=== PATIENT | female | born 1980 | race Caucasian/White ===

== ENCOUNTER → 2016-10-24 | Outpatient (REF) | payer MEDICARE, MEDICAID | LOC: M LAB REF 14:58 | PROVIDERS: ATTEND Physician Assistant | DX: J02.9 Acute pharyngitis, unspecified (principal) ==

== ENCOUNTER → 2016-11-11 | Outpatient (REF) | payer MEDICARE, MEDICAID | LOC: M LABNEURO 17:43 | PROVIDERS: ATTEND Physician Assistant Medical | DX: R51 Headache (principal) ==

== ENCOUNTER → 2017-01-24 | Outpatient (CLI) | payer MEDICARE, MEDICAID ==
[2017-01-28 00:06] LABS: LACOSAMIDE LEVEL 4.8 ug/mL (5.0-10.0)
== END ==
LOC: M WUC 08:43
PROVIDERS: ATTEND Psychiatry & Neurology Neurology
DX: G40.209 Localization-related (focal) (partial) symptomatic epilepsy and epileptic syndromes with complex partial seizures, not intractable, without status epilepticus (principal)

== ENCOUNTER 2017-09-01 08:54 | Day surgery (SDC) | payer MEDICARE, MEDICAID ==
[2017-09-01] MEDS: NS 1,000 ML IV (09:14)
[2017-09-01] MEDS ORDERED: fentaNYL 100 MCG/2 ML INJECTION (J3010) As Ordered (09:54)
[2017-09-01] MEDS ORDERED: PROPOFOL 200 MG/20 ML VIAL As Ordered ×2 (09:55→10:09)
[2017-09-01] MEDS ORDERED: LIDOCAINE 1% MDV 20ML VIAL As Ordered (09:55)
== END 2017-09-01 11:10 | disposition home or self-care (01) ==
LOC: M OPP 08:54
DX: Z12.11 Encounter for screening for malignant neoplasm of colon (principal); Z86.010 Personal history of colon polyps; K64.0 First degree hemorrhoids; R12 Heartburn; K22.8 Other specified diseases of esophagus; K21.9 Gastro-esophageal reflux disease without esophagitis; M79.7 Fibromyalgia; G43.909 Migraine, unspecified, not intractable, without status migrainosus; R56.9 Unspecified convulsions; J45.909 Unspecified asthma, uncomplicated; F41.9 Anxiety disorder, unspecified; F32.9 Major depressive disorder, single episode, unspecified; G47.30 Sleep apnea, unspecified; Z88.1 Allergy status to other antibiotic agents; Z88.5 Allergy status to narcotic agent; Z88.8 Allergy status to other drugs, medicaments and biological substances; Z91.018 Allergy to other foods; Z79.899 Other long term (current) drug therapy; Z80.1 Family history of malignant neoplasm of trachea, bronchus and lung; Z80.0 Family history of malignant neoplasm of digestive organs; Z80.3 Family history of malignant neoplasm of breast; Z87.891 Personal history of nicotine dependence
CPT/HCPCS: G0105

== ENCOUNTER → 2017-10-23 | Outpatient (CLI) | payer MEDICARE, MEDICAID | LOC: M WUC 12:55 | DX: S60.021A Contusion of right index finger without damage to nail, initial encounter (principal); Y92.89 Other specified places as the place of occurrence of the external cause; Y93.89 Activity, other specified; X58.XXXA Exposure to other specified factors, initial encounter; Y99.8 Other external cause status | CPT/HCPCS: 73140 ==

== ENCOUNTER → 2019-05-19 | Outpatient (CLI) | payer MEDICARE, MEDICAID ==
[~2019-05-19] MED LIST: AZEL1SPR3; BENA25CA4 PO; BIRTH; BOTO10VL SUBQ; DULO1CAP5 PO; EPIP0.3I2 IM; HYDR-3713 PO; HYDR50TA70 PO; SERT-138 PO; TEGR1TAB PO; VIMP200T PO
--- NOTE | 2019-06-02 01:13 | ECWPNPC ---
PATIENT NAME: TIFFANIE HUFF : 1980 GENDER: FEMALE VISIT DATE: 05/19/2019 DISCHARGE DATE: 05/19/19 1636 VISIT LOCKED DATE TIME: PHYSICIAN: YARA LIZ MD RESOURCE: YARA LIZ MD REASON FOR APPOINTMENT 1. FIBROMYALGIA HISTORY OF PRESENT ILLNESS PAIN SCREENING: PATIENT HAS A COMPLAINT OF ACUTE OR CHRONIC PAIN :YES 38 YEAR OLD FEMALE PATIENT WITH A HISTORY OF CHRONIC MULTIPLE BODY PAIN. THE PATIENT DESCRIBES THE PAIN BURNING, SHOOTING, DAILY, AND CONTINUOUS WITH A PAIN SCORE OF 6-10/10 DEPENDING ON PHYSICAL ACTIVITY. THE PATIENT STATES HER PAIN SPONTANEOUSLY BEGAN IN 2012. 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 THE PATIENT STATES SHE IS USING GABAPENTIN 300 MG AND CYMBALTA 30 MG 1 TABLET EACH DAILY. THE PATIENT SAYS SHE HAS RECEIVED TRIGGER POINT INJECTIONS IN THE PAST THAT HELPED WITH HER PAIN. PATIENT DENIES UNEXPLAINABLE WEIGHT LOSS, FEVER, CHILLS, NEW CHANGES ON HER URINARY OR BOWEL CONTROL. FALL RISK SCREENING: SCREENING :NO FALLS REPORTED IN THE LAST YEAR CURRENT MEDICATIONS TAKING GABAPENTIN 300 MG CAPSULE 1 CAPSULE ORALLY ONCE A DAY TAKING CYMBALTA 30 MG CAPSULE DELAYED RELEASE PARTICLES 1 CAPSULE ORALLY ONCE A DAY TAKING TEGRETOL 200 MG TABLET 600 MG ORALLY TWICE A DAY TAKING CANDESARTAN CILEXETIL 32 MG TABLET 1 TABLET ORALLY ONCE A DAY TAKING ZYRTEC 1 TAB ORAL DAILY TAKING DEDE 1 TAB ORALLY 180 MG DAILY TAKING LEVOCETIRIZINE DIHYDROCHLORIDE 5 MG TABLET 1 TABLET IN THE EVENING ORALLY ONCE A DAY TAKING DYMISTA NASAL SPRAY AZELASTINE HYRDOCHLORIDE 137MCG & FLUTICASONE PROPIONATE 50MCG( SOLUTION ONE SPRAY PER NOSTRIL NASALLLY TWICE DAILY TAKING DEXILANT 60 MG CAPSULE DELAYED RELEASE 1 CAPSULE ORALLY ONCE A DAY TAKING LINZESS 290 MCG CAPSULE ONE P.O. DAILY TAKING VIMPAT 100 MG TABLET 4 TABS ORALLY TWICE A DAY TAKING BOTOX 200 UNIT SOLUTION RECONSTITUTED INJECTION EVERY 3 MONTHS NOT-TAKING LEVOTHROID 25 MCG TABLET 1 TABLET ON AN EMPTY STOMACH IN THE MORNING P.O. ONCE A DAY NOT-TAKING FEXOFENADINE HCL 180 MG TABLET 1 TABLET P.O. ONCE A DAY NOT-TAKING FLUTICASONE FUROATE 27.5 MCG/SPRAY SUSPENSION 2 PUFFS NASALLY ONCE A DAY NOT-TAKING SUDAFED 30 MG TABLET 1 TABLET NEEDED ORALLY EVERY 6 HRS MEDICATION LIST REVIEWED AND RECONCILED WITH THE PATIENT PAST MEDICAL HISTORY EPILEPSY MIGRAINES WITH AURA ALLERGIES-SEASONAL ASTHMA MOBID OBESITY DEPRESSION ANXIETY CHRONIC PAIN FIBROMYALGIA CHRONIC CONSTIPATION ALLERGIES RASPBERRY: DYSPNEA - ALLERGY CIPRO: ANAPHYLAXIS - ALLERGY NITROFURANTOIN: ANAPHYLAXIS - ALLERGY CEFOTETAN DISODIUM: HIVES - ALLERGY ERYTHROMYCIN: HIVES - ALLERGY TREE NUTS: ANAPHYLAXIS - ALLERGY CAT & DOG: SNEEZING - ALLERGY MOLD: SNEEZING - ALLERGY CEFTIN: HIVES - ALLERGY FENTANYL: CHEST PAIN - ALLERGY CODEINE SULFATE: COULD INCREASE SEIZURE ACTIVITY - CONTRAINDICATION TRAMADOL HCL: COULD INCREASE SEIZURE ACTIVITY - CONTRAINDICATION TOPAMAX: SUICIDAL - SIDE EFFECTS SURGICAL HISTORY CHOLECYSTECTOMY 04/2012 T & A LIGAMENT REPAIR ON LEFT ANKLE AGE 18 LIGAMENT ON LEFT WRIST AGE 18 LIGAMENT REPAIR ON RIGHT SHOULDER AGE 18 GASTRIC BYPASS 04/26/19 FAMILY HISTORY FATHER: 67 YRS, LUNG CANCER, SEPSIS MOTHER: ALIVE 58 YRS, CERVICAL CANCER SIBLINGS: ALIVE MATERNAL GRAND MOTHER: , COLON CANCER PATERNAL AUNT: LATE 30'S YRS, BREAST CANCER, DIAGNOSED AT LATE 30 2 SISTER(S) - HEALTHY. 2DAUGHTER(S) - HEALTHY. COLON CA- M.GRANDMOTHERBREAST CANCER- PATERNAL AUNTS X 2FATHER- ASTHMA, COPDSIBLINGS- HEALTHY. SOCIAL HISTORY GENERAL: TOBACCO USE ARE YOU A:NEVER SMOKER OTHERS AT HOME: CHILDREN. HOUSING: OWNS HOME. EDUCATION LEVEL OF EDUCATION:COLLEGE DIET: REGULAR- S/P GASTRIC BYPASS 04/26/19. LANGUAGE LANGUAGES SPOKEN:PERSIAN DOMESTIC VIOLENCE NONE. NEW PATIENT PAIN DIARY PATIENT DESCRIBES PAIN :SHOOTING FROM 0-10, WHAT LEVEL IS YOUR PAIN TODAY?7 PRECIPITATING FACTORS LYING DOWN MAKES PAIN WORSE ALLEVIATING FACTORS LIDOCAINE INJECTIONS DID HELP HER BACK, BUT THEY WERE NOT USED ON ANY OTHER BODY PARTS, HEAT AND ICE DO HELP, STATES SHE CONTINUES TO DO PT- STATES IT DOES NOT HELP BUT ALSO DOES NOT MAKE PAIN WORSE, GABAPENTIN DOES NOT HELP- NEUROLOGIST DOES NOT WANT DOSE INCREASED DUE TO SEIZURE DISORDER IMPACT ON FUNCTION NOT ABLE TO DO NORMAL ACTIVITES, DOES NOT SLEEP WELL IS THERE A CHANCE YOU COULD BE ?NO HAVE YOU BEEN SICK IN THE LAST WEEK (COLD, COUGH, FEVER, FLU, ETC)NO DO YOU TAKE ANY BLOOD THINNERS?NO STOPPED LOVENOX 05/17/19 WAS ORDERED POST OP GASTRIC BYPASS LAST DOSE 05/17/19 DO YOU HAVE ANY RASHES OR OPEN SORES?NO ANY CHANGE IN BOWEL OR BLADDER CONTROL?NO ARE YOU ALLERGIC TO SHELLFISH OR IV DYE?NO ARE YOU DIABETIC?NO DO YOU HAVE A PACEMAKER OR DEFIBRILLATOR?NO ANY NEW PROBLEMS WITH MEDICINES OR NEW ALLERGIESNO ANY NEW PATTERNS OF PAIN OR NUMBNESS?NO HAVE YOU FALLEN IN THE LAST 6 MONTHS?NO DO YOU USE ANY TYPE OF TOBACCO (SMOKE, SMOKELESS, CHEW, ETC.)NO ARE YOU ABUSED, NEGLECTED, OR IN AN UNSAFE ENVIRONMENT?NO DO YOU HAVE THOUGHTS OF HURTING YOURSELF OR SOMEONE ELSE?NO INTENSITY SCALE REVIEWEDNUMBER RECREATIONAL DRUG USE DENIES. EXERCISE: USES ELLIPTICAL, TREADMILL, AND BIKE. LEARNING BARRIERS / SPECIAL NEEDS BARRIERS TO LEARNING?YES COMMENTSDOCUMENTED IN NOTES SECTION> LEARNING DISABILTY HEARING IMPAIRED?NO VISION IMPAIRED?YES GLASSES COGNITIVELY IMPAIRED?NO READINESS TO LEARN?YES LEARNING PREFERENCES?NO LEARNING CAPABILITIES PRESENT?YES EMOTIONAL BARRIERS?NO SPECIAL DEVICES?NO GOLD BEATER NEEDED?NO PAIN CLINIC PFS, CLERGY, PUBLIC HEALTH REFERRALS PFS REFERRAL NEEDED?NO CLERGY REFERRAL NEEDED?NO PUBLIC HEALTH REFERRAL NEEDED?NO WAS THE PROVIDER NOTIFIED OF ANY PERTINENT INFO?YES HAS THE PATIENT BEEN EDUCATED REGARDING HIS/HER PLAN OF CARE?YES HAS THE PATIENT BEEN EDUCATED REGARDING PAIN, THE RISK FOR PAIN, THE IMPORTANCE OF EFFECTIVE PAIN MANAGEMENT, AND THE PAIN ASSESSMENT PROCESS?YES LATEX QUESTIONNAIRE LATEX ALLERGY : HAVE YOU EVER DEVELOPED ANY TYPE OF REACTION AFTER HANDLING LATEX PRODUCTS SUCH RUBBER GLOVES, CONDOMS, DIAPHRAGMS, BALLOONS, SOCKS, OR UNDERWEAR?NO LATEX ALLERGY : HAVE YOU EVER DEVELOPED ANY TYPE OF REACTION DURING OR AFTER DENTAL APPOINTMENT, VAGINAL/RECTAL EXAMINATION, SURGICAL PROCEDURE, OR ANY OTHER EXPOSURE?NO LATEX RISK : HAVE YOU EVER HAD ANY DIFFICULTY BREATHING OR HIVES AFTER EATING OR HANDLING ANY FRUITS, OR VEGETABLES; SUCH KIWI, BANANAS, STONE FRUITS, OR CHESTNUTSNO LATEX RISK : DO YOU HAVE A PREVIOUS PERSONAL HISTORY OF MORE THAN NINE SURGERIES, SPINA BIFIDA, OR REPEATED CATHERIZATIONS? NO LATEX RISK : ARE YOU FREQUENTLY EXPOSED TO LATEX PRODUCTS IN YOUR OCCUPATION?NO DATE ASKED : 05/19/2019 CAFFEINE 1-2/DAY. ADVANCE DIRECTIVE ADVANCE DIRECTIVE DISCUSSED WITH PATIENT:YES ANCELMO BARNETT [phone] (SO) MARITAL STATUS: SINGLE, WITH PARTNER FOR TEN YEARS. 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 HOSPITALIZATION/MAJOR DIAGNOSTIC PROCEDURE CHILDBIRTH SURGERIES REVIEW OF SYSTEMS REVIEWED BY: PROVIDER: YARA LIZ MD . CONSTITUTIONAL: ANY CHANGE IN YOUR MEDICAL CONDITION? NO . CHILLS NO . FEVER NO . INFECTION: DO YOU HAVE NEW INFECTIONS? NO . DO YOU HAVE HISTORY OF MRSA? NO . MUSCULOSKELETAL: ANY NEW PATTERNS OF PAIN OR NUMBNESS? YES- FIBROMYALGIA PAIN, PAIN IN BIALTERAL NECK, BIALTERAL SHOULDERS, BIALTERAL HANDS, BILATERAL HIPS, BILATERAL LOWER BACK AND BILATERAL KNEES . SYTEMIC LUPUS NO . GASTROENTEROLOGY: ANY NEW CHANGE IN BOWEL CONTROL? NO . BARRETTS ESOPHAGUS NO . CIRRHOSIS NO . HEPATITIS NO . LIVER FAILURE NO . ACID REFLUX YES . UNEXPLAINED WEIGHT LOSS NO . GENITOURINARY: ANY NEW CHANGE IN BLADDER CONTROL? NO . IS THERE A CHANCE YOU COULD BE ? NO . HEMATOLOGY/LYMPH: DO YOU TAKE ANY BLOOD THINNERS? (FOR EXAMPLE- COUMADIN, PLAVIX, AGGRENOX, PLATEL, PRADAXA, OR XARELTO) NO- JUST FINISHED 20 DAYS DOSE POST GASTRIC BYPASS SURGERY, LAST DOSE WAS 05/17/19 LOVENOX DAILY . WHEN WAS YOUR LAST DOSE? DATE: TIME: . LOW PLATELET COUNT NO . SICKLE CELL DISEASE NO . VON WILLIEBRANDS NO . FACTOR V LEIDEN NO . THALLASEMIA NO . ANEMIA NO . EASY BRUISING NO . NEUROLOGY: HAVE YOU FALLEN IN THE PAST 12 MONTHS? NO . ANY NEW EXTREMITY NUMBNESS OR WEAKNESS? YES- NUMBNESS IN RIGHT LEG . HEAD INJURY YES- HEAD INJURY WITH CONCUSSION AT AGE 15 AND ALSO WHEN SHE STARTED HAVING SEIZURES . DEMENTIA NO . CEREBRAL PALSY NO . MULTIPLE SCLEROSIS NO . DIZZINESS NO . HEADACHE HAS A HISTORY OF MIGRAINES . STROKES NO . VERTIGO NO . CARDIOLOGY: DO YOU HAVE A PACEMAKER OR DEFIBRILLATOR? NO . ANGINA NO . HEART ATTACK NO . HEART SURGERY NO . CONGESTIVE HEART FAILURE/FLUID OVERLOAD NO . CHEST PAIN NO . HIGH BLOOD PRESSURE NO . IRREGULAR HEART BEAT NO . RESPIRATORY: HAVE YOU BEEN SICK IN THE PAST WEEK? NO . FEVER NO . FLU LIKE SYMPTOMS? NO . CPAP NO- USED TO WEAR CPAP . BYPAP NO . ASTHMA YES . EMPHYSEMA NO . CHRONIC LUNG DISEASES NO . SHORTNESS OF BREATH ON EXERTION NO . COUGH NO . SNORING NO . INTEGUMENTARY: DO YOU HAVE ANY RASHES OR OPEN SORES? NO . ALLERGIC/IMMUNO: ARE YOU ALLERGIC TO IV DYE? NO . ANY NEW ALLERGIES? NO . PSYCHIATRIC: DO YOU HAVE THOUGHTS OF HURTING YOURSELF OR SOMEONE ELSE? NO . ARE YOU ABUSED, NEGLECTED, OR IN AN UNSAFE ENVIRONMENT? NO . ENDOCRINOLOGY: ARE YOU DIABETIC? NO . THYROID DISORDER NO . OTHER: DO YOU NEED ANY PRESCRIPTIONS? NO . IF YES, PLEASE LIST: ____ . ANY NEW PROBLEMS WITH YOUR MEDICATIONS? NO . WHEN DID YOU LAST EAT? ____ . WHEN DID YOU LAST DRINK? ____ . WHAT DID YOU LAST DRINK? ____ . NAME OF PERSON DRIVING YOU HOME? ____ . DO YOU HAVE ANY OTHER QUESTIONS OR CONCERNS YES- STATES SHE HAS PAIN IN SEVERAL AREAS THOUGHT TO BE FIBROMYALGIA PAIN, WOULD LIKE HELP WITH PAIN CONTROL . VITAL SIGNS WT 251.6 LBS, HT 63.5 IN, BMI 43.87 INDEX, BP 120/77 MM HG, HR 90 /MIN, RR 18 /MIN, TEMP 97.4 F, OXYGEN SAT % 98%, SAFE IN ENV? (Y/N) YES, NA INITIALS SC 14:25, REVIEWED BY: PRECIOUS. EXAMINATION GENERAL EXAMINATION: PATIENT IS ALERT O X 3 AND COOPERATIVE. LUNGS CLEAR, TO AUSCULTATION. HEART: NO MURMURS OR GALLOPS; FACIAL CRANIAL NERVES ARE GROSSLY NORMAL. GOOD SYMMETRY OF FACIAL MUSCLE MOVEMENT. NORMAL VISUAL GONZALEZ. TENDERNESS IN THE PARASPINAL MUSCLE GROUPS OF THE CERVICAL AND LOW BACK. PRESENCE OF BANDS OF TISSUE AND TRIGGER POINTS WITH RESTRICTION OF MOVEMENT OF THE NECK AND LOW BACK. THE PATIENT REPORTS SHE HAS HAD SOME STUDIES DONE IN THE PAST. MRI OF THE CERVICAL SPINE DONE ON 03/02/2018 SHOWS SOME SIGNAL CHANGES AT THE BASE OF THE DENS WITH DISCONTINUITY OF THE ANTERIOR CORTEX AND OSTEOPHYTE COMPLEXES OVER MULTIPLE LEVELS. MRI OF THE LUMBAR SPINE DONE ON 03/02/2018 SHOWS SMALL DISK OSTEOPHYTE COMPLEX AT L5-S1. 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 TREATMENT PAIN OF MULTIPLE SITES CLINICAL NOTES: WE DISCUSSED SEVERAL ISSUES WITH MS. ROMO'S PAIN MANAGEMENT CASE. DUE TO THE TRIGGER POINTS, BANDS OF TISSUE, AND RESTRICTION OF MOVEMENT, I WOULD LIKE TO MOVE FORWARD WITH A TRIGGER POINT INJECTION AT THIS TIME. WE DISCUSSED THE BENEFITS, RISKS, AND ALTERNATIVES OF THE INJECTION AND THE PATIENT WOULD LIKE TO PROCEED. DEPENDING ON THE TRIGGER POINT INJECTION RESULTS, I MAY CONSIDER TRYING FACET BLOCKS OR RADIOFREQUENCY ABLATION IN THE FUTURE. I WILL REQUEST COPIES OF THE PATIENT'S LUMBAR AND CERVICAL MRI'S THAT WERE DONE AT [facility]. THE PATIENT WILL FOLLOW UP IN SEVERAL WEEKS AFTER HER INJECTION. INSTRUCTIONS WERE GIVEN, QUESTIONS WERE ANSWERED, PATIENT REPORTS UNDERSTANDING AND AGREES WITH THE PLAN. I, JAZMINE ANDINO, DOCUMENTED THE ABOVE INFORMATION ACTING A SCRIBE FOR DR. LIZ. I HAVE REVIEWED THE ABOVE DOCUMENT, WRITTEN BY JAZMINE DIORIBJessica AND I VERIFY THAT IT IS ACCURATE. DEAR HUGO MARION NP: THANK YOU FOR YOUR KIND REFERRAL OF TIFFANIE BARNETT. IF YOU WANT TO DISCUSS HER CASE WITH ME PLEASE CALL ME AT THE PAIN CENTER AT [phone]. SINCERELY, YARA LIZ MD PAIN MEDICINE . OTHERS NOTES: TRIGGER POINT INJECTION MATERIAL WAS PRINTED. PROCEDURE CODES FA211 ESTABILISHED PATIENT [facility] FACILITY CHARGE [id number] CURRENT MEDS W/DOSAGES DOCUMENTED G8730 PAIN ASSESS POS TOOL F/U PLAN DOC DISPOSITION & COMMUNICATION FOLLOW UP REASON: TPI ELECTRONICALLY SIGNED BY YARA LIZ MD, MD ON 06/01/2019 AT 03:07 PM EDT DISCLAIMER : THIS IS A VISIT SUMMARY EXTRACTED FROM THE [employer] CHART. IT IS NOT A COPY OF THE [employer] PROGRESS NOTE. MTDD
== END ==
LOC: M PAIN 14:15
PROVIDERS: ATTEND Anesthesiology
DX: M54.2 Cervicalgia (principal); M79.18 Myalgia, other site; M48.061 Spinal stenosis, lumbar region without neurogenic claudication; M47.816 Spondylosis without myelopathy or radiculopathy, lumbar region; G40.909 Epilepsy, unspecified, not intractable, without status epilepticus; G43.109 Migraine with aura, not intractable, without status migrainosus; J45.909 Unspecified asthma, uncomplicated; K21.9 Gastro-esophageal reflux disease without esophagitis; Z86.59 Personal history of other mental and behavioral disorders; Z98.84 Bariatric surgery status; Z88.1 Allergy status to other antibiotic agents; Z88.5 Allergy status to narcotic agent; Z88.8 Allergy status to other drugs, medicaments and biological substances; Z91.018 Allergy to other foods; E66.01 Morbid (severe) obesity due to excess calories; Z68.41 Body mass index [BMI] 40.0-44.9, adult; Z79.899 Other long term (current) drug therapy

== ENCOUNTER → 2019-05-26 | Outpatient (CLI) | payer MEDICARE, MEDICAID ==
[2019-05-26 12:59] LABS: BASO % 0.5 % (0.0-1.0); EOS # 0.1 10^3/uL (0.0-0.5); HEMATOCRIT 42.3 % (36.0-47.0); HEMOGLOBIN 14.8 g/dl (12.0-15.5); LYMPH # 1.8 10^3/uL (1.5-5.0); LYMPH % 31.1 % (24.0-44.0); MEAN CORPUSCULAR HEMOGLOBIN 33.4 pg (27.0-33.0); MEAN CORPUSCULAR VOLUME 95.5 fl (80.0-96.0); MONO # 0.6 10^3/uL (0.0-0.8); MONO % 9.6 % (0.0-5.0); NEUTROPHILS # 3.3 10^3/uL (1.5-8.5); NEUTROPHILS % 57.5 % (36.0-66.0); PLATELET COUNT, AUTOMATED 208 10^3/uL (150-450); RED BLOOD COUNT 4.43 10^6/uL (4.00-5.40); WHITE BLOOD COUNT 5.7 10^3/uL (4.0-10.0)
[2019-05-26 13:00] LABS: HEMATOCRIT 42.3 % (36.0-47.0)
[2019-05-26 13:17] LABS: HEMOGLOBIN A1c 4.4 %
[2019-05-26 13:31] LABS: ALBUMIN 3.6 GM/DL (3.2-5.2); ALT/SGPT 39 U/L (12-78); BILIRUBIN,TOTAL 0.4 MG/DL (0.2-1.0); BLOOD UREA NITROGEN 12 MG/DL (7-18); CALCIUM LEVEL 8.7 MG/DL (8.5-10.1); CARBON DIOXIDE LEVEL 27 MEQ/L (21-32); CHLORIDE LEVEL 101 MEQ/L (98-107); CREATININE FOR GFR 0.67 MG/DL (0.55-1.30); FERRITIN 64 NG/ML (8-252); GLOMERULAR FILTRATION RATE > 60.0 (>60); GLUCOSE, FASTING 66 MG/DL (70-100); IRON (FE) 72 UG/DL (50-170); MAGNESIUM LEVEL 2.1 MG/DL (1.8-2.4); PERCENT SATURATION 39.8 % (13.2-45.0); PHOSPHORUS LEVEL 2.7 MG/DL (2.5-4.9); POTASSIUM SERUM 3.2 MEQ/L (3.5-5.1); SODIUM LEVEL 139 MEQ/L (136-145); TOTAL IRON BINDING CAPACITY 181 UG/DL (250-450); TOTAL PROTEIN 6.5 GM/DL (6.4-8.2)
[2019-05-26 13:39] LABS: TOTAL 25(OH) VITAMIN D 44.7 NG/ML (30.0-100.0); VITAMIN B12 LEVEL 826 PG/ML (247-911)
== END ==
LOC: M WUC 10:31
PROVIDERS: ATTEND Surgery
DX: K91.2 Postsurgical malabsorption, not elsewhere classified (principal); E55.9 Vitamin D deficiency, unspecified; Z98.84 Bariatric surgery status; G40.909 Epilepsy, unspecified, not intractable, without status epilepticus

== ENCOUNTER → 2019-05-26 | Outpatient (CLI) | payer MEDICARE, MEDICAID | LOC: M WUC 10:39 | PROVIDERS: ATTEND Nurse Practitioner | DX: G40.909 Epilepsy, unspecified, not intractable, without status epilepticus (principal) ==

== ENCOUNTER → 2019-06-27 | Outpatient (CLI) | payer MEDICARE, MEDICAID | LOC: M WUC 10:43 | PROVIDERS: ATTEND Nurse Practitioner | DX: G40.909 Epilepsy, unspecified, not intractable, without status epilepticus (principal) ==

== ENCOUNTER → 2019-07-20 | Outpatient (CLI) | payer MEDICARE, MEDICAID ==
[~2019-07-20] MED LIST changes: +BUPIVACAINE HCL 0.25% 10 ML VIAL As Ordered ONE; +BUPIVACAINE HCL 0.25% 30 ML VIAL As Ordered ONE; +TRIAMCINOLONE ACETONIDE SUSP 40 MG/ML VIAL (J3301) As Ordered ONE; +diazePAM 5 MG TAB As Ordered ONE
--- NOTE | 2019-07-27 04:08 | ECWPNPC ---
PATIENT NAME: TIFFANIE HUFF : 1980 GENDER: FEMALE VISIT DATE: 07/20/2019 DISCHARGE DATE: 07/20/19 1051 VISIT LOCKED DATE TIME: PHYSICIAN: YARA LIZ MD RESOURCE: YARA LIZ MD REASON FOR APPOINTMENT 1. TPI HISTORY OF PRESENT ILLNESS HISTORY OF PRESENT ILLNESS: PAIN THE PATIENT DESCRIBES THE PAIN... FALL RISK SCREENING: SCREENING :NO FALLS REPORTED IN THE LAST YEAR CURRENT MEDICATIONS TAKING GABAPENTIN 300 MG CAPSULE 1 CAPSULE ORALLY ONCE A DAY, NOTES: 07/19/191999 TAKING CYMBALTA 30 MG CAPSULE DELAYED RELEASE PARTICLES 1 CAPSULE ORALLY ONCE A DAY, NOTES: 07/19/191999 TAKING TEGRETOL 200 MG TABLET 3 TABLET ORALLY TWICE A DAY, NOTES: 07/20/2019 0730 TAKING CANDESARTAN CILEXETIL 32 MG TABLET 1 TABLET ORALLY ONCE A DAY, NOTES: 07/19/191999 TAKING ZYRTEC 1 TAB ORAL DAILY, NOTES: 07/19/191999 TAKING DEDE 1 TAB ORALLY 180 MG DAILY, NOTES: 07/19/191999 TAKING LEVOCETIRIZINE DIHYDROCHLORIDE 5 MG TABLET 1 TABLET IN THE EVENING ORALLY ONCE A DAY, NOTES: 07/19/291999 TAKING DYMISTA NASAL SPRAY AZELASTINE HYRDOCHLORIDE 137MCG & FLUTICASONE PROPIONATE 50MCG( SOLUTION ONE SPRAY PER NOSTRIL NASALLLY TWICE DAILY, NOTES: 07/19/191999 TAKING DEXILANT 60 MG CAPSULE DELAYED RELEASE 1 CAPSULE ORALLY ONCE A DAY, NOTES: 07/19/191999 TAKING LINZESS 290 MCG CAPSULE ONE P.O. DAILY, NOTES: 07/19/19 08 TAKING VIMPAT 100 MG TABLET 4 TABS ORALLY TWICE A DAY, NOTES: 07/20/19 08 TAKING BOTOX 200 UNIT SOLUTION RECONSTITUTED INJECTION EVERY 3 MONTHS, NOTES: 06/24/19 NOT-TAKING LEVOTHROID 25 MCG TABLET 1 TABLET ON AN EMPTY STOMACH IN THE MORNING P.O. ONCE A DAY NOT-TAKING FEXOFENADINE HCL 180 MG TABLET 1 TABLET P.O. ONCE A DAY NOT-TAKING FLUTICASONE FUROATE 27.5 MCG/SPRAY SUSPENSION 2 PUFFS NASALLY ONCE A DAY NOT-TAKING SUDAFED 30 MG TABLET 1 TABLET NEEDED ORALLY EVERY 6 HRS MEDICATION LIST REVIEWED AND RECONCILED WITH THE PATIENT PAST MEDICAL HISTORY MIGRAINES WITH AURA EPILEPSY ALLERGIES-SEASONAL ASTHMA MOBID OBESITY DEPRESSION ANXIETY CHRONIC PAIN FIBROMYALGIA CHRONIC CONSTIPATION ALLERGIES RASPBERRY: DYSPNEA - ALLERGY CIPRO: ANAPHYLAXIS - ALLERGY NITROFURANTOIN: ANAPHYLAXIS - ALLERGY CEFOTETAN DISODIUM: HIVES - ALLERGY ERYTHROMYCIN: HIVES - ALLERGY TREE NUTS: ANAPHYLAXIS - ALLERGY CAT & DOG: SNEEZING - ALLERGY MOLD: SNEEZING - ALLERGY CEFTIN: HIVES - ALLERGY FENTANYL: CHEST PAIN - ALLERGY CODEINE SULFATE: COULD INCREASE SEIZURE ACTIVITY - CONTRAINDICATION TRAMADOL HCL: COULD INCREASE SEIZURE ACTIVITY - CONTRAINDICATION TOPAMAX: SUICIDAL - SIDE EFFECTS SURGICAL HISTORY CHOLECYSTECTOMY 04/2012 LIGAMENT REPAIR ON LEFT ANKLE AGE 18 LIGAMENT ON LEFT WRIST AGE 18 LIGAMENT REPAIR ON RIGHT SHOULDER AGE 18 GASTRIC BYPASS 04/26/19 FAMILY HISTORY FATHER: 67 YRS, LUNG CANCER, SEPSIS MOTHER: ALIVE 58 YRS, CERVICAL CANCER SIBLINGS: ALIVE MATERNAL GRAND MOTHER: , COLON CANCER PATERNAL AUNT: LATE 30'S YRS, BREAST CANCER, DIAGNOSED AT LATE 30 2 SISTER(S) - HEALTHY. 2DAUGHTER(S) - HEALTHY. COLON CA- M.GRANDMOTHERBREAST CANCER- PATERNAL AUNTS X 2FATHER- ASTHMA, COPDSIBLINGS- HEALTHY. SOCIAL HISTORY GENERAL: TOBACCO USE ARE YOU A:: NEVER SMOKER. OTHERS AT HOME: CHILDREN. HOUSING: OWNS HOME. EDUCATION LEVEL OF EDUCATION:COLLEGE DIET: REGULAR- S/P GASTRIC BYPASS 04/26/19. LANGUAGE LANGUAGES SPOKEN:ICELANDIC DOMESTIC VIOLENCE NONE. NEW PATIENT PAIN DIARY PATIENT DESCRIBES PAIN :SHOOTING FROM 0-10, WHAT LEVEL IS YOUR PAIN TODAY?7 PRECIPITATING FACTORS LYING DOWN MAKES PAIN WORSE ALLEVIATING FACTORS LIDOCAINE INJECTIONS DID HELP HER BACK, BUT THEY WERE NOT USED ON ANY OTHER BODY PARTS, HEAT AND ICE DO HELP, STATES SHE CONTINUES TO DO PT- STATES IT DOES NOT HELP BUT ALSO DOES NOT MAKE PAIN WORSE, GABAPENTIN DOES NOT HELP- NEUROLOGIST DOES NOT WANT DOSE INCREASED DUE TO SEIZURE DISORDER IMPACT ON FUNCTION NOT ABLE TO DO NORMAL ACTIVITES, DOES NOT SLEEP WELL IS THERE A CHANCE YOU COULD BE ?NO HAVE YOU BEEN SICK IN THE LAST WEEK (COLD, COUGH, FEVER, FLU, ETC)NO DO YOU TAKE ANY BLOOD THINNERS?NO STOPPED LOVENOX 05/17/19 WAS ORDERED POST OP GASTRIC BYPASS LAST DOSE 05/17/19 DO YOU HAVE ANY RASHES OR OPEN SORES?NO ANY CHANGE IN BOWEL OR BLADDER CONTROL?NO ARE YOU ALLERGIC TO SHELLFISH OR IV DYE?NO ARE YOU DIABETIC?NO DO YOU HAVE A PACEMAKER OR DEFIBRILLATOR?NO ANY NEW PROBLEMS WITH MEDICINES OR NEW ALLERGIESNO ANY NEW PATTERNS OF PAIN OR NUMBNESS?NO HAVE YOU FALLEN IN THE LAST 6 MONTHS?NO DO YOU USE ANY TYPE OF TOBACCO (SMOKE, SMOKELESS, CHEW, ETC.)NO ARE YOU ABUSED, NEGLECTED, OR IN AN UNSAFE ENVIRONMENT?NO DO YOU HAVE THOUGHTS OF HURTING YOURSELF OR SOMEONE ELSE?NO INTENSITY SCALE REVIEWEDNUMBER RECREATIONAL DRUG USE DENIES. EXERCISE: USES ELLIPTICAL, TREADMILL, AND BIKE. LEARNING BARRIERS / SPECIAL NEEDS BARRIERS TO LEARNING?YES COMMENTSDOCUMENTED IN NOTES SECTION> LEARNING DISABILTY HEARING IMPAIRED?NO VISION IMPAIRED?YES GLASSES COGNITIVELY IMPAIRED?NO READINESS TO LEARN?YES LEARNING PREFERENCES?NO LEARNING CAPABILITIES PRESENT?YES EMOTIONAL BARRIERS?NO SPECIAL DEVICES?NO MECHANIC HELPER NEEDED?NO PAIN CLINIC PFS, CLERGY, PUBLIC HEALTH REFERRALS PFS REFERRAL NEEDED?NO CLERGY REFERRAL NEEDED?NO PUBLIC HEALTH REFERRAL NEEDED?NO WAS THE PROVIDER NOTIFIED OF ANY PERTINENT INFO?YES HAS THE PATIENT BEEN EDUCATED REGARDING HIS/HER PLAN OF CARE?YES HAS THE PATIENT BEEN EDUCATED REGARDING PAIN, THE RISK FOR PAIN, THE IMPORTANCE OF EFFECTIVE PAIN MANAGEMENT, AND THE PAIN ASSESSMENT PROCESS?YES LATEX QUESTIONNAIRE LATEX ALLERGY : HAVE YOU EVER DEVELOPED ANY TYPE OF REACTION AFTER HANDLING LATEX PRODUCTS SUCH RUBBER GLOVES, CONDOMS, DIAPHRAGMS, BALLOONS, SOCKS, OR UNDERWEAR?NO LATEX ALLERGY : HAVE YOU EVER DEVELOPED ANY TYPE OF REACTION DURING OR AFTER DENTAL APPOINTMENT, VAGINAL/RECTAL EXAMINATION, SURGICAL PROCEDURE, OR ANY OTHER EXPOSURE?NO DATE ASKED : 05/19/2019 LATEX RISK : HAVE YOU EVER HAD ANY DIFFICULTY BREATHING OR HIVES AFTER EATING OR HANDLING ANY FRUITS, OR VEGETABLES; SUCH KIWI, BANANAS, STONE FRUITS, OR CHESTNUTSNO LATEX RISK : DO YOU HAVE A PREVIOUS PERSONAL HISTORY OF MORE THAN NINE SURGERIES, SPINA BIFIDA, OR REPEATED CATHERIZATIONS? NO LATEX RISK : ARE YOU FREQUENTLY EXPOSED TO LATEX PRODUCTS IN YOUR OCCUPATION?NO CAFFEINE 1-2/DAY. ADVANCE DIRECTIVE ADVANCE DIRECTIVE DISCUSSED WITH PATIENT:YES ANCELMO BARNETT [phone] (SO) MARITAL STATUS: SINGLE, WITH PARTNER FOR TEN YEARS. 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 PRE PROCEDURE PHONE CALL 07/11/19 1035 BV. HOSPITALIZATION/MAJOR DIAGNOSTIC PROCEDURE CHILDBIRTH SURGERIES REVIEW OF SYSTEMS REVIEWED BY: PROVIDER: . CONSTITUTIONAL: ANY CHANGE IN YOUR MEDICAL CONDITION? NO . CHILLS NO . FEVER NO . INFECTION: DO YOU HAVE NEW INFECTIONS? NO . DO YOU HAVE HISTORY OF MRSA? NO . MUSCULOSKELETAL: ANY NEW PATTERNS OF PAIN OR NUMBNESS? NO . GASTROENTEROLOGY: ANY NEW CHANGE IN BOWEL CONTROL? NO . GENITOURINARY: ANY NEW CHANGE IN BLADDER CONTROL? NO . IS THERE A CHANCE YOU COULD BE ? NO . HEMATOLOGY/LYMPH: DO YOU TAKE ANY BLOOD THINNERS? (FOR EXAMPLE- COUMADIN, PLAVIX, AGGRENOX, PLATEL, PRADAXA, OR XARELTO) NO . WHEN WAS YOUR LAST DOSE? DATE: TIME: . NEUROLOGY: HAVE YOU FALLEN IN THE PAST 12 MONTHS? NO . ANY NEW EXTREMITY NUMBNESS OR WEAKNESS? NO . CARDIOLOGY: DO YOU HAVE A PACEMAKER OR DEFIBRILLATOR? NO . RESPIRATORY: HAVE YOU BEEN SICK IN THE PAST WEEK? NO . FEVER NO . FLU LIKE SYMPTOMS? NO . COUGH NO . INTEGUMENTARY: DO YOU HAVE ANY RASHES OR OPEN SORES? NO . ALLERGIC/IMMUNO: ARE YOU ALLERGIC TO IV DYE? NO . ANY NEW ALLERGIES? NO . PSYCHIATRIC: DO YOU HAVE THOUGHTS OF HURTING YOURSELF OR SOMEONE ELSE? NO . ARE YOU ABUSED, NEGLECTED, OR IN AN UNSAFE ENVIRONMENT? NO . ENDOCRINOLOGY: ARE YOU DIABETIC? NO . OTHER: DO YOU NEED ANY PRESCRIPTIONS? NO . IF YES, PLEASE LIST: ____ . ANY NEW PROBLEMS WITH YOUR MEDICATIONS? NO . WHEN DID YOU LAST EAT? ____07/19/19 2200 . WHEN DID YOU LAST DRINK? ____07/20/19 0730 . WHAT DID YOU LAST DRINK? ____WATER . NAME OF PERSON DRIVING YOU HOME? ____LM YADAV . DO YOU HAVE ANY OTHER QUESTIONS OR CONCERNS NO . VITAL SIGNS WT 230.8 LBS, HT 63.5 IN, BMI 40.24 INDEX, BP 127/81 MM HG, HR 91 /MIN, RR 18 /MIN, TEMP 97.6 F, OXYGEN SAT % 97%, SAFE IN ENV? (Y/N) YES, NA INITIALS AW 0933, REVIEWED BY: RAJ. ASSESSMENTS MYALGIA, OTHER SITE - M79.18 (PRIMARY) PROCEDURES PN TRIGGER POINT INJECTION WITH STEROIDS PRE PROCEDURE DIAGNOSIS 1. MYALGIA 2. PAIN AT BILATERAL LUMBAR AREA. POST PROCEDURE DIAGNOSIS 1. MYALGIA 2. PAIN AT BILATERAL LUMBAR AREA. PROCEDURE TRIGGER POINT INJECTION AT RIGHT AND LEFT LOW BACK AREA. SURGEON DR. YARA LIZ SENIOR RESEARCH FELLOW NONE ANESTHESIA LOCAL PRE PROCEDURE NOTE THE PATIENT HAS A HISTORY OF CHRONIC PAIN AT THE RIGHT AND LEFT LOW BACK AREA. I EVALUATED THE PATIENT AND REVIEWED THE CHART. THERE IS EVIDENCE OF BANDS OF TISSUE WITH RESTRICTION OF MOVEMENT AND PRESENCE OF TRIGGER POINT AT THE AFFECTED AREA. I WENT OVER THE RISKS, ALTERNATIVES, AND BENEFITS ASSOCIATED WITH THIS PROCEDURE. THE PATIENT WOULD LIKE TO PROCEED AND GIVES CONSENT TO PERFORM THE PROCEDURE. THE PATIENT DENIES UNEXPLAINABLE WEIGHT LOSS, FEVER, CHILLS, OR NEW CHANGES IN URINARY OR BOWEL CONTROL DESCRIPTION OF PROCEDURE THE PATIENT WAS BROUGHT TO THE PROCEDURE ROOM AND PLACED IN THE SITTING POSITION. THE AREA WAS CLEANED WITH ALCOHOL. THE PROCEDURE WAS DONE USING ASEPTIC STERILE TECHNIQUE. I CHECKED LATERALITY AND THE LEVEL WHERE THE PROCEDURE WAS GOING TO BE PERFORMED WITH THE PATIENT AND THE SUPPORTING STAFF AT THE MOMENT OF THE TIME OUT IN THE PROCEDURE ROOM. USING A 25-GAUGE NEEDLE, TRIGGER POINTS WERE INJECTED AT THE RIGHT AND LEFT LOW BACK AREA WITH A TOTAL OF 40 ML OF BUPIVACAINE 0.25% AND KENALOG 40 MG. THERE WAS NO EVIDENCE OF BLOOD, PARESTHESIA OR CEREBROSPINAL FLUID DURING THE PROCEDURE. THE PATIENT WAS SENT TO THE RECOVERY ROOM. THE PATIENT WAS MOVING THE EXTREMITIES AND DOING WELL. THERE WAS NO COMPLICATION DURING THE PROCEDURE POST PROCEDURE NOTE THE PATIENT WILL BE SEEN IN A FOLLOW UP IN THE NEXT FEW WEEKS. INSTRUCTIONS WERE GIVEN, QUESTIONS WERE ANSWERED, AND THE PATIENT EXPRESSED UNDERSTANDING AND AGREES WITH THE PLAN. I, JAZMINE ANDINO, DOCUMENTED THE ABOVE INFORMATION ACTING A SCRIBE FOR DR. LIZ. I HAVE REVIEWED THE ABOVE DOCUMENT, WRITTEN BY JAZMINE ANDINO SCRIBJessica AND I VERIFY THAT IT IS ACCURATE. PROCEDURE CODES 84367 INJ TRIGGER POINT 08/11 [facility] [place] [facility] [place] FOLLOW UP 3 WEEKS ELECTRONICALLY SIGNED BY YARA LIZ MD, MD ON 07/26/2019 AT 10:54 AM EST DISCLAIMER : THIS IS A VISIT SUMMARY EXTRACTED FROM THE [employer] CHART. IT IS NOT A COPY OF THE [employer] PROGRESS NOTE. CHIP
== END ==
LOC: M PAIN 09:45
PROVIDERS: ATTEND Anesthesiology
DX: M79.18 Myalgia, other site (principal); G43.909 Migraine, unspecified, not intractable, without status migrainosus; G40.909 Epilepsy, unspecified, not intractable, without status epilepticus; J45.909 Unspecified asthma, uncomplicated; Z86.59 Personal history of other mental and behavioral disorders; Z98.84 Bariatric surgery status; Z88.1 Allergy status to other antibiotic agents; Z88.5 Allergy status to narcotic agent; Z88.8 Allergy status to other drugs, medicaments and biological substances; Z91.018 Allergy to other foods; E66.01 Morbid (severe) obesity due to excess calories; Z68.41 Body mass index [BMI] 40.0-44.9, adult; Z79.899 Other long term (current) drug therapy
CPT/HCPCS: 20552; J3301

== ENCOUNTER → 2019-07-26 | Outpatient (CLI) | payer MEDICARE, MEDICAID ==
[~2019-07-26] MED LIST changes: -BUPIVACAINE HCL 0.25% 10 ML VIAL As Ordered ONE; -BUPIVACAINE HCL 0.25% 30 ML VIAL As Ordered ONE; -TRIAMCINOLONE ACETONIDE SUSP 40 MG/ML VIAL (J3301) As Ordered ONE; -diazePAM 5 MG TAB As Ordered ONE
== END ==
LOC: M WUC 08:33
PROVIDERS: ATTEND Nurse Practitioner
DX: G40.909 Epilepsy, unspecified, not intractable, without status epilepticus (principal)

== ENCOUNTER → 2019-07-29 | Outpatient (CLI) | payer MEDICARE, MEDICAID ==
--- NOTE | 2019-08-17 01:07 | ECWPNPC ---
PATIENT NAME: TIFFANIE HUFF : 1980 GENDER: FEMALE VISIT DATE: 07/29/2019 DISCHARGE DATE: 07/29/19 1410 VISIT LOCKED DATE TIME: PHYSICIAN: LILIA HERNANDEZ RESOURCE: LILIA HERNANDEZ REASON FOR APPOINTMENT 1. POST TPI/INCREASED PAIN HISTORY OF PRESENT ILLNESS HISTORY OF PRESENT ILLNESS: HERE FOR F/U ON AN URGENT BASIS FOR AGGREVATION IN RIGHT LOW BACK PAIN POST TPI LOW BACK ON 07/20/19.STATES SHE HAS HAD RESOLUTION OF LEFT LOW BACK PAIN SINCE PROCEDURE BUT HAS EXPERIENCED SEVERE AGGREVATION IN RIGHT LBP SINCE PROCEDURE.DENIES FEVER,ILLNESS OR REDDNESS OR SWELLING.MRI OF L/S SPINE DONE 03/02/18 IS REVIEWED.DISCUSSED TREATMENT OPTIONS. PAIN THE PATIENT DESCRIBES THE PAIN... FALL RISK SCREENING: SCREENING :NO FALLS REPORTED IN THE LAST YEAR CURRENT MEDICATIONS TAKING GABAPENTIN 300 MG CAPSULE 1 CAPSULE ORALLY ONCE A DAY TAKING CYMBALTA 30 MG CAPSULE DELAYED RELEASE PARTICLES 2 CAPS ORALLY ONCE A DAY, NOTES: 07/19/191999 TAKING TEGRETOL 200 MG TABLET 3 TABLET ORALLY TWICE A DAY, NOTES: 07/20/2019 0730 TAKING ZYRTEC 1 TAB ORAL DAILY, NOTES: 07/19/191999 TAKING DEDE 1 TAB ORALLY 180 MG DAILY, NOTES: 07/19/191999 TAKING LEVOCETIRIZINE DIHYDROCHLORIDE 5 MG TABLET 1 TABLET IN THE EVENING ORALLY ONCE A DAY, NOTES: 07/19/291999 TAKING DYMISTA NASAL SPRAY AZELASTINE HYRDOCHLORIDE 137MCG & FLUTICASONE PROPIONATE 50MCG( SOLUTION ONE SPRAY PER NOSTRIL NASALLLY TWICE DAILY, NOTES: 07/19/191999 TAKING DEXILANT 60 MG CAPSULE DELAYED RELEASE 1 CAPSULE ORALLY ONCE A DAY, NOTES: 07/19/191999 TAKING LINZESS 290 MCG CAPSULE ONE P.O. DAILY, NOTES: 07/19/19 08 TAKING VIMPAT 100 MG TABLET 4 TABS ORALLY TWICE A DAY, NOTES: 07/20/19799 TAKING BOTOX 200 UNIT SOLUTION RECONSTITUTED INJECTION EVERY 3 MONTHS, NOTES: 06/24/19 NOT-TAKING CANDESARTAN CILEXETIL 32 MG TABLET 1 TABLET ORALLY ONCE A DAY, NOTES: 07/19/191999 NOT-TAKING LEVOTHROID 25 MCG TABLET 1 TABLET ON AN EMPTY STOMACH IN THE MORNING P.O. ONCE A DAY NOT-TAKING FEXOFENADINE HCL 180 MG TABLET 1 TABLET P.O. ONCE A DAY NOT-TAKING FLUTICASONE FUROATE 27.5 MCG/SPRAY SUSPENSION 2 PUFFS NASALLY ONCE A DAY NOT-TAKING SUDAFED 30 MG TABLET 1 TABLET NEEDED ORALLY EVERY 6 HRS MEDICATION LIST REVIEWED AND RECONCILED WITH THE PATIENT PAST MEDICAL HISTORY MIGRAINES WITH AURA EPILEPSY ALLERGIES-SEASONAL ASTHMA MOBID OBESITY DEPRESSION ANXIETY CHRONIC PAIN FIBROMYALGIA CHRONIC CONSTIPATION ALLERGIES RASPBERRY: DYSPNEA - ALLERGY CIPRO: ANAPHYLAXIS - ALLERGY NITROFURANTOIN: ANAPHYLAXIS - ALLERGY CEFOTETAN DISODIUM: HIVES - ALLERGY ERYTHROMYCIN: HIVES - ALLERGY TREE NUTS: ANAPHYLAXIS - ALLERGY CAT & DOG: SNEEZING - ALLERGY MOLD: SNEEZING - ALLERGY CEFTIN: HIVES - ALLERGY FENTANYL: CHEST PAIN - ALLERGY CODEINE SULFATE: COULD INCREASE SEIZURE ACTIVITY - CONTRAINDICATION TRAMADOL HCL: COULD INCREASE SEIZURE ACTIVITY - CONTRAINDICATION TOPAMAX: SUICIDAL - SIDE EFFECTS SURGICAL HISTORY CHOLECYSTECTOMY 04/2012 LIGAMENT REPAIR ON LEFT ANKLE AGE 18 LIGAMENT ON LEFT WRIST AGE 18 LIGAMENT REPAIR ON RIGHT SHOULDER AGE 18 GASTRIC BYPASS 04/26/19 FAMILY HISTORY FATHER: 67 YRS, LUNG CANCER, SEPSIS MOTHER: ALIVE 58 YRS, CERVICAL CANCER SIBLINGS: ALIVE MATERNAL GRAND MOTHER: , COLON CANCER PATERNAL AUNT: LATE 30'S YRS, BREAST CANCER, DIAGNOSED AT LATE 30 2 SISTER(S) - HEALTHY. 2DAUGHTER(S) - HEALTHY. COLON CA- M.GRANDMOTHERBREAST CANCER- PATERNAL AUNTS X 2FATHER- ASTHMA, COPDSIBLINGS- HEALTHY. SOCIAL HISTORY GENERAL: TOBACCO USE ARE YOU A:: NEVER SMOKER. OTHERS AT HOME: CHILDREN. HOUSING: OWNS HOME. EDUCATION LEVEL OF EDUCATION:COLLEGE DIET: REGULAR- S/P GASTRIC BYPASS 04/26/19. LANGUAGE LANGUAGES SPOKEN:SINHALA DOMESTIC VIOLENCE NONE. NEW PATIENT PAIN DIARY PATIENT DESCRIBES PAIN :SHOOTING FROM 0-10, WHAT LEVEL IS YOUR PAIN TODAY?7 PRECIPITATING FACTORS LYING DOWN MAKES PAIN WORSE ALLEVIATING FACTORS LIDOCAINE INJECTIONS DID HELP HER BACK, BUT THEY WERE NOT USED ON ANY OTHER BODY PARTS, HEAT AND ICE DO HELP, STATES SHE CONTINUES TO DO PT- STATES IT DOES NOT HELP BUT ALSO DOES NOT MAKE PAIN WORSE, GABAPENTIN DOES NOT HELP- NEUROLOGIST DOES NOT WANT DOSE INCREASED DUE TO SEIZURE DISORDER IMPACT ON FUNCTION NOT ABLE TO DO NORMAL ACTIVITES, DOES NOT SLEEP WELL IS THERE A CHANCE YOU COULD BE ?NO HAVE YOU BEEN SICK IN THE LAST WEEK (COLD, COUGH, FEVER, FLU, ETC)NO DO YOU TAKE ANY BLOOD THINNERS?NO STOPPED LOVENOX 05/17/19 WAS ORDERED POST OP GASTRIC BYPASS LAST DOSE 05/17/19 DO YOU HAVE ANY RASHES OR OPEN SORES?NO ANY CHANGE IN BOWEL OR BLADDER CONTROL?NO ARE YOU ALLERGIC TO SHELLFISH OR IV DYE?NO ARE YOU DIABETIC?NO DO YOU HAVE A PACEMAKER OR DEFIBRILLATOR?NO ANY NEW PROBLEMS WITH MEDICINES OR NEW ALLERGIESNO ANY NEW PATTERNS OF PAIN OR NUMBNESS?NO HAVE YOU FALLEN IN THE LAST 6 MONTHS?NO DO YOU USE ANY TYPE OF TOBACCO (SMOKE, SMOKELESS, CHEW, ETC.)NO ARE YOU ABUSED, NEGLECTED, OR IN AN UNSAFE ENVIRONMENT?NO DO YOU HAVE THOUGHTS OF HURTING YOURSELF OR SOMEONE ELSE?NO INTENSITY SCALE REVIEWEDNUMBER RECREATIONAL DRUG USE DENIES. EXERCISE: USES ELLIPTICAL, TREADMILL, AND BIKE. LEARNING BARRIERS / SPECIAL NEEDS BARRIERS TO LEARNING?YES COMMENTSDOCUMENTED IN NOTES SECTION> LEARNING DISABILTY HEARING IMPAIRED?NO VISION IMPAIRED?YES GLASSES COGNITIVELY IMPAIRED?NO READINESS TO LEARN?YES LEARNING PREFERENCES?NO LEARNING CAPABILITIES PRESENT?YES EMOTIONAL BARRIERS?NO SPECIAL DEVICES?NO POWER LINEWORKER NEEDED?NO PAIN CLINIC PFS, CLERGY, PUBLIC HEALTH REFERRALS PFS REFERRAL NEEDED?NO CLERGY REFERRAL NEEDED?NO PUBLIC HEALTH REFERRAL NEEDED?NO WAS THE PROVIDER NOTIFIED OF ANY PERTINENT INFO?YES HAS THE PATIENT BEEN EDUCATED REGARDING HIS/HER PLAN OF CARE?YES HAS THE PATIENT BEEN EDUCATED REGARDING PAIN, THE RISK FOR PAIN, THE IMPORTANCE OF EFFECTIVE PAIN MANAGEMENT, AND THE PAIN ASSESSMENT PROCESS?YES LATEX QUESTIONNAIRE LATEX ALLERGY : HAVE YOU EVER DEVELOPED ANY TYPE OF REACTION AFTER HANDLING LATEX PRODUCTS SUCH RUBBER GLOVES, CONDOMS, DIAPHRAGMS, BALLOONS, SOCKS, OR UNDERWEAR?NO LATEX ALLERGY : HAVE YOU EVER DEVELOPED ANY TYPE OF REACTION DURING OR AFTER DENTAL APPOINTMENT, VAGINAL/RECTAL EXAMINATION, SURGICAL PROCEDURE, OR ANY OTHER EXPOSURE?NO DATE ASKED : 05/19/2019 LATEX RISK : HAVE YOU EVER HAD ANY DIFFICULTY BREATHING OR HIVES AFTER EATING OR HANDLING ANY FRUITS, OR VEGETABLES; SUCH KIWI, BANANAS, STONE FRUITS, OR CHESTNUTSNO LATEX RISK : DO YOU HAVE A PREVIOUS PERSONAL HISTORY OF MORE THAN NINE SURGERIES, SPINA BIFIDA, OR REPEATED CATHERIZATIONS? NO LATEX RISK : ARE YOU FREQUENTLY EXPOSED TO LATEX PRODUCTS IN YOUR OCCUPATION?NO CAFFEINE 1-2/DAY. ADVANCE DIRECTIVE ADVANCE DIRECTIVE DISCUSSED WITH PATIENT:YES ANCELMO BARNETT [phone] (SO) MARITAL STATUS: SINGLE, WITH PARTNER FOR TEN YEARS. 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 PRE PROCEDURE PHONE CALL 07/11/19 [phone] BV. HOSPITALIZATION/MAJOR DIAGNOSTIC PROCEDURE CHILDBIRTH SURGERIES SEIZURES WHEN YOUNGER REVIEW OF SYSTEMS REVIEWED BY: PROVIDER: LILIA FERRARA . CONSTITUTIONAL: ANY CHANGE IN YOUR MEDICAL CONDITION? NO . CHILLS NO . FEVER NO . INFECTION: DO YOU HAVE NEW INFECTIONS? NO . DO YOU HAVE HISTORY OF MRSA? NO . MUSCULOSKELETAL: ANY NEW PATTERNS OF PAIN OR NUMBNESS? YES INCRASED DOWN RIGHT , YES . GASTROENTEROLOGY: ANY NEW CHANGE IN BOWEL CONTROL? NO . GENITOURINARY: ANY NEW CHANGE IN BLADDER CONTROL? NO . IS THERE A CHANCE YOU COULD BE ? NO . HEMATOLOGY/LYMPH: DO YOU TAKE ANY BLOOD THINNERS? (FOR EXAMPLE- COUMADIN, PLAVIX, AGGRENOX, PLATEL, PRADAXA, OR XARELTO) NO . WHEN WAS YOUR LAST DOSE? DATE: TIME: . NEUROLOGY: HAVE YOU FALLEN IN THE PAST 12 MONTHS? NO . ANY NEW EXTREMITY NUMBNESS OR WEAKNESS? NO . CARDIOLOGY: DO YOU HAVE A PACEMAKER OR DEFIBRILLATOR? NO . RESPIRATORY: HAVE YOU BEEN SICK IN THE PAST WEEK? NO . FEVER NO . FLU LIKE SYMPTOMS? NO . COUGH NO . INTEGUMENTARY: DO YOU HAVE ANY RASHES OR OPEN SORES? NO . ALLERGIC/IMMUNO: ARE YOU ALLERGIC TO IV DYE? NO . ANY NEW ALLERGIES? NO . PSYCHIATRIC: DO YOU HAVE THOUGHTS OF HURTING YOURSELF OR SOMEONE ELSE? NO . ARE YOU ABUSED, NEGLECTED, OR IN AN UNSAFE ENVIRONMENT? NO . ENDOCRINOLOGY: ARE YOU DIABETIC? NO . OTHER: DO YOU NEED ANY PRESCRIPTIONS? NO . IF YES, PLEASE LIST: ____ . ANY NEW PROBLEMS WITH YOUR MEDICATIONS? NO . WHEN DID YOU LAST EAT? ____ . WHEN DID YOU LAST DRINK? ____ . WHAT DID YOU LAST DRINK? ____ . NAME OF PERSON DRIVING YOU HOME? ____ . DO YOU HAVE ANY OTHER QUESTIONS OR CONCERNS NO . VITAL SIGNS WT 226.6 LBS, HT 63.5 IN, BMI 39.51 INDEX, BP 136/89 MM HG, HR 99 /MIN, RR 18 /MIN, TEMP 97.1 F, OXYGEN SAT % 97%, NA INITIALS AW 1319. EXAMINATION GENERAL EXAMINATION: GENERAL ALERT,APPEARS UNCOMFORTABLE . PSYCH AFFECT NORMAL . LUNGS: LUNG SOUNDS ARE CLEAR . HEART: HEART RATE REGULAR . MUSCULOSKELETAL: MST 5/5 BILAT. LOWER EXTREMITIES . FOR BILAT. SIJ TENDERNESS RIGHT SIJ POSITIVE MAL TESTING -RIGHT. DIAGNOSTIC TESTS REVIEWEDMRI L/S [id number] . ASSESSMENTS SACROILIITIS - M46.1 (PRIMARY) TREATMENT SACROILIITIS START NORCO TABLET, 5-325 MG, 1 TABLET NEEDED, ORALLY, Q8H PRN MDD3, 30 DAYS, 45, REFILLS 0 NOTES: RIGHT SIJ, ISTOP REGISTRY REVIEWED AND DEMONSTRATES COMPLLIANCE. PROCEDURE CODES FA211 ESTABILISHED PATIENT [facility] CHARGE DISPOSITION & COMMUNICATION FOLLOW UP POST (REASON: RIGHT SIJ) ELECTRONICALLY SIGNED BY ALEM YOUSSEF ON 08/16/2019 AT 04:37 PM EST DISCLAIMER : THIS IS A VISIT SUMMARY EXTRACTED FROM THE [facility] CHART. IT IS NOT A COPY OF THE [facility] PROGRESS NOTE. MTDD
== END ==
LOC: M PAIN 13:15
PROVIDERS: ATTEND Nurse Practitioner Family
DX: M46.1 Sacroiliitis, not elsewhere classified (principal)

== ENCOUNTER → 2019-08-22 | Outpatient (CLI) | payer MEDICARE, MEDICAID ==
--- NOTE | 2019-08-22 15:01 | REP ---
Chest x-ray: Two views. History: Wheezing . Cough for 9 days. Comparison study: No comparison study . Findings: The lungs are well inflated and free of infiltrate. The pleural angles are sharp. The heart size is normal. Pulmonary vasculature is not increased. No significant bony abnormality is seen. Impression: Negative chest x-ray. Electronically Signed by Fernando Scott MD 08/22/2019 02:52 P
== END ==
LOC: M LRY 14:21
PROVIDERS: ATTEND Physician Assistant
DX: R06.2 Wheezing (principal)
CPT/HCPCS: 71046; 94640; 96372; G0463; J2930

== ENCOUNTER → 2019-08-29 | Outpatient (CLI) | payer MEDICARE, MEDICAID | LOC: M WUC 10:43 | PROVIDERS: ATTEND Nurse Practitioner | DX: G40.909 Epilepsy, unspecified, not intractable, without status epilepticus (principal) ==

== ENCOUNTER → 2019-09-07 | Outpatient (CLI) | payer MEDICARE, MEDICAID ==
[~2019-09-07] MED LIST changes: +BUPIVACAINE HCL 0.25% 30 ML VIAL As Ordered ONE; +ISOVUE-M 300 61% 15ML VIAL (Q9967) As Ordered ONE; +LIDOCAINE 1% SDV INJ 30 ML VIAL As Ordered ONE; +TRIAMCINOLONE ACETONIDE SUSP 40 MG/ML VIAL (J3301) As Ordered ONE; +diazePAM 5 MG TAB As Ordered ONE
--- NOTE | 2019-09-07 18:11 | REP ---
FLUOROSCOPIC GUIDANCE FOR RIGHT SI JOINT INJECTION: 09/07/2019 Clinical history: Low back pain. Findings: Single image from C-arm fluoroscopy provided to Dr. vanessa Mcfarland of the pain clinic is reviewed. Needle adjacent to the lower one third of the left SI joint is seen with contrast adjacent to it. Fluoroscopy time: 7 seconds. Electronically Signed by William Severino MD 09/07/2019 06:02 P
--- NOTE | 2019-09-16 03:08 | ECWPNPC ---
PATIENT NAME: TIFFANIE HUFF : 1980 GENDER: FEMALE VISIT DATE: 09/07/2019 DISCHARGE DATE: 09/07/19 1131 VISIT LOCKED DATE TIME: PHYSICIAN: YARA LIZ MD RESOURCE: YARA LIZ MD REASON FOR APPOINTMENT 1. RIGHT SIJ HISTORY OF PRESENT ILLNESS HISTORY OF PRESENT ILLNESS: PAIN THE PATIENT DESCRIBES THE PAIN... FALL RISK SCREENING: SCREENING :NO FALLS REPORTED IN THE LAST YEAR CURRENT MEDICATIONS TAKING GABAPENTIN 300 MG CAPSULE 1 CAPSULE ORALLY ONCE A DAY, NOTES: 09/06/20191999 TAKING CYMBALTA 30 MG CAPSULE DELAYED RELEASE PARTICLES 2 CAPS ORALLY ONCE A DAY, NOTES: 09/06/20191999 TAKING TEGRETOL 200 MG TABLET 3 TABLET ORALLY TWICE A DAY, NOTES: 09/07/2019 0700 TAKING ZYRTEC 1 TAB ORAL DAILY, NOTES: 09/06/20191999 TAKING DEDE 1 TAB ORALLY 180 MG DAILY, NOTES: 09/06/20191999 TAKING LEVOCETIRIZINE DIHYDROCHLORIDE 5 MG TABLET 1 TABLET IN THE EVENING ORALLY ONCE A DAY, NOTES: 09/06/20191999 TAKING DYMISTA NASAL SPRAY AZELASTINE HYRDOCHLORIDE 137MCG & FLUTICASONE PROPIONATE 50MCG( SOLUTION ONE SPRAY PER NOSTRIL NASALLLY TWICE DAILY, NOTES: 09/06/20191999 TAKING DEXILANT 60 MG CAPSULE DELAYED RELEASE 1 CAPSULE ORALLY ONCE A DAY, NOTES: 09/06/20191999 TAKING LINZESS 290 MCG CAPSULE ONE P.O. DAILY, NOTES: 09/06/20191999 TAKING VIMPAT 100 MG TABLET 4 TABS ORALLY TWICE A DAY, NOTES: 09/07/2019 0700 TAKING BOTOX 200 UNIT SOLUTION RECONSTITUTED INJECTION EVERY 3 MONTHS, NOTES: 2 MONTHS AGO TAKING AIMOVIG 70 MG/ML SOLUTION AUTO-INJECTOR DIRECTED SUBCUTANEOUS , NOTES: 08/26/2019 NOT-TAKING CANDESARTAN CILEXETIL 32 MG TABLET 1 TABLET ORALLY ONCE A DAY, NOTES: 07/19/191999 NOT-TAKING LEVOTHROID 25 MCG TABLET 1 TABLET ON AN EMPTY STOMACH IN THE MORNING P.O. ONCE A DAY NOT-TAKING FEXOFENADINE HCL 180 MG TABLET 1 TABLET P.O. ONCE A DAY NOT-TAKING FLUTICASONE FUROATE 27.5 MCG/SPRAY SUSPENSION 2 PUFFS NASALLY ONCE A DAY NOT-TAKING SUDAFED 30 MG TABLET 1 TABLET NEEDED ORALLY EVERY 6 HRS MEDICATION LIST REVIEWED AND RECONCILED WITH THE PATIENT PAST MEDICAL HISTORY MIGRAINES WITH AURA EPILEPSY ALLERGIES-SEASONAL ASTHMA MOBID OBESITY DEPRESSION ANXIETY CHRONIC PAIN FIBROMYALGIA CHRONIC CONSTIPATION ALLERGIES RASPBERRY: DYSPNEA - ALLERGY CIPRO: ANAPHYLAXIS - ALLERGY NITROFURANTOIN: ANAPHYLAXIS - ALLERGY CEFOTETAN DISODIUM: HIVES - ALLERGY ERYTHROMYCIN: HIVES - ALLERGY TREE NUTS: ANAPHYLAXIS - ALLERGY CAT & DOG: SNEEZING - ALLERGY MOLD: SNEEZING - ALLERGY CEFTIN: HIVES - ALLERGY FENTANYL: CHEST PAIN - ALLERGY CODEINE SULFATE: COULD INCREASE SEIZURE ACTIVITY - CONTRAINDICATION TRAMADOL HCL: COULD INCREASE SEIZURE ACTIVITY - CONTRAINDICATION TOPAMAX: SUICIDAL - SIDE EFFECTS SURGICAL HISTORY CHOLECYSTECTOMY 04/2012 LIGAMENT REPAIR ON LEFT ANKLE AGE 18 LIGAMENT ON LEFT WRIST AGE 18 LIGAMENT REPAIR ON RIGHT SHOULDER AGE 18 GASTRIC BYPASS 04/26/19 FAMILY HISTORY FATHER: 67 YRS, LUNG CANCER, SEPSIS MOTHER: ALIVE 58 YRS, CERVICAL CANCER SIBLINGS: ALIVE MATERNAL GRAND MOTHER: , COLON CANCER PATERNAL AUNT: LATE 30'S YRS, BREAST CANCER, DIAGNOSED AT LATE 30 2 SISTER(S) - HEALTHY. 2DAUGHTER(S) - HEALTHY. COLON CA- M.GRANDMOTHERBREAST CANCER- PATERNAL AUNTS X 2FATHER- ASTHMA, COPDSIBLINGS- HEALTHY. SOCIAL HISTORY GENERAL: TOBACCO USE ARE YOU A:: NEVER SMOKER. OTHERS AT HOME: CHILDREN. HOUSING: OWNS HOME. EDUCATION LEVEL OF EDUCATION:COLLEGE DIET: REGULAR- S/P GASTRIC BYPASS 04/26/19. LANGUAGE LANGUAGES SPOKEN:BARBADIAN DOMESTIC VIOLENCE NONE. NEW PATIENT PAIN DIARY PATIENT DESCRIBES PAIN :SHOOTING FROM 0-10, WHAT LEVEL IS YOUR PAIN TODAY?7 PRECIPITATING FACTORS LYING DOWN MAKES PAIN WORSE ALLEVIATING FACTORS LIDOCAINE INJECTIONS DID HELP HER BACK, BUT THEY WERE NOT USED ON ANY OTHER BODY PARTS, HEAT AND ICE DO HELP, STATES SHE CONTINUES TO DO PT- STATES IT DOES NOT HELP BUT ALSO DOES NOT MAKE PAIN WORSE, GABAPENTIN DOES NOT HELP- NEUROLOGIST DOES NOT WANT DOSE INCREASED DUE TO SEIZURE DISORDER IMPACT ON FUNCTION NOT ABLE TO DO NORMAL ACTIVITES, DOES NOT SLEEP WELL IS THERE A CHANCE YOU COULD BE ?NO HAVE YOU BEEN SICK IN THE LAST WEEK (COLD, COUGH, FEVER, FLU, ETC)NO DO YOU TAKE ANY BLOOD THINNERS?NO STOPPED LOVENOX 05/17/19 WAS ORDERED POST OP GASTRIC BYPASS LAST DOSE 05/17/19 DO YOU HAVE ANY RASHES OR OPEN SORES?NO ANY CHANGE IN BOWEL OR BLADDER CONTROL?NO ARE YOU ALLERGIC TO SHELLFISH OR IV DYE?NO ARE YOU DIABETIC?NO DO YOU HAVE A PACEMAKER OR DEFIBRILLATOR?NO ANY NEW PROBLEMS WITH MEDICINES OR NEW ALLERGIESNO ANY NEW PATTERNS OF PAIN OR NUMBNESS?NO HAVE YOU FALLEN IN THE LAST 6 MONTHS?NO DO YOU USE ANY TYPE OF TOBACCO (SMOKE, SMOKELESS, CHEW, ETC.)NO ARE YOU ABUSED, NEGLECTED, OR IN AN UNSAFE ENVIRONMENT?NO DO YOU HAVE THOUGHTS OF HURTING YOURSELF OR SOMEONE ELSE?NO INTENSITY SCALE REVIEWEDNUMBER RECREATIONAL DRUG USE DENIES. EXERCISE: USES ELLIPTICAL, TREADMILL, AND BIKE. LEARNING BARRIERS / SPECIAL NEEDS BARRIERS TO LEARNING?YES COMMENTSDOCUMENTED IN NOTES SECTION> LEARNING DISABILTY HEARING IMPAIRED?NO VISION IMPAIRED?YES GLASSES COGNITIVELY IMPAIRED?NO READINESS TO LEARN?YES LEARNING PREFERENCES?NO LEARNING CAPABILITIES PRESENT?YES EMOTIONAL BARRIERS?NO SPECIAL DEVICES?NO BRANCH SALES AND SERVICE REPRESENTATIVE NEEDED?NO PAIN CLINIC PFS, CLERGY, PUBLIC HEALTH REFERRALS PFS REFERRAL NEEDED?NO CLERGY REFERRAL NEEDED?NO PUBLIC HEALTH REFERRAL NEEDED?NO WAS THE PROVIDER NOTIFIED OF ANY PERTINENT INFO?YES HAS THE PATIENT BEEN EDUCATED REGARDING HIS/HER PLAN OF CARE?YES HAS THE PATIENT BEEN EDUCATED REGARDING PAIN, THE RISK FOR PAIN, THE IMPORTANCE OF EFFECTIVE PAIN MANAGEMENT, AND THE PAIN ASSESSMENT PROCESS?YES LATEX QUESTIONNAIRE LATEX ALLERGY : HAVE YOU EVER DEVELOPED ANY TYPE OF REACTION AFTER HANDLING LATEX PRODUCTS SUCH RUBBER GLOVES, CONDOMS, DIAPHRAGMS, BALLOONS, SOCKS, OR UNDERWEAR?NO LATEX ALLERGY : HAVE YOU EVER DEVELOPED ANY TYPE OF REACTION DURING OR AFTER DENTAL APPOINTMENT, VAGINAL/RECTAL EXAMINATION, SURGICAL PROCEDURE, OR ANY OTHER EXPOSURE?NO DATE ASKED : 05/19/2019 LATEX RISK : HAVE YOU EVER HAD ANY DIFFICULTY BREATHING OR HIVES AFTER EATING OR HANDLING ANY FRUITS, OR VEGETABLES; SUCH KIWI, BANANAS, STONE FRUITS, OR CHESTNUTSNO LATEX RISK : DO YOU HAVE A PREVIOUS PERSONAL HISTORY OF MORE THAN NINE SURGERIES, SPINA BIFIDA, OR REPEATED CATHERIZATIONS? NO LATEX RISK : ARE YOU FREQUENTLY EXPOSED TO LATEX PRODUCTS IN YOUR OCCUPATION?NO CAFFEINE 1-2/DAY. ADVANCE DIRECTIVE ADVANCE DIRECTIVE DISCUSSED WITH PATIENT:YES ANCELMO MATHIASDOCK [phone] (SO) MARITAL STATUS: SINGLE, WITH PARTNER FOR TEN YEARS. 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 PRE PROCEDURE PHONE CALL 07/11/19 1035 BVPRE-PROCEDURE CALL DONE 09/06/19 EMREVIEWED WITH PATIENT 09/07/2019 0913. HOSPITALIZATION/MAJOR DIAGNOSTIC PROCEDURE CHILDBIRTH SURGERIES SEIZURES WHEN YOUNGER REVIEW OF SYSTEMS REVIEWED BY: PROVIDER: . CONSTITUTIONAL: ANY CHANGE IN YOUR MEDICAL CONDITION? NO . CHILLS NO . FEVER NO . INFECTION: DO YOU HAVE NEW INFECTIONS? NO . DO YOU HAVE HISTORY OF MRSA? NO . MUSCULOSKELETAL: ANY NEW PATTERNS OF PAIN OR NUMBNESS? NO . GASTROENTEROLOGY: ANY NEW CHANGE IN BOWEL CONTROL? NO . GENITOURINARY: ANY NEW CHANGE IN BLADDER CONTROL? NO . IS THERE A CHANCE YOU COULD BE ? NO . HEMATOLOGY/LYMPH: DO YOU TAKE ANY BLOOD THINNERS? (FOR EXAMPLE- COUMADIN, PLAVIX, AGGRENOX, PLATEL, PRADAXA, OR XARELTO) NO . WHEN WAS YOUR LAST DOSE? DATE: TIME: . NEUROLOGY: HAVE YOU FALLEN IN THE PAST 12 MONTHS? NO . ANY NEW EXTREMITY NUMBNESS OR WEAKNESS? NO . CARDIOLOGY: DO YOU HAVE A PACEMAKER OR DEFIBRILLATOR? NO . RESPIRATORY: HAVE YOU BEEN SICK IN THE PAST WEEK? NO . FEVER NO . FLU LIKE SYMPTOMS? NO . COUGH NO . INTEGUMENTARY: DO YOU HAVE ANY RASHES OR OPEN SORES? NO . ALLERGIC/IMMUNO: ARE YOU ALLERGIC TO IV DYE? NO . ANY NEW ALLERGIES? NO . PSYCHIATRIC: DO YOU HAVE THOUGHTS OF HURTING YOURSELF OR SOMEONE ELSE? NO . ARE YOU ABUSED, NEGLECTED, OR IN AN UNSAFE ENVIRONMENT? NO . ENDOCRINOLOGY: ARE YOU DIABETIC? NO . OTHER: DO YOU NEED ANY PRESCRIPTIONS? NO . IF YES, PLEASE LIST: ____ . ANY NEW PROBLEMS WITH YOUR MEDICATIONS? NO . WHEN DID YOU LAST EAT? 09/06/20191999 . WHEN DID YOU LAST DRINK? 09/07/2019 0700 . WHAT DID YOU LAST DRINK? WATER . NAME OF PERSON DRIVING YOU HOME? LM YADAV . DO YOU HAVE ANY OTHER QUESTIONS OR CONCERNS NO . VITAL SIGNS WT 216 LBS, HT 63.5 IN, BMI 37.66 INDEX, BP 122/80 MM HG, HR 93 /MIN, RR 18 /MIN, TEMP 97.5 F, OXYGEN SAT % 99%, SAFE IN ENV? (Y/N) YES, REVIEWED BY: PRECIOSU. ASSESSMENTS SACROILIITIS - M46.1 (PRIMARY) TREATMENT SACROILIITIS [facility] FLUORO GUIDANCE (PAIN)[id number] PROCEDURES PN SI PRE PROCEDURE DIAGNOSIS SACROILIITIS, SACROILIAC JOINT DYSFUNCTION POST PROCEDURE DIAGNOSIS SACROILIITIS, SACROILIAC JOINT DYSFUNCTION PROCEDURE RIGHT SACROILIAC JOINT BLOCK SURGEON DR. YARA LIZ CELL BIOLOGY SCIENTIST NONE ANESTHESIA LOCAL PRE PROCEDURE NOTE PATIENT WITH HISTORY OF CHRONIC LOW BACK PAIN. I EVALUATED THE PATIENT AND REVIEWED THE CHART. I WENT OVER THE RISKS, ALTERNATIVES, AND BENEFITS ASSOCIATED WITH THIS PROCEDURE. THE PATIENT WOULD LIKE TO PROCEED AND GAVE CONSENT TO PERFORM THE PROCEDURE. THE PATIENT DENIES UNEXPLAINABLE WEIGHT LOSS, FEVER, CHILLS, OR NEW CHANGES IN URINARY OR BOWEL CONTROL DESCRIPTION OF PROCEDURE THE PATIENT WAS BROUGHT TO THE PROCEDURE ROOM AND PLACED IN THE PRONE POSITION. THE LUMBOSACRAL AREA WAS CLEANED WITH CHLORAPREP SOLUTION AND DRAPED ASEPTICALLY. THE PROCEDURE WAS DONE UNDER STERILE CONDITIONS. I CHECKED LATERALITY AND THE LEVEL WHERE THE PROCEDURE WAS GOING TO BE PERFORMED WITH THE PATIENT AND THE SUPPORTING STAFF AT THE MOMENT OF THE TIME OUT IN THE PROCEDURE ROOM. UNDER FLUOROSCOPIC GUIDANCE, TARGET POINT WAS SELECTED AT THE LOWER BORDER OF THE RIGHT SACROILIAC JOINT. TARGET POINT WAS SELECTED AFTER MEDIAL ROTATION AND TILT OF THE MAGNIFIER OF THE C-ARM. LIDOCAINE WAS USED TO NUMB THE SKIN AND SUBCUTANEOUS TISSUE BELOW IT. A SPINAL NEEDLE, 22-GAUGE, WAS ADVANCED UNDER FLUOROSCOPIC GUIDANCE AND FOLLOWING PATIENT FEEDBACK UNTIL THE TARGET AREA WAS TOUCHED. THE POSITION OF THE NEEDLE WAS VERIFIED WITH AP AND LATERAL VIEWS. AFTER PROPER POSITION OF THE NEEDLE WAS ACHIEVED, ISOVUE M DYE 30%, 0.25 ML, WAS INJECTED SHOWING SPREAD OF THE DYE. THEN, A SOLUTION OF 20 MG OF KENALOG WAS INJECTED IN RIGHT JOINT WITH 3 ML OF BUPIVACAINE 0.125%. THERE WAS NO EVIDENCE OF BLOOD, PARESTHESIA OR CEREBROSPINAL FLUID DURING THE PROCEDURE. THE PATIENT WAS SENT TO THE RECOVERY ROOM. THE PATIENT WAS MOVING THE EXTREMITIES AND DOING WELL. THERE WAS NO COMPLICATION DURING THE PROCEDURE. FLUOROSCOPY TIME WAS 7 SECONDS POST PROCEDURE NOTE THE PATIENT WILL BE SEEN IN A FOLLOW UP IN THE NEXT FEW WEEKS. I AM LOOKING FOR LONG LASTING PAIN RELIEF WITH THIS INJECTION. INSTRUCTIONS WERE GIVEN, QUESTIONS WERE ANSWERED, AND THE PATIENT EXPRESSED UNDERSTANDING AND AGREED WITH THE PLAN. I, JAZMINE ANDINO, DOCUMENTED THE ABOVE INFORMATION ACTING A SCRIBE FOR DR. LIZ. I HAVE REVIEWED THE ABOVE DOCUMENT, WRITTEN BY JAZMINE ANDINO SCRIBJessica AND I VERIFY THAT IT IS ACCURATE. PROCEDURE CODES 06972 INJECT SACROILIAC JOINT, MODIFIERS: RT 6045F RADXPS IN END [id number] PXD DISPOSITION & COMMUNICATION FOLLOW UP 3 WEEKS ELECTRONICALLY SIGNED BY YARA LIZ MD, MD ON 09/15/2019 AT 05:39 PM EST DISCLAIMER : THIS IS A VISIT SUMMARY EXTRACTED FROM THE [employer] CHART. IT IS NOT A COPY OF THE [employer] PROGRESS NOTE. MTDAntonio
== END ==
LOC: M PAIN 09:00
PROVIDERS: ATTEND Anesthesiology
DX: M46.1 Sacroiliitis, not elsewhere classified (principal)
CPT/HCPCS: G0260; J3301; Q9967

== ENCOUNTER → 2019-09-22 | Outpatient (CLI) | payer MEDICARE, MEDICAID ==
[~2019-09-22] MED LIST changes: -BUPIVACAINE HCL 0.25% 30 ML VIAL As Ordered ONE; -ISOVUE-M 300 61% 15ML VIAL (Q9967) As Ordered ONE; -LIDOCAINE 1% SDV INJ 30 ML VIAL As Ordered ONE; -TRIAMCINOLONE ACETONIDE SUSP 40 MG/ML VIAL (J3301) As Ordered ONE; -diazePAM 5 MG TAB As Ordered ONE
--- NOTE | 2019-10-12 06:24 | ECWPNPC ---
PATIENT NAME: TIFFANIE HUFF : 1980 GENDER: FEMALE VISIT DATE: 09/22/2019 DISCHARGE DATE: 09/22/19 1018 VISIT LOCKED DATE TIME: PHYSICIAN: LILIA HERNANDEZ RESOURCE: LILIA HERNANDEZ REASON FOR APPOINTMENT 1. POST SIJ HISTORY OF PRESENT ILLNESS HISTORY OF PRESENT ILLNESS: HERE FOR POST PROCEDURE FOLLOW-UP. HAD RIGHT SIJ ON 09/07/2019. REPORTS MARKED REDUCTION IN PAIN THAT CONTINUES TODAY. RATING PAIN LEVEL A 1/10 VAS. PAIN IS LOCATED ACROSS HER LOWER BACK AND IN TO RIGHT BUTTOCK. HAS NOT NEEDED PAIN MEDICATION SINCE PROCEDURE. PAIN THE PATIENT DESCRIBES THE PAIN... FALL RISK SCREENING: SCREENING :NO FALLS REPORTED IN THE LAST YEAR CURRENT MEDICATIONS TAKING GABAPENTIN 300 MG CAPSULE 1 CAPSULE ORALLY ONCE A DAY TAKING CYMBALTA 30 MG CAPSULE DELAYED RELEASE PARTICLES 2 CAPS ORALLY ONCE A DAY TAKING TEGRETOL 200 MG TABLET 3 TABLET ORALLY TWICE A DAY TAKING ZYRTEC 1 TAB ORAL DAILY TAKING DEDE 1 TAB ORALLY 180 MG DAILY TAKING LEVOCETIRIZINE DIHYDROCHLORIDE 5 MG TABLET 1 TABLET IN THE EVENING ORALLY ONCE A DAY TAKING DYMISTA NASAL SPRAY AZELASTINE HYRDOCHLORIDE 137MCG & FLUTICASONE PROPIONATE 50MCG( SOLUTION ONE SPRAY PER NOSTRIL NASALLLY TWICE DAILY TAKING DEXILANT 60 MG CAPSULE DELAYED RELEASE 1 CAPSULE ORALLY ONCE A DAY TAKING LINZESS 290 MCG CAPSULE ONE P.O. DAILY TAKING VIMPAT 100 MG TABLET 4 TABS ORALLY TWICE A DAY TAKING BOTOX 200 UNIT SOLUTION RECONSTITUTED INJECTION EVERY 3 MONTHS TAKING AIMOVIG 70 MG/ML SOLUTION AUTO-INJECTOR DIRECTED SUBCUTANEOUS TAKING HYDROCODONE-ACETAMINOPHEN 5-325 MG TABLET 1 TABLET NEEDED ORALLY EVERY 8 HRS NOT-TAKING CANDESARTAN CILEXETIL 32 MG TABLET 1 TABLET ORALLY ONCE A DAY, NOTES: 07/19/191999 NOT-TAKING LEVOTHROID 25 MCG TABLET 1 TABLET ON AN EMPTY STOMACH IN THE MORNING P.O. ONCE A DAY NOT-TAKING FEXOFENADINE HCL 180 MG TABLET 1 TABLET P.O. ONCE A DAY NOT-TAKING FLUTICASONE FUROATE 27.5 MCG/SPRAY SUSPENSION 2 PUFFS NASALLY ONCE A DAY NOT-TAKING SUDAFED 30 MG TABLET 1 TABLET NEEDED ORALLY EVERY 6 HRS MEDICATION LIST REVIEWED AND RECONCILED WITH THE PATIENT PAST MEDICAL HISTORY MIGRAINES WITH AURA EPILEPSY ALLERGIES-SEASONAL ASTHMA MOBID OBESITY DEPRESSION ANXIETY CHRONIC PAIN FIBROMYALGIA CHRONIC CONSTIPATION ALLERGIES RASPBERRY: DYSPNEA - ALLERGY CIPRO: ANAPHYLAXIS - ALLERGY NITROFURANTOIN: ANAPHYLAXIS - ALLERGY CEFOTETAN DISODIUM: HIVES - ALLERGY ERYTHROMYCIN: HIVES - ALLERGY TREE NUTS: ANAPHYLAXIS - ALLERGY CAT & DOG: SNEEZING - ALLERGY MOLD: SNEEZING - ALLERGY CEFTIN: HIVES - ALLERGY FENTANYL: CHEST PAIN - ALLERGY CODEINE SULFATE: COULD INCREASE SEIZURE ACTIVITY - CONTRAINDICATION TRAMADOL HCL: COULD INCREASE SEIZURE ACTIVITY - CONTRAINDICATION TOPAMAX: SUICIDAL - SIDE EFFECTS SURGICAL HISTORY CHOLECYSTECTOMY 04/2012 LIGAMENT REPAIR ON LEFT ANKLE AGE 18 LIGAMENT ON LEFT WRIST AGE 18 LIGAMENT REPAIR ON RIGHT SHOULDER AGE 18 GASTRIC BYPASS 04/26/19 FAMILY HISTORY FATHER: 67 YRS, LUNG CANCER, SEPSIS MOTHER: ALIVE 58 YRS, CERVICAL CANCER SIBLINGS: ALIVE MATERNAL GRAND MOTHER: , COLON CANCER PATERNAL AUNT: LATE 30'S YRS, BREAST CANCER, DIAGNOSED AT LATE 30 2 SISTER(S) - HEALTHY. 2DAUGHTER(S) - HEALTHY. COLON CA- M.GRANDMOTHERBREAST CANCER- PATERNAL AUNTS X 2FATHER- ASTHMA, COPDSIBLINGS- HEALTHY. SOCIAL HISTORY GENERAL: TOBACCO USE ARE YOU A:: NEVER SMOKER. OTHERS AT HOME: CHILDREN. HOUSING: OWNS HOME. EDUCATION LEVEL OF EDUCATION:COLLEGE DIET: REGULAR- S/P GASTRIC BYPASS 04/26/19. LANGUAGE LANGUAGES SPOKEN:DANISH DOMESTIC VIOLENCE NONE. NEW PATIENT PAIN DIARY PATIENT DESCRIBES PAIN :SHOOTING FROM 0-10, WHAT LEVEL IS YOUR PAIN TODAY?7 PRECIPITATING FACTORS LYING DOWN MAKES PAIN WORSE ALLEVIATING FACTORS LIDOCAINE INJECTIONS DID HELP HER BACK, BUT THEY WERE NOT USED ON ANY OTHER BODY PARTS, HEAT AND ICE DO HELP, STATES SHE CONTINUES TO DO PT- STATES IT DOES NOT HELP BUT ALSO DOES NOT MAKE PAIN WORSE, GABAPENTIN DOES NOT HELP- NEUROLOGIST DOES NOT WANT DOSE INCREASED DUE TO SEIZURE DISORDER IMPACT ON FUNCTION NOT ABLE TO DO NORMAL ACTIVITES, DOES NOT SLEEP WELL IS THERE A CHANCE YOU COULD BE ?NO HAVE YOU BEEN SICK IN THE LAST WEEK (COLD, COUGH, FEVER, FLU, ETC)NO DO YOU TAKE ANY BLOOD THINNERS?NO STOPPED LOVENOX 05/17/19 WAS ORDERED POST OP GASTRIC BYPASS LAST DOSE 05/17/19 DO YOU HAVE ANY RASHES OR OPEN SORES?NO ANY CHANGE IN BOWEL OR BLADDER CONTROL?NO ARE YOU ALLERGIC TO SHELLFISH OR IV DYE?NO ARE YOU DIABETIC?NO DO YOU HAVE A PACEMAKER OR DEFIBRILLATOR?NO ANY NEW PROBLEMS WITH MEDICINES OR NEW ALLERGIESNO ANY NEW PATTERNS OF PAIN OR NUMBNESS?NO HAVE YOU FALLEN IN THE LAST 6 MONTHS?NO DO YOU USE ANY TYPE OF TOBACCO (SMOKE, SMOKELESS, CHEW, ETC.)NO ARE YOU ABUSED, NEGLECTED, OR IN AN UNSAFE ENVIRONMENT?NO DO YOU HAVE THOUGHTS OF HURTING YOURSELF OR SOMEONE ELSE?NO INTENSITY SCALE REVIEWEDNUMBER RECREATIONAL DRUG USE DENIES. EXERCISE: USES ELLIPTICAL, TREADMILL, AND BIKE. LEARNING BARRIERS / SPECIAL NEEDS BARRIERS TO LEARNING?YES COMMENTSDOCUMENTED IN NOTES SECTION> LEARNING DISABILTY HEARING IMPAIRED?NO VISION IMPAIRED?YES GLASSES COGNITIVELY IMPAIRED?NO READINESS TO LEARN?YES LEARNING PREFERENCES?NO LEARNING CAPABILITIES PRESENT?YES EMOTIONAL BARRIERS?NO SPECIAL DEVICES?NO MANAGER OF INTERNAL NEEDED?NO PAIN CLINIC PFS, CLERGY, PUBLIC HEALTH REFERRALS PFS REFERRAL NEEDED?NO CLERGY REFERRAL NEEDED?NO PUBLIC HEALTH REFERRAL NEEDED?NO WAS THE PROVIDER NOTIFIED OF ANY PERTINENT INFO?YES HAS THE PATIENT BEEN EDUCATED REGARDING HIS/HER PLAN OF CARE?YES HAS THE PATIENT BEEN EDUCATED REGARDING PAIN, THE RISK FOR PAIN, THE IMPORTANCE OF EFFECTIVE PAIN MANAGEMENT, AND THE PAIN ASSESSMENT PROCESS?YES LATEX QUESTIONNAIRE LATEX ALLERGY : HAVE YOU EVER DEVELOPED ANY TYPE OF REACTION AFTER HANDLING LATEX PRODUCTS SUCH RUBBER GLOVES, CONDOMS, DIAPHRAGMS, BALLOONS, SOCKS, OR UNDERWEAR?NO LATEX ALLERGY : HAVE YOU EVER DEVELOPED ANY TYPE OF REACTION DURING OR AFTER DENTAL APPOINTMENT, VAGINAL/RECTAL EXAMINATION, SURGICAL PROCEDURE, OR ANY OTHER EXPOSURE?NO LATEX RISK : HAVE YOU EVER HAD ANY DIFFICULTY BREATHING OR HIVES AFTER EATING OR HANDLING ANY FRUITS, OR VEGETABLES; SUCH KIWI, BANANAS, STONE FRUITS, OR CHESTNUTSNO LATEX RISK : DO YOU HAVE A PREVIOUS PERSONAL HISTORY OF MORE THAN NINE SURGERIES, SPINA BIFIDA, OR REPEATED CATHERIZATIONS? NO LATEX RISK : ARE YOU FREQUENTLY EXPOSED TO LATEX PRODUCTS IN YOUR OCCUPATION?NO DATE ASKED : 05/19/2019 [place] 1-2/DAY. ADVANCE DIRECTIVE ADVANCE DIRECTIVE DISCUSSED WITH PATIENT:YES ANCELMO BARNETT [phone] (SO) MARITAL STATUS: SINGLE, WITH PARTNER FOR TEN YEARS. 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 PRE PROCEDURE PHONE CALL 07/11/19 1035 BVPRE-PROCEDURE CALL DONE 09/06/19 EMREVIEWED WITH PATIENT 09/07/2019 0913REVIEWED WITH PATIENT 09/22/2019 0937 JS. HOSPITALIZATION/MAJOR DIAGNOSTIC PROCEDURE CHILDBIRTH SURGERIES SEIZURES WHEN YOUNGER REVIEW OF SYSTEMS REVIEWED BY: PROVIDER: LILIA FERRARA . CONSTITUTIONAL: ANY CHANGE IN YOUR MEDICAL CONDITION? NO . CHILLS NO . FEVER NO . INFECTION: DO YOU HAVE NEW INFECTIONS? NO . DO YOU HAVE HISTORY OF MRSA? NO . MUSCULOSKELETAL: ANY NEW PATTERNS OF PAIN OR NUMBNESS? NO . GASTROENTEROLOGY: ANY NEW CHANGE IN BOWEL CONTROL? NO . GENITOURINARY: ANY NEW CHANGE IN BLADDER CONTROL? NO . IS THERE A CHANCE YOU COULD BE ? NO . HEMATOLOGY/LYMPH: DO YOU TAKE ANY BLOOD THINNERS? (FOR EXAMPLE- COUMADIN, PLAVIX, AGGRENOX, PLATEL, PRADAXA, OR XARELTO) NO . WHEN WAS YOUR LAST DOSE? DATE: TIME: . NEUROLOGY: HAVE YOU FALLEN IN THE PAST 12 MONTHS? NO . ANY NEW EXTREMITY NUMBNESS OR WEAKNESS? NO . CARDIOLOGY: DO YOU HAVE A PACEMAKER OR DEFIBRILLATOR? NO . RESPIRATORY: HAVE YOU BEEN SICK IN THE PAST WEEK? NO . FEVER NO . FLU LIKE SYMPTOMS? NO . COUGH NO . INTEGUMENTARY: DO YOU HAVE ANY RASHES OR OPEN SORES? NO . ALLERGIC/IMMUNO: ARE YOU ALLERGIC TO IV DYE? NO . ANY NEW ALLERGIES? NO . PSYCHIATRIC: DO YOU HAVE THOUGHTS OF HURTING YOURSELF OR SOMEONE ELSE? NO . ARE YOU ABUSED, NEGLECTED, OR IN AN UNSAFE ENVIRONMENT? NO . ENDOCRINOLOGY: ARE YOU DIABETIC? NO . OTHER: DO YOU NEED ANY PRESCRIPTIONS? NO . IF YES, PLEASE LIST: ____ . ANY NEW PROBLEMS WITH YOUR MEDICATIONS? NO . WHEN DID YOU LAST EAT? ____ . WHEN DID YOU LAST DRINK? ____ . WHAT DID YOU LAST DRINK? ____ . NAME OF PERSON DRIVING YOU HOME? ____ . DO YOU HAVE ANY OTHER QUESTIONS OR CONCERNS NO . VITAL SIGNS WT 211.4 LBS, HT 63.5 IN, BMI 36.86 INDEX, BP 123/85 MM HG, HR 79 /MIN, RR 18 /MIN, TEMP 97.4 F, OXYGEN SAT % 98%, SAFE IN ENV? (Y/N) YES, NA INITIALS AW 0932, REVIEWED BY: SYL. EXAMINATION GENERAL EXAMINATION: GENERALAWAKE,ALERT ,PLEASANT . PSYCHAFFECT NORMAL . LUNGS:LUNG GONZALEZ ARE CLEAR TO AUSCULTATION BILATERALLY. GOOD MOVEMENT OF AIR . HEART:S1, S2 IN A REGULAR RATE AND RHYTHM. NO SIGNIFICANT MURMURS, RUBS OR GALLOPS NOTED . ASSESSMENTS SACROILIITIS - M46.1 (PRIMARY) TREATMENT SACROILIITIS NOTES: PATIENT WAS ADVISED TO START A WALKING PROGRAM TO STRENGTHEN LUMBAR PARASPINAL MUSCLES AND IMPROVE MOBILITY. THEY WERE ADVISED THAT THIS WILL IMPROVE WEIGHT LOSS AND ALSO DEPRESSION/FIBROMYALGIA SYMPTOMS. ADVISED TO WALK 10 MINUTES EVERY OTHER DAY ON A FLAT SURFACE. EMPHASIZED THE IMPORTANCE OF DOING THIS CONSISTANTLY AND NOT SPORATICALLY TO AVOID INJURY. PROCEDURE CODES FA211 ESTABILISHED PATIENT [facility] CHARGE DISPOSITION & COMMUNICATION FOLLOW UP 2 MONTHS ELECTRONICALLY SIGNED BY ALEM YOUSSEF ON 10/11/2019 AT 02:01 PM EST DISCLAIMER : THIS IS A VISIT SUMMARY EXTRACTED FROM THE [employer] CHART. IT IS NOT A COPY OF THE [employer] PROGRESS NOTE. CHIP
== END ==
LOC: M PAIN 09:30
PROVIDERS: ATTEND Nurse Practitioner Family
DX: M46.1 Sacroiliitis, not elsewhere classified (principal); G43.109 Migraine with aura, not intractable, without status migrainosus; G40.909 Epilepsy, unspecified, not intractable, without status epilepticus; J45.909 Unspecified asthma, uncomplicated; Z86.59 Personal history of other mental and behavioral disorders; M79.7 Fibromyalgia; Z98.84 Bariatric surgery status; Z88.1 Allergy status to other antibiotic agents; Z88.5 Allergy status to narcotic agent; Z88.8 Allergy status to other drugs, medicaments and biological substances; Z91.018 Allergy to other foods; Z79.899 Other long term (current) drug therapy

== ENCOUNTER → 2019-09-27 | Outpatient (CLI) | payer MEDICARE, MEDICAID | LOC: M WUC 09:13 | PROVIDERS: ATTEND Nurse Practitioner | DX: G40.909 Epilepsy, unspecified, not intractable, without status epilepticus (principal); K91.2 Postsurgical malabsorption, not elsewhere classified; E55.9 Vitamin D deficiency, unspecified; Z98.84 Bariatric surgery status ==

== ENCOUNTER → 2019-09-27 | Outpatient (CLI) | payer MEDICARE, MEDICAID ==
[2019-09-27 13:30] LABS: BASO % 0.4 % (0.0-1.0); EOS % 0.8 % (0.0-3.0); HEMATOCRIT 41.7 % (36.0-47.0); HEMOGLOBIN 13.9 g/dl (12.0-15.5); LYMPH # 1.3 10^3/uL (1.5-5.0); LYMPH % 26.6 % (24.0-44.0); MEAN CORPUSCULAR HGB CONC 33.3 g/dl (32.0-36.5); MONO # 0.4 10^3/uL (0.0-0.8); MONO % 8.5 % (0.0-5.0); NEUTROPHILS # 3.2 10^3/uL (1.5-8.5); NEUTROPHILS % 63.5 % (36.0-66.0); PLATELET COUNT, AUTOMATED 251 10^3/uL (150-450); RED BLOOD COUNT 4.21 10^6/uL (4.00-5.40)
[2019-09-27 13:34] LABS: HEMATOCRIT 41.7 % (36.0-47.0)
[2019-09-27 13:43] LABS: ALBUMIN 3.6 GM/DL (3.2-5.2); ALT/SGPT 24 U/L (12-78); BILIRUBIN,TOTAL 0.3 MG/DL (0.2-1.0); BLOOD UREA NITROGEN 7 MG/DL (7-18); CALCIUM LEVEL 8.9 MG/DL (8.5-10.1); CARBON DIOXIDE LEVEL 28 MEQ/L (21-32); CHLORIDE LEVEL 107 MEQ/L (98-107); CREATININE FOR GFR 0.66 MG/DL (0.55-1.30); FERRITIN 41 NG/ML (8-252); GLOMERULAR FILTRATION RATE > 60.0 (>60); GLUCOSE, FASTING 83 MG/DL (70-100); IRON (FE) 97 UG/DL (50-170); MAGNESIUM LEVEL 2.1 MG/DL (1.8-2.4); PERCENT SATURATION 42.2 % (13.2-45.0); PHOSPHORUS LEVEL 3.7 MG/DL (2.5-4.9); POTASSIUM SERUM 4.3 MEQ/L (3.5-5.1); SODIUM LEVEL 140 MEQ/L (136-145); TOTAL IRON BINDING CAPACITY 230 UG/DL (250-450); TOTAL PROTEIN 6.3 GM/DL (6.4-8.2)
[2019-09-27 13:47] LABS: TOTAL 25(OH) VITAMIN D 33.4 NG/ML (30.0-100.0); VITAMIN B12 LEVEL 477 PG/ML (247-911)
[2019-09-27 14:39] LABS: HEMOGLOBIN A1c 4.6 %
== END ==
LOC: M WUC 09:07
PROVIDERS: ATTEND Physician Assistant
DX: K91.2 Postsurgical malabsorption, not elsewhere classified (principal); E55.9 Vitamin D deficiency, unspecified; Z98.84 Bariatric surgery status

== ENCOUNTER → 2019-10-28 | Outpatient (CLI) | payer MEDICARE, MEDICAID | LOC: M WUC 08:43 | PROVIDERS: ATTEND Nurse Practitioner | DX: G40.909 Epilepsy, unspecified, not intractable, without status epilepticus (principal) ==

== ENCOUNTER → 2019-11-21 | Outpatient (CLI) | payer MEDICARE, MEDICAID ==
--- NOTE | 2019-11-22 04:05 | ECWPNPC ---
PATIENT NAME: TIFFANIE HUFF : 1980 GENDER: FEMALE VISIT DATE: 11/21/2019 DISCHARGE DATE: 11/21/19 1604 VISIT LOCKED DATE TIME: PHYSICIAN: LILIA HERNANDEZ RESOURCE: LILIA HERNANDEZ REASON FOR APPOINTMENT 1. BACK [phone] HISTORY OF PRESENT ILLNESS HISTORY OF PRESENT ILLNESS: PATIENT WAS AGREEABLE TO DO TELEPHONE VISIT TODAY. CHIEF AREA OF PAIN TODAY IS NECK AND BILATERAL SHOULDERS. RATING PAIN LEVEL A 5/10 VAS. CONTINUES TO HAVE IMPROVEMENT IN HER LOWER BACK PAIN SINCE HAVING RIGHT SIJ IN AUGUST. HISTORY OF FIBROMYALGIA. DISCUSSED TREATMENT OPTIONS. PAIN THE PATIENT DESCRIBES THE PAIN... FALL RISK SCREENING: SCREENING :NO FALLS REPORTED IN THE LAST YEAR CURRENT MEDICATIONS TAKING GABAPENTIN 300 MG CAPSULE 1 CAPSULE ORALLY ONCE A DAY TAKING CYMBALTA 30 MG CAPSULE DELAYED RELEASE PARTICLES 2 CAPS ORALLY ONCE A DAY TAKING TEGRETOL 200 MG TABLET 3 TABLET ORALLY TWICE A DAY TAKING ZYRTEC 1 TAB ORAL DAILY TAKING DEDE 1 TAB ORALLY 180 MG DAILY TAKING LEVOCETIRIZINE DIHYDROCHLORIDE 5 MG TABLET 1 TABLET IN THE EVENING ORALLY ONCE A DAY TAKING DYMISTA NASAL SPRAY AZELASTINE HYRDOCHLORIDE 137MCG & FLUTICASONE PROPIONATE 50MCG( SOLUTION ONE SPRAY PER NOSTRIL NASALLLY TWICE DAILY TAKING DEXILANT 60 MG CAPSULE DELAYED RELEASE 1 CAPSULE ORALLY ONCE A DAY TAKING LINZESS 290 MCG CAPSULE ONE P.O. DAILY TAKING VIMPAT 100 MG TABLET 4 TABS ORALLY TWICE A DAY TAKING BOTOX 200 UNIT SOLUTION RECONSTITUTED INJECTION EVERY 3 MONTHS TAKING AIMOVIG 70 MG/ML SOLUTION AUTO-INJECTOR DIRECTED SUBCUTANEOUS TAKING HYDROCODONE-ACETAMINOPHEN 5-325 MG TABLET 1 TABLET NEEDED ORALLY EVERY 8 HRS NOT-TAKING CANDESARTAN CILEXETIL 32 MG TABLET 1 TABLET ORALLY ONCE A DAY, NOTES: 07/19/191999 NOT-TAKING LEVOTHROID 25 MCG TABLET 1 TABLET ON AN EMPTY STOMACH IN THE MORNING P.O. ONCE A DAY NOT-TAKING FEXOFENADINE HCL 180 MG TABLET 1 TABLET P.O. ONCE A DAY NOT-TAKING FLUTICASONE FUROATE 27.5 MCG/SPRAY SUSPENSION 2 PUFFS NASALLY ONCE A DAY NOT-TAKING SUDAFED 30 MG TABLET 1 TABLET NEEDED ORALLY EVERY 6 HRS MEDICATION LIST REVIEWED AND RECONCILED WITH THE PATIENT PAST MEDICAL HISTORY MIGRAINES WITH AURA EPILEPSY ALLERGIES-SEASONAL ASTHMA MOBID OBESITY DEPRESSION ANXIETY CHRONIC PAIN FIBROMYALGIA CHRONIC CONSTIPATION ALLERGIES RASPBERRY: DYSPNEA - ALLERGY CIPRO: ANAPHYLAXIS - ALLERGY NITROFURANTOIN: ANAPHYLAXIS - ALLERGY CEFOTETAN DISODIUM: HIVES - ALLERGY ERYTHROMYCIN: HIVES - ALLERGY TREE NUTS: ANAPHYLAXIS - ALLERGY CAT & DOG: SNEEZING - ALLERGY MOLD: SNEEZING - ALLERGY CEFTIN: HIVES - ALLERGY FENTANYL: CHEST PAIN - ALLERGY CODEINE SULFATE: COULD INCREASE SEIZURE ACTIVITY - CONTRAINDICATION TRAMADOL HCL: COULD INCREASE SEIZURE ACTIVITY - CONTRAINDICATION TOPAMAX: SUICIDAL - SIDE EFFECTS SURGICAL HISTORY CHOLECYSTECTOMY 04/2012 LIGAMENT REPAIR ON LEFT ANKLE AGE 18 LIGAMENT ON LEFT WRIST AGE 18 LIGAMENT REPAIR ON RIGHT SHOULDER AGE 18 GASTRIC BYPASS 04/26/19 FAMILY HISTORY FATHER: 67 YRS, LUNG CANCER, SEPSIS MOTHER: ALIVE 58 YRS, CERVICAL CANCER SIBLINGS: ALIVE MATERNAL GRAND MOTHER: , COLON CANCER PATERNAL AUNT: LATE 30'S YRS, BREAST CANCER, DIAGNOSED AT LATE 30 2 SISTER(S) - HEALTHY. 2DAUGHTER(S) - HEALTHY. COLON CA- M.GRANDMOTHERBREAST CANCER- PATERNAL AUNTS X 2FATHER- ASTHMA, COPDSIBLINGS- HEALTHY. SOCIAL HISTORY GENERAL: TOBACCO USE ARE YOU A:: NEVER SMOKER. OTHERS AT HOME: CHILDREN. HOUSING: OWNS HOME. EDUCATION LEVEL OF EDUCATION:COLLEGE DIET: REGULAR- S/P GASTRIC BYPASS 04/26/19. LANGUAGE LANGUAGES SPOKEN:PORTUGUESE DOMESTIC VIOLENCE NONE. NEW PATIENT PAIN DIARY TODAY'S VISITNOTES 11/21/2019 PATIENT DESCRIBES PAIN :HAVE IT ALL THE TIME, THROBBING FROM 0-10, WHAT LEVEL IS YOUR PAIN TODAY?5 RECREATIONAL DRUG USE DENIES. EXERCISE: USES ELLIPTICAL, TREADMILL, AND BIKE. LEARNING BARRIERS / SPECIAL NEEDS BARRIERS TO LEARNING?YES COMMENTSDOCUMENTED IN NOTES SECTION> LEARNING DISABILTY HEARING IMPAIRED?NO VISION IMPAIRED?YES GLASSES COGNITIVELY IMPAIRED?NO READINESS TO LEARN?YES LEARNING PREFERENCES?NO LEARNING CAPABILITIES PRESENT?YES EMOTIONAL BARRIERS?NO SPECIAL DEVICES?NO DYNAMO TENDER NEEDED?NO PAIN CLINIC PFS, CLERGY, PUBLIC HEALTH REFERRALS PFS REFERRAL NEEDED?NO CLERGY REFERRAL NEEDED?NO PUBLIC HEALTH REFERRAL NEEDED?NO WAS THE PROVIDER NOTIFIED OF ANY PERTINENT INFO?YES HAS THE PATIENT BEEN EDUCATED REGARDING HIS/HER PLAN OF CARE?YES HAS THE PATIENT BEEN EDUCATED REGARDING PAIN, THE RISK FOR PAIN, THE IMPORTANCE OF EFFECTIVE PAIN MANAGEMENT, AND THE PAIN ASSESSMENT PROCESS?YES LATEX QUESTIONNAIRE LATEX ALLERGY : HAVE YOU EVER DEVELOPED ANY TYPE OF REACTION AFTER HANDLING LATEX PRODUCTS SUCH RUBBER GLOVES, CONDOMS, DIAPHRAGMS, BALLOONS, SOCKS, OR UNDERWEAR?NO LATEX ALLERGY : HAVE YOU EVER DEVELOPED ANY TYPE OF REACTION DURING OR AFTER DENTAL APPOINTMENT, VAGINAL/RECTAL EXAMINATION, SURGICAL PROCEDURE, OR ANY OTHER EXPOSURE?NO LATEX RISK : HAVE YOU EVER HAD ANY DIFFICULTY BREATHING OR HIVES AFTER EATING OR HANDLING ANY FRUITS, OR VEGETABLES; SUCH KIWI, BANANAS, STONE FRUITS, OR CHESTNUTSNO LATEX RISK : DO YOU HAVE A PREVIOUS PERSONAL HISTORY OF MORE THAN NINE SURGERIES, SPINA BIFIDA, OR REPEATED CATHERIZATIONS? NO LATEX RISK : ARE YOU FREQUENTLY EXPOSED TO LATEX PRODUCTS IN YOUR OCCUPATION?NO DATE ASKED : 11/21/2019 [place] 1-2/DAY. ADVANCE DIRECTIVE ADVANCE DIRECTIVE DISCUSSED WITH PATIENT:YES ANCELMO BARNETT [phone] (SO) MARITAL STATUS: SINGLE, WITH PARTNER FOR TEN YEARS. 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 HOSPITALIZATION/MAJOR DIAGNOSTIC PROCEDURE CHILDBIRTH SURGERIES SEIZURES WHEN YOUNGER REVIEW OF SYSTEMS REVIEWED BY: PROVIDER: LILIA FERRARA . CONSTITUTIONAL: ANY CHANGE IN YOUR MEDICAL CONDITION? NO . CHILLS NO . FEVER NO . INFECTION: DO YOU HAVE NEW INFECTIONS? NO . DO YOU HAVE HISTORY OF MRSA? NO . MUSCULOSKELETAL: ANY NEW PATTERNS OF PAIN OR NUMBNESS? NO . GASTROENTEROLOGY: ANY NEW CHANGE IN BOWEL CONTROL? NO . GENITOURINARY: ANY NEW CHANGE IN BLADDER CONTROL? NO . IS THERE A CHANCE YOU COULD BE ? NO . HEMATOLOGY/LYMPH: DO YOU TAKE ANY BLOOD THINNERS? (FOR EXAMPLE- COUMADIN, PLAVIX, AGGRENOX, PLATEL, PRADAXA, OR XARELTO) NO . WHEN WAS YOUR LAST DOSE? DATE: TIME: . NEUROLOGY: HAVE YOU FALLEN IN THE PAST 12 MONTHS? NO . ANY NEW EXTREMITY NUMBNESS OR WEAKNESS? NO . CARDIOLOGY: DO YOU HAVE A PACEMAKER OR DEFIBRILLATOR? NO . RESPIRATORY: HAVE YOU BEEN SICK IN THE PAST WEEK? NO . FEVER NO . FLU LIKE SYMPTOMS? NO . COUGH NO . INTEGUMENTARY: DO YOU HAVE ANY RASHES OR OPEN SORES? NO . ALLERGIC/IMMUNO: ARE YOU ALLERGIC TO IV DYE? NO . ANY NEW ALLERGIES? NO . PSYCHIATRIC: DO YOU HAVE THOUGHTS OF HURTING YOURSELF OR SOMEONE ELSE? NO . ARE YOU ABUSED, NEGLECTED, OR IN AN UNSAFE ENVIRONMENT? NO . ENDOCRINOLOGY: ARE YOU DIABETIC? NO . OTHER: DO YOU NEED ANY PRESCRIPTIONS? NO . IF YES, PLEASE LIST: ____ . ANY NEW PROBLEMS WITH YOUR MEDICATIONS? NO . WHEN DID YOU LAST EAT? ____ . WHEN DID YOU LAST DRINK? ____ . WHAT DID YOU LAST DRINK? ____ . NAME OF PERSON DRIVING YOU HOME? ____ . DO YOU HAVE ANY OTHER QUESTIONS OR CONCERNS NO . ASSESSMENTS SACROILIITIS - M46.1 (PRIMARY) TREATMENT SACROILIITIS NOTES: FOLLOW-UP IN 6-8 WEEKS NECK AND UPPER BACK PAIN. CONTINUE HOME EXERCISE AND STRETCHING. CONSERVATIVE CARE FOR FIBROMYALGIA FLAREUP IS REVIEWED. TOTAL TIME SPENT DURING TELEPHONE VISIT WAS APPROXIMATELY 11 MINUTES. OTHERS NOTES: NO VITALS OBTAINED DUE TO VIRTUAL VISIT. DISPOSITION & COMMUNICATION FOLLOW UP 6-8WKS (REASON: NECK/LBP) ELECTRONICALLY SIGNED BY ALEM YOUSSEF ON 11/21/2019 AT 12:23 PM EDT DISCLAIMER : THIS IS A VISIT SUMMARY EXTRACTED FROM THE [employer] CHART. IT IS NOT A COPY OF THE [employer] PROGRESS NOTE. CHIP
== END ==
LOC: M PAIN 11:45
PROVIDERS: ATTEND Nurse Practitioner Family
DX: M46.1 Sacroiliitis, not elsewhere classified (principal); G43.109 Migraine with aura, not intractable, without status migrainosus; G40.909 Epilepsy, unspecified, not intractable, without status epilepticus; J45.909 Unspecified asthma, uncomplicated; Z86.59 Personal history of other mental and behavioral disorders; M79.7 Fibromyalgia; Z98.84 Bariatric surgery status; Z88.1 Allergy status to other antibiotic agents; Z88.5 Allergy status to narcotic agent; Z88.8 Allergy status to other drugs, medicaments and biological substances; Z91.018 Allergy to other foods; Z91.09 Other allergy status, other than to drugs and biological substances; Z79.899 Other long term (current) drug therapy

== ENCOUNTER → 2020-01-10 | Outpatient (CLI) | payer MEDICARE, MEDICAID | LOC: M PAIN 08:45 → M TMPAIN 08:45 | PROVIDERS: ATTEND Nurse Practitioner Family | DX: M79.18 Myalgia, other site (principal); M54.2 Cervicalgia ==

== ENCOUNTER → 2020-03-26 | Outpatient (CLI) | payer MEDICARE, MEDICAID ==
[2020-05-07 11:44] LABS: HEMATOCRIT 41.7 % (36.0-47.0)
[2020-05-12 21:17] LABS: BASO % 0.7 % (0.0-1.0); EOS # 0.1 10^3/uL (0.0-0.5); EOS % 1.1 % (0.0-3.0); HEMATOCRIT 41.7 % (36.0-47.0); LYMPH # 1.7 10^3/uL (1.5-5.0); LYMPH % 39.1 % (24.0-44.0); MEAN CORPUSCULAR HEMOGLOBIN 33.2 pg (27.0-33.0); MEAN CORPUSCULAR HGB CONC 33.6 g/dl (32.0-36.5); MEAN CORPUSCULAR VOLUME 98.8 fl (80.0-96.0); MONO # 0.3 10^3/uL (0.0-0.8); MONO % 6.9 % (0.0-5.0); NEUTROPHILS # 2.3 10^3/uL (1.5-8.5); PLATELET COUNT, AUTOMATED 264 10^3/uL (150-450); RED BLOOD COUNT 4.22 10^6/uL (4.00-5.40); WHITE BLOOD COUNT 4.4 10^3/uL (4.0-10.0)
[2020-05-21 22:39] LABS: HEMOGLOBIN A1c 4.9 %
[2020-05-21 23:53] LABS: PHOSPHORUS LEVEL 3.3 MG/DL (2.5-4.9); TOTAL 25(OH) VITAMIN D 62.4 NG/ML (30.0-100.0)
== END ==
LOC: M LAB 09:49
PROVIDERS: ATTEND Surgery
DX: K91.2 Postsurgical malabsorption, not elsewhere classified (principal); E55.9 Vitamin D deficiency, unspecified; Z86.39 Personal history of other endocrine, nutritional and metabolic disease; Z98.84 Bariatric surgery status

== ENCOUNTER → 2020-05-15 | Outpatient (CLI) | payer MEDICARE, MEDICAID ==
--- NOTE | 2020-05-17 14:54 | ECWPNPC ---
PATIENT NAME: TIFFANIE HUFF : 1980 GENDER: FEMALE VISIT DATE: 05/15/2020 DISCHARGE DATE: 05/15/20 1055 VISIT LOCKED DATE TIME: PHYSICIAN: LILIA HERNANDEZ RESOURCE: LILIA HERNANDEZ REASON FOR APPOINTMENT 1. MED MANAGEMENT HISTORY OF PRESENT ILLNESS PAIN CENTER INTAKE QUESTIONS: DO YOU HAVE A HISTORY OF MRSA? :NO DO YOU TAKE A BLOOD THINNERS? :NO DO YOU HAVE ANY BLEEDING DISORDERS? :NO ANY NEW NUMBNESS OR WEAKNESS IN YOUR LEGS OR ARMS? :NO ANY PACEMAKER,DEFIBRILLATOR, OR DORSAL COLUMN STIMULATOR? :NO DO YOU HAVE ANY RASHES OR OPEN SORES? :NO ARE YOU ALLERGIC TO IV DYE? :NO ARE YOU DIABETIC? :NO ANY NEW PROBLEMS WITH YOUR MEDICATIONS? :NO HAVE YOU RECEIVED A VACCINE IN THE PAST 30 DAYS? :NO DO YOU PLAN TO RECEIVE A VACCINE IN THE NEXT 21 DAYS? :NO DO YOU NEED ANY PRESCRIPTION? :NO DO YOU TAKE ANY IMMUNOSUPPRESSIVE MEDICATIONS? :NO IS THERE A CHANCE YOU COULD BE ? :NO ARE YOU BREAST FEEDING? :NO GENERAL: HERE FOR F/U OF RIGHT NECK AND UPPER BACK PAIN.PAIN IN THIS AREA HAS GOTTEN WORSE SINCE OCTOBER.RATING PAIN VAS 8/10.PAIN IS AGGREVATED WITH ROJM OF NECK AND RIGHT ARM.IS SCHEDULED FOR TPI RIGHT NECK AND UPPER BACK IN A FEW WEEKS. -. FALL RISK SCREENING: SCREENING :NO FALLS REPORTED IN THE LAST YEAR PAIN SCREENING: PATIENT HAS A COMPLAINT OF ACUTE OR CHRONIC PAIN :YES LOCATION OF PAIN:RIGHT SHOULDER INTENSITY OF PAIN (SCALE OF 1 TO 10):8 WHAT DOES YOUR PAIN FEEL LIKE:BURNING, CONTINOUS, TENDER NURSING NOTE: -. CURRENT MEDICATIONS TAKING GABAPENTIN 300 MG CAPSULE 1 CAPSULE ORALLY ONCE A DAY TAKING CYMBALTA 30 MG CAPSULE DELAYED RELEASE PARTICLES 2 CAPS ORALLY ONCE A DAY TAKING TEGRETOL 200 MG TABLET 3 TABLET ORALLY TWICE A DAY TAKING ZYRTEC 1 TAB ORAL DAILY TAKING DEDE 1 TAB ORALLY 180 MG DAILY TAKING LEVOCETIRIZINE DIHYDROCHLORIDE 5 MG TABLET 1 TABLET IN THE EVENING ORALLY ONCE A DAY TAKING DYMISTA NASAL SPRAY AZELASTINE HYRDOCHLORIDE 137MCG & FLUTICASONE PROPIONATE 50MCG( SOLUTION ONE SPRAY PER NOSTRIL NASALLLY TWICE DAILY TAKING DEXILANT 60 MG CAPSULE DELAYED RELEASE 1 CAPSULE ORALLY ONCE A DAY TAKING LINZESS 290 MCG CAPSULE ONE P.O. DAILY TAKING VIMPAT 100 MG TABLET 4 TABS ORALLY TWICE A DAY TAKING BOTOX 200 UNIT SOLUTION RECONSTITUTED INJECTION EVERY 3 MONTHS TAKING AIMOVIG 70 MG/ML SOLUTION AUTO-INJECTOR DIRECTED SUBCUTANEOUS MONTHLY TAKING HYDROCODONE-ACETAMINOPHEN 5-325 MG TABLET 1 TABLET NEEDED ORALLY EVERY 8 HRS NOT-TAKING CANDESARTAN CILEXETIL 32 MG TABLET 1 TABLET ORALLY ONCE A DAY, NOTES: 07/19/191999 NOT-TAKING LEVOTHROID 25 MCG TABLET 1 TABLET ON AN EMPTY STOMACH IN THE MORNING P.O. ONCE A DAY NOT-TAKING FEXOFENADINE HCL 180 MG TABLET 1 TABLET P.O. ONCE A DAY NOT-TAKING FLUTICASONE FUROATE 27.5 MCG/SPRAY SUSPENSION 2 PUFFS NASALLY ONCE A DAY NOT-TAKING SUDAFED 30 MG TABLET 1 TABLET NEEDED ORALLY EVERY 6 HRS PAST MEDICAL HISTORY MIGRAINES WITH AURA EPILEPSY ALLERGIES-SEASONAL ASTHMA MOBID OBESITY DEPRESSION ANXIETY CHRONIC PAIN FIBROMYALGIA CHRONIC CONSTIPATION NECK AND LOW BACK ALLERGIES RASPBERRY: DYSPNEA - ALLERGY CIPRO: ANAPHYLAXIS - ALLERGY NITROFURANTOIN: ANAPHYLAXIS - ALLERGY CEFOTETAN DISODIUM: HIVES - ALLERGY ERYTHROMYCIN: HIVES - ALLERGY TREE NUTS: ANAPHYLAXIS - ALLERGY CAT & DOG: SNEEZING - ALLERGY MOLD: SNEEZING - ALLERGY CEFTIN: HIVES - ALLERGY FENTANYL: CHEST PAIN - ALLERGY CODEINE SULFATE: COULD INCREASE SEIZURE ACTIVITY - CONTRAINDICATION TRAMADOL HCL: COULD INCREASE SEIZURE ACTIVITY - CONTRAINDICATION TOPAMAX: SUICIDAL - SIDE EFFECTS SURGICAL HISTORY CHOLECYSTECTOMY 04/2012 LIGAMENT REPAIR ON LEFT ANKLE AGE 18 LIGAMENT ON LEFT WRIST AGE 18 LIGAMENT REPAIR ON RIGHT SHOULDER AGE 18 GASTRIC BYPASS 04/26/19 FAMILY HISTORY FATHER: 67 YRS, LUNG CANCER, SEPSIS MOTHER: ALIVE 58 YRS, CERVICAL CANCER SIBLINGS: ALIVE MATERNAL GRAND MOTHER: , COLON CANCER PATERNAL AUNT: LATE 30'S YRS, BREAST CANCER, DIAGNOSED AT LATE 30 2 SISTER(S) - HEALTHY. 2DAUGHTER(S) - HEALTHY. COLON CA- M.GRANDMOTHERBREAST CANCER- PATERNAL AUNTS X 2FATHER- ASTHMA, COPDSIBLINGS- HEALTHY. SOCIAL HISTORY GENERAL: TOBACCO USE ARE YOU A:: NEVER SMOKER. LATEX QUESTIONNAIRE LATEX ALLERGY : HAVE YOU EVER DEVELOPED ANY TYPE OF REACTION AFTER HANDLING LATEX PRODUCTS SUCH RUBBER GLOVES, CONDOMS, DIAPHRAGMS, BALLOONS, SOCKS, OR UNDERWEAR?NO LATEX ALLERGY : HAVE YOU EVER DEVELOPED ANY TYPE OF REACTION DURING OR AFTER DENTAL APPOINTMENT, VAGINAL/RECTAL EXAMINATION, SURGICAL PROCEDURE, OR ANY OTHER EXPOSURE?NO DATE ASKED : 01/09/2020 LATEX RISK : HAVE YOU EVER HAD ANY DIFFICULTY BREATHING OR HIVES AFTER EATING OR HANDLING ANY FRUITS, OR VEGETABLES; SUCH KIWI, BANANAS, STONE FRUITS, OR CHESTNUTSYES - PLEASE INDICATE : TREE NUTS LATEX RISK : DO YOU HAVE A PREVIOUS PERSONAL HISTORY OF MORE THAN NINE SURGERIES, SPINA BIFIDA, OR REPEATED CATHERIZATIONS? NO LATEX RISK : ARE YOU FREQUENTLY EXPOSED TO LATEX PRODUCTS IN YOUR OCCUPATION?NO ALCOHOL SCREENING DID YOU HAVE A DRINK CONTAINING ALCOHOL IN THE PAST YEAR?YES HOW OFTEN DID YOU HAVE SIX OR MORE DRINKS ON ONE OCCASION IN THE PAST YEAR?NEVER (0 POINTS) HOW MANY DRINKS DID YOU HAVE ON A TYPICAL DAY WHEN YOU WERE DRINKING IN THE PAST YEAR?1 OR 2 (0 POINTS) HOW OFTEN DID YOU HAVE A DRINK CONTAINING ALCOHOL IN THE PAST YEAR?MONTHLY OR LESS (1 POINT) POINTS1 INTERPRETATIONNEGATIVE RECREATIONAL DRUG USE DENIES. CAFFEINE 1-2/DAY. 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 DIET: REGULAR- S/P GASTRIC BYPASS 04/26/19. EXERCISE: USES ELLIPTICAL, TREADMILL, AND BIKE. MARITAL STATUS: SINGLE, WITH PARTNER FOR TEN YEARS. OTHERS AT HOME: CHILDREN. PAIN CLINIC PFS, CLERGY, PUBLIC HEALTH REFERRALS PFS REFERRAL NEEDED?NO CLERGY REFERRAL NEEDED?NO PUBLIC HEALTH REFERRAL NEEDED?NO WAS THE PROVIDER NOTIFIED OF ANY PERTINENT INFO?YES HAS THE PATIENT BEEN EDUCATED REGARDING HIS/HER PLAN OF CARE?YES HAS THE PATIENT BEEN EDUCATED REGARDING PAIN, THE RISK FOR PAIN, THE IMPORTANCE OF EFFECTIVE PAIN MANAGEMENT, AND THE PAIN ASSESSMENT PROCESS?YES HOUSING: OWNS HOME. ADVANCE DIRECTIVE ADVANCE DIRECTIVE DISCUSSED WITH PATIENT:YES ANCELMO BANRETT [phone] (SO) HOSPITALIZATION/MAJOR DIAGNOSTIC PROCEDURE CHILDBIRTH SURGERIES SEIZURES WHEN YOUNGER REVIEW OF SYSTEMS CONSTITUTIONAL: ANY RECENT FEVER NO . CHILLS NO . WEIGHT CHANGE OF UNKNOWN REASONS NO . GASTROENTEROLOGY: NEW UNEXPLAINABLE CHANGES IN BOWEL CONTROL NO . CONSTIPATION NO . GENITOURINARY: ANY NEW CHANGE IN BLADDER CONTROL? NO . NEUROLOGY: NEW ONSET DIZZINESS OR NEUROLOGICAL CHANGES NOT MENTIONED NO . NEW NUMBNESS OR PAIN PATTERNS NOT MENTIONED AND PERTINENT TO TODAY'S VISIT NO . CARDIOLOGY: NEW CHEST PRESSURE NO . NEW CHEST PAIN NO . RESPIRATORY: UNEXPLAINABLE COUGH NO . NEW SHORTNESS OF BREATH NO . VITAL SIGNS WT 178.8 LBS, HT 63.5 IN, BMI 31.17 INDEX, BP 118/67 MM HG, HR 73 /MIN, RR 18 /MIN, TEMP 98.0 F, OXYGEN SAT % 98%, NA INITIALS AW 1015. EXAMINATION GENERAL EXAMINATION: GENERAL AWAKE,ALERT ,PLEAASANT . PSYCH AFFECT NORMAL . LUNGS: LUNG GONZALEZ ARE CLEAR TO AUSCULTATION BILATERALLY. GOOD MOVEMENT OF AIR . HEART: S1, S2 IN A REGULAR RATE AND RHYTHM. NO SIGNIFICANT MURMURS, RUBS OR GALLOPS NOTED . CERVICAL: TRIGGER POINTS: CERVICAL AND TRAPEZIUS RIGHT..PAIN IS AGGREVATED WITH ROJM NECK TRIGGER POINTS ELICITED RIGHT UPPER BACK/SCAPULAR/RHIMBOID REGION.PAIN IN THIS AREA IS AGGREVATED WITH ROJM NECK AND RIGHT ARM. DIAGNOSTIC TESTS REVIEWED MRI CERVICAL SPINE-02/2018. ASSESSMENTS MYALGIA, OTHER SITE - M79.18 (PRIMARY) CERVICALGIA - M54.2 TREATMENT MYALGIA, OTHER SITE NOTES: KEEP SCHEDULED APPOINTMENT WITH US FOR TRIGGER POINT INJECTIONS RIGHT NECK/RIGHT UPPER BACK/RHOMBOID/SCAPULAR. PROCEDURE CODES FA211 ESTABILISHED PATIENT [facility] CHARGE DISPOSITION & COMMUNICATION FOLLOW UP POST PROCEDURE AFTER TPI 06/04 (REASON: RIGHT NECK/UPPER BACK) ELECTRONICALLY SIGNED BY ALEM YOUSSEF ON 05/17/2020 AT 02:48 PM EDT DISCLAIMER : THIS IS A VISIT SUMMARY EXTRACTED FROM THE [employer] CHART. IT IS NOT A COPY OF THE [employer] PROGRESS NOTE. CHIP
== END ==
LOC: M PAIN 09:45
PROVIDERS: ATTEND Nurse Practitioner Family
DX: M79.18 Myalgia, other site (principal); M54.2 Cervicalgia; G43.109 Migraine with aura, not intractable, without status migrainosus; G40.909 Epilepsy, unspecified, not intractable, without status epilepticus; J45.909 Unspecified asthma, uncomplicated; M79.7 Fibromyalgia; Z86.59 Personal history of other mental and behavioral disorders; Z98.84 Bariatric surgery status; Z88.1 Allergy status to other antibiotic agents; Z88.5 Allergy status to narcotic agent; Z88.8 Allergy status to other drugs, medicaments and biological substances; Z91.018 Allergy to other foods; Z91.09 Other allergy status, other than to drugs and biological substances; Z79.899 Other long term (current) drug therapy

== ENCOUNTER → 2020-05-30 | Outpatient (CLI) | payer MEDICARE, MEDICAID | LOC: M LABSMTC 10:16 | PROVIDERS: ATTEND Anesthesiology | DX: Z20.828 Contact with and (suspected) exposure to other viral communicable diseases (principal) | CPT/HCPCS: C9803; U0003 ==

== ENCOUNTER → 2020-06-04 | Outpatient (CLI) | payer MEDICARE, MEDICAID ==
[~2020-06-04] MED LIST changes: +BUPIVACAINE HCL 0.25% 10ML VIAL As Ordered ONE; +BUPIVACAINE HCL 0.25% 30ML VIAL As Ordered ONE; +TRIAMCINOLONE ACETONIDE SUSP 40 MG/ML VIAL (J3301) As Ordered ONE; +diazePAM 5 MG TAB As Ordered ONE
--- NOTE | 2020-06-04 18:37 | ECWPNPC ---
PATIENT NAME: TIFFANIE HUFF : 1980 GENDER: FEMALE VISIT DATE: 06/04/2020 DISCHARGE DATE: 06/04/20 1004 VISIT LOCKED DATE TIME: PHYSICIAN: YARA LIZ MD RESOURCE: YARA LIZ MD REASON FOR APPOINTMENT 1. TRIGGER POINT INJECTION NECK/UPPER BACK HISTORY OF PRESENT ILLNESS GENERAL: HERE FOR F/U OF CHRONIC RIGHT NECK AND RIGHT SCAPULAR PAIN.PAIN IN THIS AREA IS AGGREVATED WITH ROJM OF NECK AND RIGHT ARM.THIS BEGAN IN OCTOBER OF 2019. -. FALL RISK SCREENING: SCREENING :NO FALLS REPORTED IN THE LAST YEAR PAIN SCREENING: PATIENT HAS A COMPLAINT OF ACUTE OR CHRONIC PAIN :YES LOCATION OF PAIN:LEFT SHOULDER, RIGHT SHOULDER, UPPER BACK BILATERAL SHOULDER BLADES INTENSITY OF PAIN (SCALE OF 1 TO 10):7 WHAT DOES YOUR PAIN FEEL LIKE:BURNING, CONTINOUS, SHARP DURATION:CONTINOUS PAIN IS INCREASED BY:OTHERS DRIVING PAIN IS DECREASED BY: NOTHING HELPS RIGHT NOW PLAN/GOALS/TREATMENT/INTERVENTION/FOLLOW UP:SEE PLAN NURSING NOTE: -. PAIN CENTER INTAKE QUESTIONS: DO YOU HAVE A HISTORY OF MRSA? :NO DO YOU TAKE A BLOOD THINNERS? :NO DO YOU HAVE ANY BLEEDING DISORDERS? :NO ANY NEW NUMBNESS OR WEAKNESS IN YOUR LEGS OR ARMS? :NO ANY PACEMAKER,DEFIBRILLATOR, OR DORSAL COLUMN STIMULATOR? :NO DO YOU HAVE ANY RASHES OR OPEN SORES? :NO ARE YOU ALLERGIC TO IV DYE? :NO ARE YOU DIABETIC? :NO ANY NEW PROBLEMS WITH YOUR MEDICATIONS? :NO HAVE YOU RECEIVED A VACCINE IN THE PAST 30 DAYS? :NO DO YOU PLAN TO RECEIVE A VACCINE IN THE NEXT 21 DAYS? :NO DO YOU TAKE ANY IMMUNOSUPPRESSIVE MEDICATIONS? :NO ANY HISTORY OF SEIZURES? :YES GRAND MAL AND PETIT MAL- LAST GRAND MAL 2015 ANY HISTORY OF CARDIAC ISSUES OR EVENTS? :NO DO YOU HAVE SLEEP APNEA? :NO ANY RECENT HEAD INJURY? :NO DO YOU HAVE ANY NEW INFECTIONS? :NO IS THERE A CHANCE YOU COULD BE ? :NO ARE YOU BREAST FEEDING? :NO WHEN DID YOU LAST EAT? : 06/03/202099 WHEN DID YOU LAST DRINK? : 06/03/202099 WHAT DID YOU LAST DRINK? : WATER NAME OF PERSON DRIVING YOU HOME? : MOM- LM DO YOU HAVE ANY OTHER QUESTIONS OR CONCERNS? : NO CURRENT MEDICATIONS TAKING GABAPENTIN 300 MG CAPSULE 1 CAPSULE ORALLY ONCE A DAY, NOTES: 06/03/201999 TAKING CYMBALTA 30 MG CAPSULE DELAYED RELEASE PARTICLES 2 CAPS ORALLY ONCE A DAY, NOTES: 06/03 2000 TAKING TEGRETOL 200 MG TABLET 3 TABLET ORALLY TWICE A DAY, NOTES: 06/03 2000 TAKING ZYRTEC 1 TAB ORAL DAILY, NOTES: 06/03 2000 TAKING DEDE 1 TAB ORALLY 180 MG DAILY, NOTES: 06/03 830 TAKING LEVOCETIRIZINE DIHYDROCHLORIDE 5 MG TABLET 1 TABLET IN THE EVENING ORALLY ONCE A DAY, NOTES: 06/03 2000 TAKING DYMISTA NASAL SPRAY AZELASTINE HYRDOCHLORIDE 137MCG & FLUTICASONE PROPIONATE 50MCG( SOLUTION ONE SPRAY PER NOSTRIL NASALLLY TWICE DAILY, NOTES: 06/03 2000 TAKING LINZESS 290 MCG CAPSULE ONE P.O. ONCE DAILY NEEDED, NOTES: NOT RECENTLY TAKING VIMPAT 200 MG TABLET 1 CAP ORALLY TWICE A DAY, NOTES: 06/03 2000 TAKING BOTOX 200 UNIT SOLUTION RECONSTITUTED INJECTION EVERY 3 MONTHS, NOTES: MARCH 2020 TAKING AIMOVIG 70 MG/ML SOLUTION AUTO-INJECTOR DIRECTED SUBCUTANEOUS MONTHLY, NOTES: 05/27/20 TAKING HYDROCODONE-ACETAMINOPHEN 5-325 MG TABLET 1 TABLET NEEDED ORALLY EVERY 8 HRS, NOTES: NOT RECENTLY NOT-TAKING DEXILANT 60 MG CAPSULE DELAYED RELEASE 1 CAPSULE ORALLY ONCE A DAY NOT-TAKING CANDESARTAN CILEXETIL 32 MG TABLET 1 TABLET ORALLY ONCE A DAY, NOTES: 07/19/191999 NOT-TAKING LEVOTHROID 25 MCG TABLET 1 TABLET ON AN EMPTY STOMACH IN THE MORNING P.O. ONCE A DAY NOT-TAKING FEXOFENADINE HCL 180 MG TABLET 1 TABLET P.O. ONCE A DAY NOT-TAKING FLUTICASONE FUROATE 27.5 MCG/SPRAY SUSPENSION 2 PUFFS NASALLY ONCE A DAY NOT-TAKING SUDAFED 30 MG TABLET 1 TABLET NEEDED ORALLY EVERY 6 HRS MEDICATION LIST REVIEWED AND RECONCILED WITH THE PATIENT PAST MEDICAL HISTORY EPILEPSY ALLERGIES-SEASONAL ASTHMA MOBID OBESITY DEPRESSION ANXIETY CHRONIC PAIN FIBROMYALGIA CHRONIC CONSTIPATION NECK AND LOW BACK MIGRAINES WITH AURA ALLERGIES RASPBERRY: DYSPNEA - ALLERGY CIPRO: ANAPHYLAXIS - ALLERGY NITROFURANTOIN: ANAPHYLAXIS - ALLERGY CEFOTETAN DISODIUM: HIVES - ALLERGY ERYTHROMYCIN: HIVES - ALLERGY TREE NUTS: ANAPHYLAXIS - ALLERGY CAT & DOG: SNEEZING - ALLERGY MOLD: SNEEZING - ALLERGY CEFTIN: HIVES - ALLERGY FENTANYL: CHEST PAIN - ALLERGY CODEINE SULFATE: COULD INCREASE SEIZURE ACTIVITY - CONTRAINDICATION TRAMADOL HCL: COULD INCREASE SEIZURE ACTIVITY - CONTRAINDICATION TOPAMAX: SUICIDAL - SIDE EFFECTS SURGICAL HISTORY CHOLECYSTECTOMY 04/2012 LIGAMENT REPAIR ON LEFT ANKLE AGE 18 LIGAMENT ON LEFT WRIST AGE 18 LIGAMENT REPAIR ON RIGHT SHOULDER AGE 18 GASTRIC BYPASS 04/26/19 FAMILY HISTORY FATHER: 67 YRS, LUNG CANCER, SEPSIS MOTHER: ALIVE 58 YRS, CERVICAL CANCER SIBLINGS: ALIVE MATERNAL GRAND MOTHER: , COLON CANCER PATERNAL AUNT: LATE 30'S YRS, BREAST CANCER, DIAGNOSED AT LATE 30 2 SISTER(S) - HEALTHY. 2DAUGHTER(S) - HEALTHY. COLON CA- M.GRANDMOTHERBREAST CANCER- PATERNAL AUNTS X 2FATHER- ASTHMA, COPDSIBLINGS- HEALTHY. SOCIAL HISTORY GENERAL: TOBACCO USE ARE YOU A:: NEVER SMOKER. LATEX QUESTIONNAIRE LATEX ALLERGY : HAVE YOU EVER DEVELOPED ANY TYPE OF REACTION AFTER HANDLING LATEX PRODUCTS SUCH RUBBER GLOVES, CONDOMS, DIAPHRAGMS, BALLOONS, SOCKS, OR UNDERWEAR?NO LATEX ALLERGY : HAVE YOU EVER DEVELOPED ANY TYPE OF REACTION DURING OR AFTER DENTAL APPOINTMENT, VAGINAL/RECTAL EXAMINATION, SURGICAL PROCEDURE, OR ANY OTHER EXPOSURE?NO LATEX RISK : HAVE YOU EVER HAD ANY DIFFICULTY BREATHING OR HIVES AFTER EATING OR HANDLING ANY FRUITS, OR VEGETABLES; SUCH KIWI, BANANAS, STONE FRUITS, OR CHESTNUTSYES - PLEASE INDICATE : TREE NUTS LATEX RISK : DO YOU HAVE A PREVIOUS PERSONAL HISTORY OF MORE THAN NINE SURGERIES, SPINA BIFIDA, OR REPEATED CATHERIZATIONS? NO LATEX RISK : ARE YOU FREQUENTLY EXPOSED TO LATEX PRODUCTS IN YOUR OCCUPATION?NO DATE ASKED : 06/01/2020 ALCOHOL SCREENING DID YOU HAVE A DRINK CONTAINING ALCOHOL IN THE PAST YEAR?YES HOW OFTEN DID YOU HAVE SIX OR MORE DRINKS ON ONE OCCASION IN THE PAST YEAR?NEVER (0 POINTS) HOW MANY DRINKS DID YOU HAVE ON A TYPICAL DAY WHEN YOU WERE DRINKING IN THE PAST YEAR?1 OR 2 (0 POINTS) HOW OFTEN DID YOU HAVE A DRINK CONTAINING ALCOHOL IN THE PAST YEAR?MONTHLY OR LESS (1 POINT) POINTS1 INTERPRETATIONNEGATIVE RECREATIONAL DRUG USE DENIES. CAFFEINE 1-2/DAY. 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 DIET: REGULAR- S/P GASTRIC BYPASS 04/26/19. EXERCISE: USES ELLIPTICAL, TREADMILL, AND BIKE. MARITAL STATUS: SINGLE, WITH PARTNER FOR TEN YEARS. OTHERS AT HOME: CHILDREN. PAIN CLINIC PFS, CLERGY, PUBLIC HEALTH REFERRALS PFS REFERRAL NEEDED?NO CLERGY REFERRAL NEEDED?NO PUBLIC HEALTH REFERRAL NEEDED?NO WAS THE PROVIDER NOTIFIED OF ANY PERTINENT INFO?YES HAS THE PATIENT BEEN EDUCATED REGARDING HIS/HER PLAN OF CARE?YES HAS THE PATIENT BEEN EDUCATED REGARDING PAIN, THE RISK FOR PAIN, THE IMPORTANCE OF EFFECTIVE PAIN MANAGEMENT, AND THE PAIN ASSESSMENT PROCESS?YES HOUSING: OWNS HOME. ADVANCE DIRECTIVE ADVANCE DIRECTIVE DISCUSSED WITH PATIENT:YES ANCELMO BARNETT [phone] (SO) HOSPITALIZATION/MAJOR DIAGNOSTIC PROCEDURE CHILDBIRTH SURGERIES SEIZURES WHEN YOUNGER VITAL SIGNS WT 173.8 LBS, HT 63.5 IN, BMI 30.30 INDEX, BP 104/62 MM HG, HR 88 /MIN, RR 18 /MIN, TEMP 96.9 F, OXYGEN SAT % 98%, SAFE IN ENV? (Y/N) YES, NA INITIALS SC 08:52, REVIEWED BY: MT. EXAMINATION GENERAL EXAMINATION: THE PATIENT IS ALERT, ORIENTED TIMES THREE AND COOPERATIVE. HEART SHOWS REGULAR RHYTHM, NO MURMURS AND NO GALLOPS. LUNGS ARE CLEAR TO AUSCULTATION. ASSESSMENTS MYALGIA, OTHER SITE - M79.18 (PRIMARY) TREATMENT MYALGIA, OTHER SITE MEDICATION: VALIUM TAB 10MG ORALLY (DIAZEPAM)JOSE LUIS WILSON 06/04/2020 9:16:16 AM > LOT #: [id number] EXP: 11/28. JAY FALLON 06/04/2020 9:21:47 AM > VERIFIED JOSE LUIS WILSON 06/04/2020 9:28:33 AM > ADMINISTERED AT 0922. OTHERS NOTES: PRE PROCEDURE PHONE CALL COMPLETED 06/01/2020 0901 PRECIOUS. PROCEDURES PAIN NURSING RECORD PRE-PROCEDURE IV SITE N/A PROCEDURE IN ROOM 0830 UPON ARRIVAL TO CLINIC, PHYSICIAN IN ROOM 0948, START 0951, FINISH 0954, PHYSICIAN OUT OF ROOM 0956, OUT OF ROOM 1005, STEROID KENALOG, O2 N/A, ECG N/A, PATIENT SHIELDED NO, SAFETY STRAP NO, PREP ALCOHOL BY DR. LIZ, IV INFUSED N/A, DRESSING TEGADERM BY Bushra WILSON LUMBER STACKER OPERATOR LOC: JOSE LUIS WILSON 06/04/2020 9:29:00 AM > 1. ALERT, ORIENTED RESP: JOSE LUIS WILSON 06/04/2020 9:29:05 AM > 1. REGULAR, NO DYSPNEA COLOR: JOSE LUIS WILSON 06/04/2020 9:29:11 AM > 1. PINK SKIN: JOSE LUIS WILSON 06/04/2020 9:29:22 AM > 1. WARM, DRY POSITION: JOSE LUIS WILSON 06/04/2020 9:29:33 AM > 4. OTHER, SITTING VITALS: JOSE LUIS WILSON 06/04/2020 10:02:53 AM > POST PROCEDURE BP 114/73, 99% RA, HR 95, 16. NOTES PROVIDER AWARE OF HISTORY OF SEIZURES, LAST SEIZURE NOTED TO BE IN 2015, PATIENT FOLLOWS WITH NEUROLOGY AND TAKES MEDICATION, TEGRETOL BID. DISCHARGE: POST PAIN 01/17, DRESSING SITE DRY AND INTACT, IV N/A, GAIT STEADY, TEACHING COMPLETED, PATIENT ACKNOWLEDGES UNDERSTANDING YES, PATIENT DISCHARGED AT 1005 PN TRIGGER POINT INJECTION WITH STEROIDS PRE PROCEDURE DIAGNOSIS 1. MYALGIA 2. PAIN AT RIGHT NECK AREA AND RIGHT SHOULDER AREA POST PROCEDURE DIAGNOSIS 1. MYALGIA 2. PAIN AT RIGHT NECK AREA AND RIGHT SHOULDER AREA PROCEDURE TRIGGER POINT INJECTION AT RIGHT NECK AREA AND RIGHT SHOULDER AREA SURGEON DR. YARA LIZ CONCRETE MASON NONE ANESTHESIA LOCAL PRE PROCEDURE NOTE THE PATIENT HAS A HISTORY OF CHRONIC PAIN AT THE RIGHT NECK AREA AND RIGHT SHOULDER AREA. I EVALUATED THE PATIENT AND REVIEWED THE CHART. THERE IS EVIDENCE OF BANDS OF TISSUE WITH RESTRICTION OF MOVEMENT AND PRESENCE OF TRIGGER POINT AT THE RIGHT NECK AREA AND RIGHT SHOULDER AREA. I DISCUSSED THAT THE USE OF STEROIDS MAY CONTRIBUTE TO IMMUNOSUPPRESSION OF THE PATIENT'S BODY AGAINST INFECTIONS SUCH COVID-19. THE PATIENT IS AWARE OF THE POTENTIAL COMPLICATIONS ASSOCIATED WITH THIS VIRUS, INCLUDING, BUT NOT LIMITED TO, . I WENT OVER THE RISKS, ALTERNATIVES, AND BENEFITS ASSOCIATED WITH THIS PROCEDURE. THE PATIENT WOULD LIKE TO PROCEED AND GIVE CONSENT TO PERFORMED THE PROCEDURE. THE PATIENT DENIES UNEXPLAINABLE WEIGHT LOSS, FEVER, CHILLS, OR NEW CHANGES IN URINARY OR BOWEL CONTROL. THE PATIENT IS COVID-19 NEGATIVE DESCRIPTION OF PROCEDURE THE PATIENT WAS BROUGHT TO THE PROCEDURE ROOM AND PLACED IN THE SITTING POSITION. THE AREA WAS CLEANED WITH ALCOHOL. THE PROCEDURE WAS DONE USING ASEPTIC STERILE TECHNIQUE. A TIMEOUT WAS PERFORMED WHERE LATERALITY AND THE SITE OF THE PROCEDURE WERE CHECKED AND CONFIRMED WITH EVERYONE IN THE ROOM. USING A 25-GAUGE NEEDLE, TRIGGER POINTS WERE INJECTED AT THE RIGHT NECK AREA AND RIGHT SHOULDER AREA WITH A TOTAL OF 40 ML OF BUPIVACAINE 0.25% AND KENALOG 40 MG. THE MEDICATIONS WERE VERIFIED WITH THE NURSE. THERE WAS NO EVIDENCE OF BLOOD OR PARESTHESIA DURING THE PROCEDURE. THE PATIENT WAS SENT TO THE RECOVERY ROOM. THE PATIENT WAS MOVING THE EXTREMITIES AND DOING WELL. THERE WERE NO COMPLICATIONS DURING THE PROCEDURE. ESTIMATED BLOOD LOSS WAS LESS THAN 5 ML POST PROCEDURE NOTE THE PROCEDURE DONE WAS DISCUSSED WITH THE PATIENT. THE PATIENT WILL BE SEEN IN A FOLLOW UP IN THE NEXT FEW WEEKS. I AM LOOKING FOR LONG LASTING PAIN RELIEF FOR THE PATIENT WITH THIS INTERVENTION. INSTRUCTIONS WERE GIVEN, QUESTIONS WERE ANSWERED, AND THE PATIENT EXPRESSED UNDERSTANDING AND AGREES WITH THE PLAN. I, ERICK HOWELL, DOCUMENTED THE ABOVE INFORMATION ACTING A SCRIBE FOR DR. LIZ. I HAVE REVIEWED THE ABOVE DOCUMENT, WRITTEN BY ERICK HOWELL, ASSEMBLER SHOW MOTOR, AND I VERIFY THAT IT IS ACCURATE PROCEDURE CODES 17310 INJ TRIGGER POINT 08/11 MUSCL DISPOSITION & COMMUNICATION FOLLOW UP FOLLOW UP WITH PACKAGER HAND (REASON: POST TPI RIGHT NECK AND RIGHT SHOULDER ) ELECTRONICALLY SIGNED BY YARA LIZ MD, MD ON 06/04/2020 AT 02:46 PM EDT DISCLAIMER : THIS IS A VISIT SUMMARY EXTRACTED FROM THE [employer] CHART. IT IS NOT A COPY OF THE [employer] PROGRESS NOTE. CHIP
== END ==
LOC: M PAIN 08:30
PROVIDERS: ATTEND Anesthesiology
DX: M79.18 Myalgia, other site (principal); G40.909 Epilepsy, unspecified, not intractable, without status epilepticus; J45.909 Unspecified asthma, uncomplicated; E66.01 Morbid (severe) obesity due to excess calories; F32.9 Major depressive disorder, single episode, unspecified; F41.9 Anxiety disorder, unspecified; M79.7 Fibromyalgia; K59.09 Other constipation; G43.109 Migraine with aura, not intractable, without status migrainosus; Z79.891 Long term (current) use of opiate analgesic; Z79.899 Other long term (current) drug therapy; Z68.30 Body mass index [BMI] 30.0-30.9, adult; Z88.1 Allergy status to other antibiotic agents; Z88.5 Allergy status to narcotic agent; Z88.8 Allergy status to other drugs, medicaments and biological substances; Z91.018 Allergy to other foods
CPT/HCPCS: 20552; J3301

== ENCOUNTER → 2020-06-18 | Outpatient (CLI) | payer MEDICARE, MEDICAID ==
[~2020-06-18] MED LIST changes: -BUPIVACAINE HCL 0.25% 10ML VIAL As Ordered ONE; -BUPIVACAINE HCL 0.25% 30ML VIAL As Ordered ONE; -TRIAMCINOLONE ACETONIDE SUSP 40 MG/ML VIAL (J3301) As Ordered ONE; -diazePAM 5 MG TAB As Ordered ONE
--- NOTE | 2020-06-20 04:26 | ECWPNPC ---
PATIENT NAME: TIFFANIE HUFF : 1980 GENDER: FEMALE VISIT DATE: 06/18/2020 DISCHARGE DATE: 06/18/20 1001 VISIT LOCKED DATE TIME: PHYSICIAN: LILIA HERNANDEZ RESOURCE: LILIA HERNANDEZ REASON FOR APPOINTMENT 1. POST TPI UPPER BACK/NECK HISTORY OF PRESENT ILLNESS PAIN CENTER INTAKE QUESTIONS: DO YOU HAVE A HISTORY OF MRSA? :NO DO YOU TAKE A BLOOD THINNERS? :NO DO YOU HAVE ANY BLEEDING DISORDERS? :NO ANY NEW NUMBNESS OR WEAKNESS IN YOUR LEGS OR ARMS? :NO ANY PACEMAKER,DEFIBRILLATOR, OR DORSAL COLUMN STIMULATOR? :NO DO YOU HAVE ANY RASHES OR OPEN SORES? :NO ARE YOU ALLERGIC TO IV DYE? :NO ARE YOU DIABETIC? :NO ANY NEW PROBLEMS WITH YOUR MEDICATIONS? :NO HAVE YOU RECEIVED A VACCINE IN THE PAST 30 DAYS? :YES IF SO WHAT VACCINE AND WHEN? ALLERGY INJECTIONS 06/11/20 DO YOU PLAN TO RECEIVE A VACCINE IN THE NEXT 21 DAYS? :YES IF SO WHAT VACCINE AND WHEN? 07/02/20 ALLERGY INJECTIONS DO YOU NEED ANY PRESCRIPTION? :YES WILL DISCUSS DO YOU TAKE ANY IMMUNOSUPPRESSIVE MEDICATIONS? :NO IS THERE A CHANCE YOU COULD BE ? :NO ARE YOU BREAST FEEDING? :NO GENERAL: HERE FOR POST PROCEDURE FOLLOW-UP. HAD TRIGGER POINT INJECTIONS TO RIGHT NECK AND RIGHT SHOULDER ON 06/04/2020. REPORTING 2-3 WEEKS OF IMPROVEMENT AND THEN PAIN HAS GRADUALLY RETURNED BUT CONTINUES TO BENEFIT SOME TODAY FROM THE PROCEDURE. REVIEWED MRI OF THE CERVICAL SPINE. DISCUSSED TREATMENT PLAN. -. FALL RISK SCREENING: SCREENING :NO FALLS REPORTED IN THE LAST YEAR PAIN SCREENING: PATIENT HAS A COMPLAINT OF ACUTE OR CHRONIC PAIN :YES LOCATION OF PAIN:NECK, UPPER BACK INTENSITY OF PAIN (SCALE OF 1 TO 10):5 WHAT DOES YOUR PAIN FEEL LIKE:BURNING, SHARP DURATION:INTERMITTENT PAIN IS INCREASED BY:ACTIVITIES PAIN IS DECREASED BY:OTHERS INJECTIONS LEVEL OF RELIEF FROM PAIN TREATMENTS IN THE PAST:50% PAIN HAS INTERFERED WITH THE FOLLOWING: NO NURSING NOTE: -. CURRENT MEDICATIONS TAKING GABAPENTIN 300 MG CAPSULE 1 CAPSULE ORALLY ONCE A DAY TAKING CYMBALTA 30 MG CAPSULE DELAYED RELEASE PARTICLES 2 CAPS ORALLY ONCE A DAY TAKING TEGRETOL 200 MG TABLET 3 TABLET ORALLY TWICE A DAY TAKING ZYRTEC 1 TAB ORAL DAILY TAKING DEDE 1 TAB ORALLY 180 MG DAILY TAKING LEVOCETIRIZINE DIHYDROCHLORIDE 5 MG TABLET 1 TABLET IN THE EVENING ORALLY ONCE A DAY TAKING DYMISTA NASAL SPRAY AZELASTINE HYRDOCHLORIDE 137MCG & FLUTICASONE PROPIONATE 50MCG( SOLUTION ONE SPRAY PER NOSTRIL NASALLLY TWICE DAILY TAKING LINZESS 290 MCG CAPSULE ONE P.O. ONCE DAILY NEEDED TAKING VIMPAT 200 MG TABLET 1 CAP ORALLY TWICE A DAY TAKING BOTOX 200 UNIT SOLUTION RECONSTITUTED INJECTION EVERY 3 MONTHS TAKING AIMOVIG 70 MG/ML SOLUTION AUTO-INJECTOR DIRECTED SUBCUTANEOUS MONTHLY NOT-TAKING HYDROCODONE-ACETAMINOPHEN 5-325 MG TABLET 1 TABLET NEEDED ORALLY EVERY 8 HRS NOT-TAKING DEXILANT 60 MG CAPSULE DELAYED RELEASE 1 CAPSULE ORALLY ONCE A DAY NOT-TAKING CANDESARTAN CILEXETIL 32 MG TABLET 1 TABLET ORALLY ONCE A DAY, NOTES: 07/19/191999 NOT-TAKING LEVOTHROID 25 MCG TABLET 1 TABLET ON AN EMPTY STOMACH IN THE MORNING P.O. ONCE A DAY NOT-TAKING FEXOFENADINE HCL 180 MG TABLET 1 TABLET P.O. ONCE A DAY NOT-TAKING FLUTICASONE FUROATE 27.5 MCG/SPRAY SUSPENSION 2 PUFFS NASALLY ONCE A DAY NOT-TAKING SUDAFED 30 MG TABLET 1 TABLET NEEDED ORALLY EVERY 6 HRS MEDICATION LIST REVIEWED AND RECONCILED WITH THE PATIENT PAST MEDICAL HISTORY EPILEPSY ALLERGIES-SEASONAL ASTHMA MOBID OBESITY DEPRESSION ANXIETY CHRONIC PAIN FIBROMYALGIA CHRONIC CONSTIPATION NECK AND LOW BACK MIGRAINES WITH AURA ALLERGIES RASPBERRY: DYSPNEA - ALLERGY CIPRO: ANAPHYLAXIS - ALLERGY NITROFURANTOIN: ANAPHYLAXIS - ALLERGY CEFOTETAN DISODIUM: HIVES - ALLERGY ERYTHROMYCIN: HIVES - ALLERGY TREE NUTS: ANAPHYLAXIS - ALLERGY CAT & DOG: SNEEZING - ALLERGY MOLD: SNEEZING - ALLERGY CEFTIN: HIVES - ALLERGY FENTANYL: CHEST PAIN - ALLERGY CODEINE SULFATE: COULD INCREASE SEIZURE ACTIVITY - CONTRAINDICATION TRAMADOL HCL: COULD INCREASE SEIZURE ACTIVITY - CONTRAINDICATION TOPAMAX: SUICIDAL - SIDE EFFECTS SURGICAL HISTORY CHOLECYSTECTOMY 04/2012 LIGAMENT REPAIR ON LEFT ANKLE AGE 18 LIGAMENT ON LEFT WRIST AGE 18 LIGAMENT REPAIR ON RIGHT SHOULDER AGE 18 GASTRIC BYPASS 04/26/19 FAMILY HISTORY FATHER: 67 YRS, LUNG CANCER, SEPSIS MOTHER: ALIVE 58 YRS, CERVICAL CANCER SIBLINGS: ALIVE MATERNAL GRAND MOTHER: , COLON CANCER PATERNAL AUNT: LATE 30'S YRS, BREAST CANCER, DIAGNOSED AT LATE 30 2 SISTER(S) - HEALTHY. 2DAUGHTER(S) - HEALTHY. COLON CA- M.GRANDMOTHERBREAST CANCER- PATERNAL AUNTS X 2FATHER- ASTHMA, COPDSIBLINGS- HEALTHY. SOCIAL HISTORY GENERAL: TOBACCO USE ARE YOU A:: NEVER SMOKER. LATEX QUESTIONNAIRE LATEX ALLERGY : HAVE YOU EVER DEVELOPED ANY TYPE OF REACTION AFTER HANDLING LATEX PRODUCTS SUCH RUBBER GLOVES, CONDOMS, DIAPHRAGMS, BALLOONS, SOCKS, OR UNDERWEAR?NO LATEX ALLERGY : HAVE YOU EVER DEVELOPED ANY TYPE OF REACTION DURING OR AFTER DENTAL APPOINTMENT, VAGINAL/RECTAL EXAMINATION, SURGICAL PROCEDURE, OR ANY OTHER EXPOSURE?NO LATEX RISK : HAVE YOU EVER HAD ANY DIFFICULTY BREATHING OR HIVES AFTER EATING OR HANDLING ANY FRUITS, OR VEGETABLES; SUCH KIWI, BANANAS, STONE FRUITS, OR CHESTNUTSYES - PLEASE INDICATE : TREE NUTS LATEX RISK : DO YOU HAVE A PREVIOUS PERSONAL HISTORY OF MORE THAN NINE SURGERIES, SPINA BIFIDA, OR REPEATED CATHERIZATIONS? NO LATEX RISK : ARE YOU FREQUENTLY EXPOSED TO LATEX PRODUCTS IN YOUR OCCUPATION?NO DATE ASKED : 06/01/2020 ALCOHOL SCREENING DID YOU HAVE A DRINK CONTAINING ALCOHOL IN THE PAST YEAR?YES HOW OFTEN DID YOU HAVE SIX OR MORE DRINKS ON ONE OCCASION IN THE PAST YEAR?NEVER (0 POINTS) HOW MANY DRINKS DID YOU HAVE ON A TYPICAL DAY WHEN YOU WERE DRINKING IN THE PAST YEAR?1 OR 2 (0 POINTS) HOW OFTEN DID YOU HAVE A DRINK CONTAINING ALCOHOL IN THE PAST YEAR?MONTHLY OR LESS (1 POINT) POINTS1 INTERPRETATIONNEGATIVE RECREATIONAL DRUG USE DENIES. CAFFEINE 1-2/DAY. 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 DIET: REGULAR- S/P GASTRIC BYPASS 04/26/19. EXERCISE: USES ELLIPTICAL, TREADMILL, AND BIKE. MARITAL STATUS: SINGLE, WITH PARTNER FOR TEN YEARS. OTHERS AT HOME: CHILDREN. PAIN CLINIC PFS, CLERGY, PUBLIC HEALTH REFERRALS PFS REFERRAL NEEDED?NO CLERGY REFERRAL NEEDED?NO PUBLIC HEALTH REFERRAL NEEDED?NO WAS THE PROVIDER NOTIFIED OF ANY PERTINENT INFO?YES HAS THE PATIENT BEEN EDUCATED REGARDING HIS/HER PLAN OF CARE?YES HAS THE PATIENT BEEN EDUCATED REGARDING PAIN, THE RISK FOR PAIN, THE IMPORTANCE OF EFFECTIVE PAIN MANAGEMENT, AND THE PAIN ASSESSMENT PROCESS?YES HOUSING: OWNS HOME. ADVANCE DIRECTIVE ADVANCE DIRECTIVE DISCUSSED WITH PATIENT:YES ANCELMO BARNETT [phone] (SO) HOSPITALIZATION/MAJOR DIAGNOSTIC PROCEDURE CHILDBIRTH SURGERIES SEIZURES WHEN YOUNGER REVIEW OF SYSTEMS CONSTITUTIONAL: ANY RECENT FEVER NO . CHILLS NO . WEIGHT CHANGE OF UNKNOWN REASONS NO . GASTROENTEROLOGY: NEW UNEXPLAINABLE CHANGES IN BOWEL CONTROL NO . CONSTIPATION NO . GENITOURINARY: ANY NEW CHANGE IN BLADDER CONTROL? NO . NEUROLOGY: NEW ONSET DIZZINESS OR NEUROLOGICAL CHANGES NOT MENTIONED NO . NEW NUMBNESS OR PAIN PATTERNS NOT MENTIONED AND PERTINENT TO TODAY'S VISIT NO . CARDIOLOGY: NEW CHEST PRESSURE NO . NEW CHEST PAIN NO . RESPIRATORY: UNEXPLAINABLE COUGH NO . NEW SHORTNESS OF BREATH NO . VITAL SIGNS WT 176.2 LBS, HT 63.5 IN, BMI 30.72 INDEX, BP 125/65 MM HG, HR 81 /MIN, RR 18 /MIN, TEMP 97.6 F, OXYGEN SAT % 99%, NA INITIALS SC 09:28, REVIEWED BY: EM. EXAMINATION GENERAL EXAMINATION: GENERAL AWAKE,ALERT ,PLEAASANT . PSYCH AFFECT NORMAL . LUNGS: LUNG GONZALEZ ARE CLEAR TO AUSCULTATION BILATERALLY. GOOD MOVEMENT OF AIR . HEART: S1, S2 IN A REGULAR RATE AND RHYTHM. NO SIGNIFICANT MURMURS, RUBS OR GALLOPS NOTED . CERVICAL: TRIGGER POINTS: CERVICAL AND TRAPEZIUS RIGHT..PAIN IS AGGREVATED WITH ROJM NECK TRIGGER POINTS ELICITED RIGHT UPPER BACK/SCAPULAR/RHIMBOID REGION.PAIN IN THIS AREA IS AGGREVATED WITH ROJM NECK AND RIGHT ARM. DIAGNOSTIC TESTS REVIEWED MRI CERVICAL SPINE-02/2018. ASSESSMENTS MYALGIA, OTHER SITE - M79.18 (PRIMARY) OTHER CHRONIC POSTPROCEDURAL PAIN - G89.28 TREATMENT MYALGIA, OTHER SITE NOTES: TRIGGER POINT INJECTIONS RIGHT SCAPULAR/RHOMBOID/UPPER BACK. OTHER CHRONIC POSTPROCEDURAL PAIN PAIN PROCEDURE LOGDATE OF [id number]/26/20PROCEDURE:TRIGGER POINT INJECTIONS R NECK, R SHOULDERAMOUNT OF PRE SEDATEVALIUM 10MGRESULT:MARKED REDUCTION IN PAIN AND IMPROVED ACTIVITY TOLERANCE CONTINUES TODAY. REPORTING PERIODIC SEVERE PAIN EPISODES BEEN OVERDOING. PROCEDURE CODES FA211 ESTABILISHED PATIENT [facility] [place] [facility] CHARGE DISPOSITION & COMMUNICATION FOLLOW UP POST PROCEDURE (REASON: TRIGGER POINT INJECTIONS RIGHT SCAPULAR/RHOMBOID/UPPER BACK) ELECTRONICALLY SIGNED BY ALEM YOUSSEF ON 06/19/2020 AT 03:08 PM EST DISCLAIMER : THIS IS A VISIT SUMMARY EXTRACTED FROM THE [employer] CHART. IT IS NOT A COPY OF THE [employer] PROGRESS NOTE. CHIP
== END ==
LOC: M PAIN 09:30
PROVIDERS: ATTEND Nurse Practitioner Family
DX: G89.28 Other chronic postprocedural pain (principal); M79.18 Myalgia, other site; G40.909 Epilepsy, unspecified, not intractable, without status epilepticus; J45.909 Unspecified asthma, uncomplicated; E66.01 Morbid (severe) obesity due to excess calories; F32.9 Major depressive disorder, single episode, unspecified; F41.9 Anxiety disorder, unspecified; M79.7 Fibromyalgia; K59.09 Other constipation; G43.109 Migraine with aura, not intractable, without status migrainosus; Z79.899 Other long term (current) drug therapy; Z88.1 Allergy status to other antibiotic agents; Z88.5 Allergy status to narcotic agent; Z88.8 Allergy status to other drugs, medicaments and biological substances

== ENCOUNTER → 2020-06-24 | Outpatient (CLI) | payer MEDICARE, MEDICAID | LOC: M LABSMTC 10:01 | PROVIDERS: ATTEND Anesthesiology | DX: Z20.828 Contact with and (suspected) exposure to other viral communicable diseases (principal) ==

== ENCOUNTER → 2020-06-29 | Outpatient (CLI) | payer MEDICARE, MEDICAID ==
[~2020-06-29] MED LIST changes: +BUPIVACAINE HCL 0.25% 10ML VIAL As Ordered ONE; +BUPIVACAINE HCL 0.25% 30ML VIAL As Ordered ONE; +TRIAMCINOLONE ACETONIDE SUSP 40 MG/ML VIAL (J3301) As Ordered ONE; +diazePAM 5 MG TAB As Ordered ONE
--- NOTE | 2020-07-12 02:21 | ECWPNPC ---
PATIENT NAME: TIFFANIE HUFF : 1980 GENDER: FEMALE VISIT DATE: 06/29/2020 DISCHARGE DATE: 06/29/20 1034 VISIT LOCKED DATE TIME: PHYSICIAN: YARA LIZ MD RESOURCE: YARA LIZ MD REASON FOR APPOINTMENT 1. TRIGGER POINT INJECTIONS RIGHT SCAPULAR/RHOMBOID/UPPER BACK HISTORY OF PRESENT ILLNESS GENERAL: -. FALL RISK SCREENING: SCREENING :NO FALLS REPORTED IN THE LAST YEAR PAIN SCREENING: PATIENT HAS A COMPLAINT OF ACUTE OR CHRONIC PAIN :YES LOCATION OF PAIN:RIGHT SHOULDER INTENSITY OF PAIN (SCALE OF 1 TO 10):6 WHAT DOES YOUR PAIN FEEL LIKE:BURNING, STABBING DURATION:INTERMITTENT PAIN IS INCREASED BY:ACTIVITIES PAIN IS DECREASED BY:OTHERS INJECTIONS TREATMENT/MEDICATIONS USED TO MANAGE PAIN:OTC PAIN RELIEVERS LEVEL OF RELIEF FROM PAIN TREATMENTS IN THE PAST:50% PAIN HAS INTERFERED WITH THE FOLLOWING:BATHING/DRESSING, WALKING ABILITY, HOUSEWORK, SLEEP, TRANSPORTATION, TOILETING NURSING NOTE: -. PAIN CENTER INTAKE QUESTIONS: DO YOU HAVE A HISTORY OF MRSA? :NO DO YOU TAKE A BLOOD THINNERS? :NO DO YOU HAVE ANY BLEEDING DISORDERS? :NO ANY NEW NUMBNESS OR WEAKNESS IN YOUR LEGS OR ARMS? :NO ANY PACEMAKER,DEFIBRILLATOR, OR DORSAL COLUMN STIMULATOR? :NO DO YOU HAVE ANY RASHES OR OPEN SORES? :NO ARE YOU ALLERGIC TO IV DYE? :NO ARE YOU DIABETIC? :NO ANY NEW PROBLEMS WITH YOUR MEDICATIONS? :NO HAVE YOU RECEIVED A VACCINE IN THE PAST 30 DAYS? :NO DO YOU PLAN TO RECEIVE A VACCINE IN THE NEXT 21 DAYS? :YES IF SO WHAT VACCINE AND WHEN? ALLERGY INJECTIONS NEXT WEEK, AIMOVIG INJECTION FOR MIGRAINES DO YOU TAKE ANY IMMUNOSUPPRESSIVE MEDICATIONS? :NO ANY HISTORY OF SEIZURES? :YES LAST SEIZURE 2016 ANY HISTORY OF CARDIAC ISSUES OR EVENTS? :NO DO YOU HAVE SLEEP APNEA? :NO ANY RECENT HEAD INJURY? :NO DO YOU HAVE ANY NEW INFECTIONS? :NO IS THERE A CHANCE YOU COULD BE ? :NO ARE YOU BREAST FEEDING? :NO WHEN DID YOU LAST EAT? : -06/28/201999 WHEN DID YOU LAST DRINK? : -06/28/201999 WHAT DID YOU LAST DRINK? : -WATER NAME OF PERSON DRIVING YOU HOME? : -MOM DO YOU HAVE ANY OTHER QUESTIONS OR CONCERNS? : -NO CURRENT MEDICATIONS TAKING GABAPENTIN 300 MG CAPSULE 1 CAPSULE ORALLY ONCE A DAY, NOTES: 06/28/20 TAKING CYMBALTA 30 MG CAPSULE DELAYED RELEASE PARTICLES 2 CAPS ORALLY ONCE A DAY, NOTES: 06/28/20 TAKING TEGRETOL 200 MG TABLET 3 TABLET ORALLY TWICE A DAY, NOTES: 06/28/20 TAKING ZYRTEC 1 TAB ORAL DAILY, NOTES: 06/28/20 TAKING DEDE 1 TAB ORALLY 180 MG DAILY, NOTES: 06/28/20 TAKING LEVOCETIRIZINE DIHYDROCHLORIDE 5 MG TABLET 1 TABLET IN THE EVENING ORALLY ONCE A DAY, NOTES: 06/28/20 TAKING DYMISTA NASAL SPRAY AZELASTINE HYRDOCHLORIDE 137MCG & FLUTICASONE PROPIONATE 50MCG( SOLUTION ONE SPRAY PER NOSTRIL NASALLLY TWICE DAILY, NOTES: 06/28/20 TAKING LINZESS 290 MCG CAPSULE ONE P.O. ONCE DAILY NEEDED, NOTES: 06/28/20 TAKING VIMPAT 200 MG TABLET 1 CAP ORALLY TWICE A DAY, NOTES: 06/28/20 TAKING BOTOX 200 UNIT SOLUTION RECONSTITUTED INJECTION EVERY 3 MONTHS, NOTES: 06/28/20 TAKING AIMOVIG 70 MG/ML SOLUTION AUTO-INJECTOR DIRECTED SUBCUTANEOUS MONTHLY, NOTES: 06/28/20 NOT-TAKING HYDROCODONE-ACETAMINOPHEN 5-325 MG TABLET 1 TABLET NEEDED ORALLY EVERY 8 HRS NOT-TAKING DEXILANT 60 MG CAPSULE DELAYED RELEASE 1 CAPSULE ORALLY ONCE A DAY NOT-TAKING CANDESARTAN CILEXETIL 32 MG TABLET 1 TABLET ORALLY ONCE A DAY, NOTES: 07/19/191999 NOT-TAKING LEVOTHROID 25 MCG TABLET 1 TABLET ON AN EMPTY STOMACH IN THE MORNING P.O. ONCE A DAY NOT-TAKING FEXOFENADINE HCL 180 MG TABLET 1 TABLET P.O. ONCE A DAY NOT-TAKING FLUTICASONE FUROATE 27.5 MCG/SPRAY SUSPENSION 2 PUFFS NASALLY ONCE A DAY NOT-TAKING SUDAFED 30 MG TABLET 1 TABLET NEEDED ORALLY EVERY 6 HRS MEDICATION LIST REVIEWED AND RECONCILED WITH THE PATIENT PAST MEDICAL HISTORY EPILEPSY ALLERGIES-SEASONAL ASTHMA MOBID OBESITY DEPRESSION ANXIETY CHRONIC PAIN FIBROMYALGIA CHRONIC CONSTIPATION NECK AND LOW BACK MIGRAINES WITH AURA ALLERGIES RASPBERRY: DYSPNEA - ALLERGY CIPRO: ANAPHYLAXIS - ALLERGY NITROFURANTOIN: ANAPHYLAXIS - ALLERGY CEFOTETAN DISODIUM: HIVES - ALLERGY ERYTHROMYCIN: HIVES - ALLERGY TREE NUTS: ANAPHYLAXIS - ALLERGY CAT & DOG: SNEEZING - ALLERGY MOLD: SNEEZING - ALLERGY CEFTIN: HIVES - ALLERGY FENTANYL: CHEST PAIN - ALLERGY CODEINE SULFATE: COULD INCREASE SEIZURE ACTIVITY - CONTRAINDICATION TRAMADOL HCL: COULD INCREASE SEIZURE ACTIVITY - CONTRAINDICATION TOPAMAX: SUICIDAL - SIDE EFFECTS SURGICAL HISTORY CHOLECYSTECTOMY 04/2012 LIGAMENT REPAIR ON LEFT ANKLE AGE 18 LIGAMENT ON LEFT WRIST AGE 18 LIGAMENT REPAIR ON RIGHT SHOULDER AGE 18 GASTRIC BYPASS 04/26/19 FAMILY HISTORY FATHER: 67 YRS, LUNG CANCER, SEPSIS MOTHER: ALIVE 58 YRS, CERVICAL CANCER SIBLINGS: ALIVE MATERNAL GRAND MOTHER: , COLON CANCER PATERNAL AUNT: LATE 30'S YRS, BREAST CANCER, DIAGNOSED AT LATE 30 2 SISTER(S) - HEALTHY. 2DAUGHTER(S) - HEALTHY. COLON CA- M.GRANDMOTHERBREAST CANCER- PATERNAL AUNTS X 2FATHER- ASTHMA, COPDSIBLINGS- HEALTHY. SOCIAL HISTORY GENERAL: TOBACCO USE ARE YOU A:: NEVER SMOKER. LATEX QUESTIONNAIRE LATEX ALLERGY : HAVE YOU EVER DEVELOPED ANY TYPE OF REACTION AFTER HANDLING LATEX PRODUCTS SUCH RUBBER GLOVES, CONDOMS, DIAPHRAGMS, BALLOONS, SOCKS, OR UNDERWEAR?NO LATEX ALLERGY : HAVE YOU EVER DEVELOPED ANY TYPE OF REACTION DURING OR AFTER DENTAL APPOINTMENT, VAGINAL/RECTAL EXAMINATION, SURGICAL PROCEDURE, OR ANY OTHER EXPOSURE?NO LATEX RISK : HAVE YOU EVER HAD ANY DIFFICULTY BREATHING OR HIVES AFTER EATING OR HANDLING ANY FRUITS, OR VEGETABLES; SUCH KIWI, BANANAS, STONE FRUITS, OR CHESTNUTSYES - PLEASE INDICATE : TREE NUTS LATEX RISK : DO YOU HAVE A PREVIOUS PERSONAL HISTORY OF MORE THAN NINE SURGERIES, SPINA BIFIDA, OR REPEATED CATHERIZATIONS? NO LATEX RISK : ARE YOU FREQUENTLY EXPOSED TO LATEX PRODUCTS IN YOUR OCCUPATION?NO DATE ASKED : 06/01/2020 ALCOHOL SCREENING DID YOU HAVE A DRINK CONTAINING ALCOHOL IN THE PAST YEAR?NO POINTS0 INTERPRETATIONNEGATIVE RECREATIONAL DRUG USE DENIES. CAFFEINE 1-2/DAY. 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 DIET: REGULAR- S/P GASTRIC BYPASS 04/26/19. EXERCISE: USES ELLIPTICAL, TREADMILL, AND BIKE. MARITAL STATUS: SINGLE, WITH PARTNER FOR TEN YEARS. OTHERS AT HOME: CHILDREN. PAIN CLINIC PFS, CLERGY, PUBLIC HEALTH REFERRALS PFS REFERRAL NEEDED?NO CLERGY REFERRAL NEEDED?NO PUBLIC HEALTH REFERRAL NEEDED?NO WAS THE PROVIDER NOTIFIED OF ANY PERTINENT INFO?YES HAS THE PATIENT BEEN EDUCATED REGARDING HIS/HER PLAN OF CARE?YES HAS THE PATIENT BEEN EDUCATED REGARDING PAIN, THE RISK FOR PAIN, THE IMPORTANCE OF EFFECTIVE PAIN MANAGEMENT, AND THE PAIN ASSESSMENT PROCESS?YES HOUSING: OWNS HOME. ADVANCE DIRECTIVE ADVANCE DIRECTIVE DISCUSSED WITH PATIENT:YES ANCELMO BARNETT [phone] (SO) HOSPITALIZATION/MAJOR DIAGNOSTIC PROCEDURE CHILDBIRTH SURGERIES SEIZURES WHEN YOUNGER VITAL SIGNS WT 175.2 LBS, HT 63.5 IN, BMI 30.55 INDEX, BP 118/55 MM HG, HR 85 /MIN, RR 18 /MIN, TEMP 97.5 F, OXYGEN SAT % 97%, SAFE IN ENV? (Y/N) Y, NA INITIALS AW 0917, REVIEWED BY: RONNIE. EXAMINATION GENERAL EXAMINATION: THE PATIENT IS ALERT, ORIENTED TIMES THREE AND COOPERATIVE. HEART SHOWS REGULAR RHYTHM, NO MURMURS AND NO GALLOPS. LUNGS ARE CLEAR TO AUSCULTATION. ASSESSMENTS MYALGIA, OTHER SITE - M79.18 (PRIMARY) TREATMENT MYALGIA, OTHER SITE MEDICATION: VALIUM TAB 10MG ORALLY (DIAZEPAM)ANA MARÍA WILLAMS 06/29/2020 9:37:07 AM > LOT [id number], EXP02/2021 MARCOS HIGGINS Bruna 06/29/2020 9:37:33 AM > VERIFIED ANA MARÍA WILLAMS 06/29/2020 9:39:40 AM > ADMINISTERED PROCEDURES PAIN NURSING RECORD PRE-PROCEDURE IV SITE N/A, PRE-PROCEDURE ORAL MEDICATIONS VALIUM 10MG PROCEDURE IN ROOM 0930, PHYSICIAN IN ROOM 1012, START 1015, FINISH 1018, PHYSICIAN OUT OF ROOM 1018, OUT OF ROOM 1034, STEROID N/A, O2 RA, ECG N/A, PATIENT SHIELDED NO, SAFETY STRAP NO, PREP ALCOHOL, IV INFUSED N/A, DRESSING TEGADERM LOC: ANA MARÍA WILLAMS 06/29/2020 10:16:06 AM > , 1. ALERT, ORIENTED RESP: ANA MARÍA WILLAMS 06/29/2020 10:16:13 AM > , 1. REGULAR, NO DYSPNEA COLOR: ANA MARÍA WILLAMS 06/29/2020 10:16:18 AM > , 1. PINK SKIN: ANA MARÍA WILLAMS 06/29/2020 10:16:24 AM > , 1. WARM, DRY POSITION: ANA MARÍA WILLAMS 06/29/2020 10:16:28 AM > , 4. OTHER VITALS: ANA MARÍA WILLAMS 06/29/2020 10:28:09 AM > 78, 16, 100%, 116/55 DISCHARGE: POST PAIN 6, DRESSING SITE DRY AND INTACT, IV N/A, GAIT STEADY, TEACHING COMPLETED, PATIENT ACKNOWLEDGES UNDERSTANDING YES, PATIENT DISCHARGED AT 1034 PN TRIGGER POINT INJECTION NO STEROIDS PRE PROCEDURE DIAGNOSIS 1. MYALGIA 2. PAIN AT RIGHT THORACIC AREA POST PROCEDURE DIAGNOSIS 1. MYALGIA 2. PAIN AT RIGHT THORACIC AREA PROCEDURE TRIGGER POINT INJECTION AT RIGHT THORACIC AREA SURGEON DR. YARA LIZ THERAPEUTIC RECREATION SPECIALIST NONE ANESTHESIA LOCAL PRE PROCEDURE NOTE THE PATIENT WITH HISTORY OF CHRONIC PAIN AT RIGHT THORACIC AREA. I EVALUATED THE PATIENT AND REVIEWED THE CHART. THERE IS EVIDENCE OF BANDS OF TISSUE WITH RESTRICTION OF MOVEMENT AND PRESENCE OF TRIGGER POINT AT THE RIGHT THORACIC AREA. I WENT OVER THE RISKS, ALTERNATIVES, AND BENEFITS ASSOCIATED WITH THIS PROCEDURE. THE PATIENT WOULD LIKE TO PROCEED AND GAVE CONSENT TO PERFORM THE PROCEDURE. THE PATIENT DENIES UNEXPLAINABLE WEIGHT LOSS, FEVER, CHILLS, OR NEW CHANGES IN URINARY OR BOWEL CONTROL. THE PATIENT IS COVID-19 NEGATIVE DESCRIPTION OF PROCEDURE THE PATIENT WAS BROUGHT TO THE PROCEDURE ROOM AND PLACED IN THE SITTING POSITION. THE AREA WAS CLEANED WITH ALCOHOL. THE PROCEDURE WAS DONE USING ASEPTIC STERILE TECHNIQUES. I CHECKED LATERALITY AND THE LEVEL WHERE THE PROCEDURE WAS GOING TO BE PERFORMED WITH THE PATIENT AND THE SUPPORTING STAFF AT THE MOMENT OF THE TIME OUT IN THE PROCEDURE ROOM. USING A 25-GAUGE NEEDLE, TRIGGER POINTS WERE INJECTED INTO THE RIGHT THORACIC AREA WITH A TOTAL OF 40 ML OF BUPIVACAINE 0.25%. AGREED WITH THE PATIENT THE PROCEDURE WAS DONE WITHOUT STEROIDS. THERE WAS NO EVIDENCE OF BLOOD, PARESTHESIA OR CEREBROSPINAL FLUID DURING THE PROCEDURE. THE PATIENT WAS SENT TO THE RECOVERY ROOM. THE PATIENT WAS MOVING THE EXTREMITIES AND DOING WELL. THERE WAS NO COMPLICATION DURING THE PROCEDURE. EBL LESS THAN 5 ML. POST PROCEDURE NOTE THE PROCEDURE DONE WAS DISCUSSED WITH THE PATIENT. THE PATIENT WILL BE SEEN IN A FOLLOW UP IN THE NEXT FEW WEEKS. I AM LOOKING FOR LONG LASTING PAIN RELIEF FOR THE PATIENT WITH THIS INTERVENTION. INSTRUCTIONS WERE GIVEN, QUESTIONS WERE ANSWERED, AND THE PATIENT EXPRESSED UNDERSTANDING AND AGREES WITH THE PLAN. I, ERICK HOWELL, DOCUMENTED THE ABOVE INFORMATION ACTING A SCRIBE FOR DR. LIZ. I HAVE REVIEWED THE ABOVE DOCUMENT, WRITTEN BY ERICK HOWELL, CONFIGURATION MANAGEMENT CONSULTANT, AND I VERIFY THAT IT IS ACCURATE PROCEDURE CODES 62673 INJ TRIGGER POINT 08/11 [facility] DISPOSITION & COMMUNICATION FOLLOW UP FOLLOW UP WITH CHAR PULLER (REASON: POST TPI RIGHT THORACIC) ELECTRONICALLY SIGNED BY YARA LIZ MD, MD ON 07/11/2020 AT 09:16 AM EST DISCLAIMER : THIS IS A VISIT SUMMARY EXTRACTED FROM THE [employer] CHART. IT IS NOT A COPY OF THE [employer] PROGRESS NOTE. CHIP
== END ==
LOC: M PAIN 09:15
PROVIDERS: ATTEND Anesthesiology
DX: M79.18 Myalgia, other site (principal); G40.909 Epilepsy, unspecified, not intractable, without status epilepticus; J45.909 Unspecified asthma, uncomplicated; E66.01 Morbid (severe) obesity due to excess calories; F32.9 Major depressive disorder, single episode, unspecified; F41.9 Anxiety disorder, unspecified; G89.29 Other chronic pain; M79.7 Fibromyalgia; K59.09 Other constipation; G43.109 Migraine with aura, not intractable, without status migrainosus; Z79.899 Other long term (current) drug therapy; Z88.1 Allergy status to other antibiotic agents; Z88.5 Allergy status to narcotic agent; Z88.8 Allergy status to other drugs, medicaments and biological substances; Z91.018 Allergy to other foods; Z68.30 Body mass index [BMI] 30.0-30.9, adult

== ENCOUNTER → 2020-07-13 | Outpatient (CLI) | payer MEDICARE, MEDICAID ==
[~2020-07-13] MED LIST changes: -BUPIVACAINE HCL 0.25% 10ML VIAL As Ordered ONE; -BUPIVACAINE HCL 0.25% 30ML VIAL As Ordered ONE; -TRIAMCINOLONE ACETONIDE SUSP 40 MG/ML VIAL (J3301) As Ordered ONE; -diazePAM 5 MG TAB As Ordered ONE
--- NOTE | 2020-07-17 03:06 | ECWPNPC ---
PATIENT NAME: TIFFANIE HUFF : 1980 GENDER: FEMALE VISIT DATE: 07/13/2020 DISCHARGE DATE: 07/13/20 1031 VISIT LOCKED DATE TIME: PHYSICIAN: LILIA HERNANDEZ RESOURCE: LILIA HERNANDEZ REASON FOR APPOINTMENT 1. POST TRIGGER POINT INJECTIONS RIGHT SCAPULAR/RHOMBOID/UPPER BACK HISTORY OF PRESENT ILLNESS GENERAL: HERE FOR POST PROCEDURE FOLLOW-UP. HAD TRIGGER POINT INJECTIONS RIGHT THORACIC REGION ON 06/29/2020. REPORTING ABOUT ONE WEEK OF IMPROVEMENT POST PROCEDURE THEN PAIN GRADUALLY RETURNED TO BASELINE. REPORTING SIGNIFICANT PAIN IN RIGHT UPPER BACK/SCAPULAR REGION. HISTORY OF RIGHT SHOULDER SURGERY A TEENAGER AFTER TRAUMA OF FALLING OFF A TRAMPOLINE. DID WELL AFTER RIGHT SHOULDER SURGERY AT TIME OF INJURY UNTIL THE PAST YEAR. WAS SEEN BY ORTHOPEDIC GROUP HERE LOCALLY OVER A YEAR AGO AND ATTENDED PHYSICAL THERAPY WITHOUT IMPROVEMENT. DISCUSSED REFERRING TO [facility] FOR EVALUATION.-. FALL RISK SCREENING: SCREENING :NO FALLS REPORTED IN THE LAST YEAR PAIN SCREENING: PATIENT HAS A COMPLAINT OF ACUTE OR CHRONIC PAIN :YES LOCATION OF PAIN:RIGHT SHOULDER INTENSITY OF PAIN (SCALE OF 1 TO 10):6 WHAT DOES YOUR PAIN FEEL LIKE:ACHING, BURNING, STABBING DURATION:CONTINOUS, CONSTANT PAIN IS INCREASED BY:ACTIVITIES PAIN IS DECREASED BY:OTHERS NOTHING TREATMENT/MEDICATIONS USED TO MANAGE PAIN:OTC PAIN RELIEVERS LEVEL OF RELIEF FROM PAIN TREATMENTS IN THE PAST:0% PAIN HAS INTERFERED WITH THE FOLLOWING:BATHING/DRESSING, WALKING ABILITY, HOUSEWORK, TRANSPORTATION, TOILETING NURSING NOTE: -. PAIN CENTER INTAKE QUESTIONS: DO YOU HAVE A HISTORY OF MRSA? :NO DO YOU TAKE A BLOOD THINNERS? :NO DO YOU HAVE ANY BLEEDING DISORDERS? :NO ANY NEW NUMBNESS OR WEAKNESS IN YOUR LEGS OR ARMS? :NO ANY PACEMAKER,DEFIBRILLATOR, OR DORSAL COLUMN STIMULATOR? :NO DO YOU HAVE ANY RASHES OR OPEN SORES? :NO ARE YOU ALLERGIC TO IV DYE? :NO ARE YOU DIABETIC? :NO ANY NEW PROBLEMS WITH YOUR MEDICATIONS? :NO HAVE YOU RECEIVED A VACCINE IN THE PAST 30 DAYS? :NO DO YOU PLAN TO RECEIVE A VACCINE IN THE NEXT 21 DAYS? :YES IF SO WHAT VACCINE AND WHEN? ALLERGY INJECTION DO YOU NEED ANY PRESCRIPTION? :NO DO YOU TAKE ANY IMMUNOSUPPRESSIVE MEDICATIONS? :NO IS THERE A CHANCE YOU COULD BE ? :NO ARE YOU BREAST FEEDING? :NO CURRENT MEDICATIONS TAKING GABAPENTIN 300 MG CAPSULE 1 CAPSULE ORALLY ONCE A DAY TAKING CYMBALTA 30 MG CAPSULE DELAYED RELEASE PARTICLES 2 CAPS ORALLY ONCE A DAY TAKING TEGRETOL 200 MG TABLET 3 TABLET ORALLY TWICE A DAY TAKING ZYRTEC 1 TAB ORAL DAILY TAKING DEDE 1 TAB ORALLY 180 MG DAILY TAKING LEVOCETIRIZINE DIHYDROCHLORIDE 5 MG TABLET 1 TABLET IN THE EVENING ORALLY ONCE A DAY TAKING DYMISTA NASAL SPRAY AZELASTINE HYRDOCHLORIDE 137MCG & FLUTICASONE PROPIONATE 50MCG( SOLUTION ONE SPRAY PER NOSTRIL NASALLLY TWICE DAILY TAKING LINZESS 290 MCG CAPSULE ONE P.O. ONCE DAILY NEEDED TAKING VIMPAT 200 MG TABLET 1 CAP ORALLY TWICE A DAY TAKING BOTOX 200 UNIT SOLUTION RECONSTITUTED INJECTION EVERY 3 MONTHS TAKING AIMOVIG 70 MG/ML SOLUTION AUTO-INJECTOR DIRECTED SUBCUTANEOUS MONTHLY NOT-TAKING HYDROCODONE-ACETAMINOPHEN 5-325 MG TABLET 1 TABLET NEEDED ORALLY EVERY 8 HRS NOT-TAKING DEXILANT 60 MG CAPSULE DELAYED RELEASE 1 CAPSULE ORALLY ONCE A DAY NOT-TAKING CANDESARTAN CILEXETIL 32 MG TABLET 1 TABLET ORALLY ONCE A DAY, NOTES: 07/19/191999 NOT-TAKING LEVOTHROID 25 MCG TABLET 1 TABLET ON AN EMPTY STOMACH IN THE MORNING P.O. ONCE A DAY NOT-TAKING FEXOFENADINE HCL 180 MG TABLET 1 TABLET P.O. ONCE A DAY NOT-TAKING FLUTICASONE FUROATE 27.5 MCG/SPRAY SUSPENSION 2 PUFFS NASALLY ONCE A DAY NOT-TAKING SUDAFED 30 MG TABLET 1 TABLET NEEDED ORALLY EVERY 6 HRS MEDICATION LIST REVIEWED AND RECONCILED WITH THE PATIENT PAST MEDICAL HISTORY EPILEPSY ALLERGIES-SEASONAL ASTHMA MOBID OBESITY DEPRESSION ANXIETY CHRONIC PAIN FIBROMYALGIA CHRONIC CONSTIPATION NECK AND LOW BACK MIGRAINES WITH AURA ALLERGIES RASPBERRY: DYSPNEA - ALLERGY CIPRO: ANAPHYLAXIS - ALLERGY NITROFURANTOIN: ANAPHYLAXIS - ALLERGY CEFOTETAN DISODIUM: HIVES - ALLERGY ERYTHROMYCIN: HIVES - ALLERGY TREE NUTS: ANAPHYLAXIS - ALLERGY CAT & DOG: SNEEZING - ALLERGY MOLD: SNEEZING - ALLERGY CEFTIN: HIVES - ALLERGY FENTANYL: CHEST PAIN - ALLERGY CODEINE SULFATE: COULD INCREASE SEIZURE ACTIVITY - CONTRAINDICATION TRAMADOL HCL: COULD INCREASE SEIZURE ACTIVITY - CONTRAINDICATION TOPAMAX: SUICIDAL - SIDE EFFECTS SURGICAL HISTORY CHOLECYSTECTOMY 04/2012 LIGAMENT REPAIR ON LEFT ANKLE AGE 18 LIGAMENT ON LEFT WRIST AGE 18 LIGAMENT REPAIR ON RIGHT SHOULDER AGE 18 GASTRIC BYPASS 9/17/19 FAMILY HISTORY FATHER: 67 YRS, LUNG CANCER, SEPSIS MOTHER: ALIVE 58 YRS, CERVICAL CANCER SIBLINGS: ALIVE MATERNAL GRAND MOTHER: , COLON CANCER PATERNAL AUNT: LATE 30'S YRS, BREAST CANCER, DIAGNOSED AT LATE 30 2 SISTER(S) - HEALTHY. 2DAUGHTER(S) - HEALTHY. COLON CA- M.GRANDMOTHERBREAST CANCER- PATERNAL AUNTS X 2FATHER- ASTHMA, COPDSIBLINGS- HEALTHY. SOCIAL HISTORY GENERAL: TOBACCO USE ARE YOU A:: NEVER SMOKER. LATEX QUESTIONNAIRE LATEX ALLERGY : HAVE YOU EVER DEVELOPED ANY TYPE OF REACTION AFTER HANDLING LATEX PRODUCTS SUCH RUBBER GLOVES, CONDOMS, DIAPHRAGMS, BALLOONS, SOCKS, OR UNDERWEAR?NO LATEX ALLERGY : HAVE YOU EVER DEVELOPED ANY TYPE OF REACTION DURING OR AFTER DENTAL APPOINTMENT, VAGINAL/RECTAL EXAMINATION, SURGICAL PROCEDURE, OR ANY OTHER EXPOSURE?NO DATE ASKED : 06/01/2020 LATEX RISK : HAVE YOU EVER HAD ANY DIFFICULTY BREATHING OR HIVES AFTER EATING OR HANDLING ANY FRUITS, OR VEGETABLES; SUCH KIWI, BANANAS, STONE FRUITS, OR CHESTNUTSYES - PLEASE INDICATE : TREE NUTS LATEX RISK : DO YOU HAVE A PREVIOUS PERSONAL HISTORY OF MORE THAN NINE SURGERIES, SPINA BIFIDA, OR REPEATED CATHERIZATIONS? NO LATEX RISK : ARE YOU FREQUENTLY EXPOSED TO LATEX PRODUCTS IN YOUR OCCUPATION?NO ALCOHOL SCREENING DID YOU HAVE A DRINK CONTAINING ALCOHOL IN THE PAST YEAR?NO POINTS0 INTERPRETATIONNEGATIVE RECREATIONAL DRUG USE DENIES. CAFFEINE 1-2/DAY. 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 DIET: REGULAR- S/P GASTRIC BYPASS 04/26/19. EXERCISE: USES ELLIPTICAL, TREADMILL, AND BIKE. MARITAL STATUS: SINGLE, WITH PARTNER FOR TEN YEARS. OTHERS AT HOME: CHILDREN. PAIN CLINIC PFS, CLERGY, PUBLIC HEALTH REFERRALS PFS REFERRAL NEEDED?NO CLERGY REFERRAL NEEDED?NO PUBLIC HEALTH REFERRAL NEEDED?NO WAS THE PROVIDER NOTIFIED OF ANY PERTINENT INFO?YES HAS THE PATIENT BEEN EDUCATED REGARDING HIS/HER PLAN OF CARE?YES HAS THE PATIENT BEEN EDUCATED REGARDING PAIN, THE RISK FOR PAIN, THE IMPORTANCE OF EFFECTIVE PAIN MANAGEMENT, AND THE PAIN ASSESSMENT PROCESS?YES HOUSING: OWNS HOME. ADVANCE DIRECTIVE ADVANCE DIRECTIVE DISCUSSED WITH PATIENT:YES ANCELMO BARNETT [phone] (SO) HOSPITALIZATION/MAJOR DIAGNOSTIC PROCEDURE CHILDBIRTH SURGERIES SEIZURES WHEN YOUNGER REVIEW OF SYSTEMS CONSTITUTIONAL: ANY RECENT FEVER NO . CHILLS NO . WEIGHT CHANGE OF UNKNOWN REASONS NO . GASTROENTEROLOGY: NEW UNEXPLAINABLE CHANGES IN BOWEL CONTROL NO . CONSTIPATION NO . GENITOURINARY: ANY NEW CHANGE IN BLADDER CONTROL? NO . NEUROLOGY: NEW ONSET DIZZINESS OR NEUROLOGICAL CHANGES NOT MENTIONED NO . NEW NUMBNESS OR PAIN PATTERNS NOT MENTIONED AND PERTINENT TO TODAY'S VISIT NO . CARDIOLOGY: NEW CHEST PRESSURE NO . NEW CHEST PAIN NO . RESPIRATORY: UNEXPLAINABLE COUGH NO . NEW SHORTNESS OF BREATH NO . VITAL SIGNS WT 174 LBS, HT 63.5 IN, BMI 30.34 INDEX, BP 113/70 MM HG, HR 72 /MIN, RR 16 /MIN, TEMP 96.4 F, OXYGEN SAT % 98%, SAFE IN ENV? (Y/N) Y, NA INITIALS VT 09:50, REVIEWED BY: EM. EXAMINATION GENERAL EXAMINATION: GENERAL AWAKE,ALERT ,PLEAASANT . PSYCH AFFECT NORMAL . LUNGS: LUNG GONZALEZ ARE CLEAR TO AUSCULTATION BILATERALLY. GOOD MOVEMENT OF AIR . HEART: S1, S2 IN A REGULAR RATE AND RHYTHM. NO SIGNIFICANT MURMURS, RUBS OR GALLOPS NOTED . CERVICAL: TRIGGER POINTS: CERVICAL AND TRAPEZIUS RIGHT..PAIN IS AGGREVATED WITH ROJM NECK TRIGGER POINTS ELICITED RIGHT UPPER BACK/SCAPULAR/RHIMBOID REGION.PAIN IN THIS AREA IS AGGREVATED WITH ROJM NECK AND RIGHT ARM. DIAGNOSTIC TESTS REVIEWED MRI CERVICAL SPINE-02/2018. ASSESSMENTS MYALGIA, OTHER SITE - M79.18 (PRIMARY) OTHER CHRONIC PAIN - G89.29 TREATMENT MYALGIA, OTHER SITE [facility] RE[facility]ON:HISTORY OF RIGHT SHOULDER SURGERY/REMOTE. SHORT-TERM IMPROVEMENT WITH TRIGGER POINT INJECTIONS RIGHT SCAPULAR AREA OF PAIN FOR SHORT PERIOD OF TIME. PLEASE EVALUATE PERSISTENT RIGHT UPPER BACK AND SHOULDER PAIN OTHER CHRONIC PAIN PAIN PROCEDURE LOGDATE OF [id number]/20/20PROCEDURE:TRIGGER POINT INJECTIONS RIGHT THORACICAMOUNT OF PRE SEDATEVALIUM 10MGRESULT:1 WEEK IMPROVEMENT THEN GRADUAL RETURN TO BASELINE. PROCEDURE CODES FA211 ESTABILISHED PATIENT [facility] CHARGE DISPOSITION & COMMUNICATION FOLLOW UP 3 MONTHS (REASON: RIGHT UPPER BACK PAIN/RIGHT SHOULDER PAIN/FOLLOW-UP [facility] REFERRAL) ELECTRONICALLY SIGNED BY ALEM YOUSSEF ON 07/16/2020 AT 10:14 AM EST DISCLAIMER : THIS IS A VISIT SUMMARY EXTRACTED FROM THE [employer]CLIN[employer] CHART. IT IS NOT A COPY OF THE videoNEXTINICALWORKS PROGRESS NOTE. CHIP
== END ==
LOC: M PAIN 09:45
PROVIDERS: ATTEND Nurse Practitioner Family
DX: G89.29 Other chronic pain (principal); M79.18 Myalgia, other site; G40.909 Epilepsy, unspecified, not intractable, without status epilepticus; J45.909 Unspecified asthma, uncomplicated; F32.9 Major depressive disorder, single episode, unspecified; F41.9 Anxiety disorder, unspecified; M79.7 Fibromyalgia; K59.09 Other constipation; M54.5 Low back pain; M54.2 Cervicalgia; G43.109 Migraine with aura, not intractable, without status migrainosus; Z79.899 Other long term (current) drug therapy; Z88.1 Allergy status to other antibiotic agents; Z88.5 Allergy status to narcotic agent; Z88.8 Allergy status to other drugs, medicaments and biological substances; Z91.018 Allergy to other foods

== ENCOUNTER → 2020-10-25 | Outpatient (REF) | payer MEDICARE, MEDICAID | LOC: M SFHCWAGY 13:47 | PROVIDERS: ATTEND Nurse Practitioner Family | DX: Z12.4 Encounter for screening for malignant neoplasm of cervix (principal); R87.618 Other abnormal cytological findings on specimens from cervix uteri | CPT/HCPCS: 87624; G0101; G0123 ==

== ENCOUNTER → 2020-11-08 | Outpatient (CLI) | payer MEDICARE, MEDICAID ==
--- NOTE | 2020-11-08 11:25 | REP ---
INDICATION: R10.2 PELVIC PAIN COMPARISON: 02/20/2015 TECHNIQUE: Transabdominal pelvic ultrasound followed by transvaginal examination for better evaluation of the endometrium and adnexa with color Doppler evaluation of the ovaries. FINDINGS: Bladder is unremarkable and measures 9.3 x 5.9 x 7.1 cm (204 cc). Heterogeneous myomatous anteverted uterus measures 10.5 x 5.1 x 6.4 cm. The endometrial complex measures 4.2 mm thickness. Fundal fibroid measures 1.9 x 1.6 x 2.2 cm and anterior left fibroid with submucosal component measures 4.9 x 5.0 x 4.3 cm. Bilateral ovaries are normal in appearance and vascularity without evidence for torsion. Right ovary measures 2.7 x 1.7 x 2.3 cm; R I = 0.52. Left ovary measures 1.9 x 2.7 x 2.4 cm; R I = 0.42. No pelvic fluid or adnexal mass lesion IMPRESSION: Enlarged heterogeneous myomatous changes to the uterus. <Electronically signed by Juan C Pacheco > 11/08/20 1120
== END ==
LOC: M WHC 10:24
PROVIDERS: ATTEND Nurse Practitioner Family
DX: N85.2 Hypertrophy of uterus (principal); R10.2 Pelvic and perineal pain

== ENCOUNTER → 2021-05-24 | Outpatient (REF) | payer MEDICARE, MEDICAID | LOC: M LAB REF 12:33 | PROVIDERS: ATTEND Physician Assistant | DX: R05.9 Cough, unspecified (principal) ==

== ENCOUNTER → 2021-07-19 | Outpatient (CLI) | payer MEDICARE, MEDICAID ==
[~2021-07-19] MED LIST changes: +CALC600T61 PO; +CETI-36 PO; +CYAN100050 PO; +CYMB60CA4 PO; +FLON1SPR; +NEUR300C PO; +VITA100T98 PO; +VITA1CAP14 PO; +medical marijuana INH
== END ==
LOC: M LABSMTC 10:04
PROVIDERS: ATTEND Anesthesiology
DX: Z01.812 Encounter for preprocedural laboratory examination (principal); Z20.822 Contact with and (suspected) exposure to COVID-19

== ENCOUNTER 2021-07-24 10:23 | Day surgery (SDC) | payer MEDICARE, MEDICAID ==
[~2021-07-24] VITALS: Ht 160 cm; Wt 70.3 kg
[~2021-07-24 10:23] MED LIST changes: +LIDOCAINE 2% 100MG/5ML SDV (FOR ANES.) As Ordered ONE; +LR 1,000 ML IV ONE; +MIDAZOLAM INJ 2MG/2ML VIAL (J2250 PER 1MG) As Ordered ONE; +ROCURONIUM BROMIDE 50 MG/5 ML VIAL As Ordered ONE; +ceFAZolin SOD 2 GM in IV 1 EA IV ONE; +fentaNYL 250 MCG/5 ML INJECTION (J3010) As Ordered ONE; +propofoL 200 MG/20 ML VIAL As Ordered ONE
[2021-07-24 10:57] LABS: HEMATOCRIT 39.5 % (36.0-47.0); HEMOGLOBIN 13.5 g/dl (12.0-15.5); MEAN CORPUSCULAR HEMOGLOBIN 33.3 pg (27.0-33.0); MEAN CORPUSCULAR HGB CONC 34.2 g/dl (32.0-36.5); MEAN CORPUSCULAR VOLUME 97.5 fl (80.0-96.0); PLATELET COUNT, AUTOMATED 244 10^3/uL (150-450); RED BLOOD COUNT 4.05 10^6/uL (4.00-5.40); WHITE BLOOD COUNT 4.8 10^3/uL (4.0-10.0)
[2021-07-24] MEDS ORDERED: ceFAZolin 2 GM/D5W 50 ML IV BAG (J0690 PER 500MG) As Ordered ONE (11:11)
[2021-07-24] MEDS ORDERED: BUPIVACAINE HCL 0.25% 10ML VIAL As Ordered ONE ×2 (11:14→13:05)
[2021-07-24] MEDS ORDERED: dexameTHASONE 4 MG/ML 1ML VIAL (J1100 PER 1MG) As Ordered ONE (12:07)
[2021-07-24] MEDS ORDERED: ONDANSETRON 4MG/2ML VIAL As Ordered ONE (12:07)
[2021-07-24] MEDS ORDERED: METOCLOPRAMIDE INJ 10MG/2ML VIAL (J2765 PER 1) As Ordered ONE (12:07)
[2021-07-24] MEDS ORDERED: ACETAMINOPHEN 1000MG 100ML IV BTL (OFIRMEV) (J0131 PER 10MG) As Ordered ONE (12:07)
[2021-07-24] MEDS ORDERED: KETOROLAC 60MG 2ML VIAL As Ordered ONE (12:07)
[2021-07-24] MEDS ORDERED: SUGAMMADEX SODIUM 500 MG/5 ML VIAL (BRIDION) As Ordered ONE (12:12)
[2021-07-24] MEDS ORDERED: HYDROmorphone HCL 2 MG/ML 1ML VIAL As Ordered ONE (12:15)
--- NOTE | 2021-07-24 13:03 | ROOPDOC ---
[facility] Report Of Operation Report of Operation DATE OF PROCEDURE: OPERATIVE REPORT: Preoperative diagnosis: Menorrhagia, uterine fibroids. Postoperative diagnosis: Same. Procedure: Robotic-assisted laparoscopic hysterectomy, bilateral salpingectomy. Findings: Symmetrically enlarged uterus. Normal fallopian tubes and ovaries. Normal-appearing upper abdomen. Surgeon: Nathan Anderson M.D. Freight Trucker: Shona Bell NP EBL: 50 mL's. Urine output: 100 mL's. Operative summary: Patient was taken to the operating room where general endotracheal anesthesia was induced. She was prepped and draped in sterile fashion in the dorsal lithotomy position. A Gray Catheter was placed. A V care uterine manipulator was placed. A Periumbilical incision was made with a scalpel. . A Veress needle was placed through this incision. Intra-abdominal location of Veress needle was assessed with saline filled syringe. A pneumoperitoneum was created. The Veress needle was removed. An 8 mm trocar using the Visiport was inserted through this incision. Three 8 mm suprapubic ports were placed under direct visualization The patient was placed in Trendelenburg position. The da Kennedy surgical robot was docked to the ports. Using the fenestrated bipolar instrument and vessel sealer, the broad ligament attachments to the fallopian tubes were coagulated and incised. The utero-o varian ligaments were coagulated and incised. The round ligaments were coagulated and incised. The anterior and posterior leaves of the broad ligament were . Bladder flap was created. The uterine vessels were coagulated and incised using monopolar Endo Ashlie. A colpotomy was created in the upper vagina at the level of the V care Cup. The specimen including the uterus, ce rvix, and fallopian tubes was removed through the vagina. The vaginal cuff was closed with #1 V lock suture in running fashion. All instruments removed. The skin was closed with 4-0 Monocryl subcuticular sutures. Shona Bell NP assisted with all aspects of the procedure. She helped position the patient. She helped insert the ports and manipulate the uterus. She removed the specimen. NATHAN ANDERSON MD Jul 24, 2021 13:03
[2021-07-24] MEDS ORDERED: OXYC1TAB23 PO (13:04)
[2021-07-24] MEDS ORDERED: IBUP-1022 PO (13:05)
[2021-07-24] MEDS ORDERED: fentaNYL 100 MCG/2 ML INJECTION (J3010) IV PRN (13:20)
[2021-07-24] MEDS ORDERED: ONDANSETRON 4MG/2ML VIAL IV PRN ×2 (13:20→13:30)
[2021-07-24] MEDS ORDERED: oxyCODONE 5MG TAB PO PRN (13:20)
[2021-07-24] MEDS ORDERED: LR 1,000 ML IV SCH ×2 (13:20→13:30)
[2021-07-24] MEDS ORDERED: KETOROLAC 30 MG/ML 1ML VIAL IV PRN (13:30)
[2021-07-24] MEDS ORDERED: PERCOCET 5MG/325MG TAB PO PRN (13:30)
[2021-07-24 15:30] VITALS: BP 136/65
[2021-07-24] MEDS ORDERED: DOCUSATE SODIUM 100MG CAPSULE PO SCH (21:00)
== END 2021-07-24 16:54 | disposition home or self-care (01) ==
LOC: M SDC 10:23
PROVIDERS: ATTEND Specialist
DX: N92.1 Excessive and frequent menstruation with irregular cycle (principal); D25.9 Leiomyoma of uterus, unspecified; K21.9 Gastro-esophageal reflux disease without esophagitis; M79.7 Fibromyalgia; F32.A Depression, unspecified; F41.9 Anxiety disorder, unspecified; J45.909 Unspecified asthma, uncomplicated; Z88.5 Allergy status to narcotic agent; Z88.1 Allergy status to other antibiotic agents; Z91.048 Other nonmedicinal substance allergy status; Z91.018 Allergy to other foods; Z79.899 Other long term (current) drug therapy; Z87.891 Personal history of nicotine dependence
CPT/HCPCS: 36415; 58554; 81025; 85027; 86850; 86900; 86901; 88307; J0131; J0690; J1100; J1170; J1885; J2250; J2405; J2765; J3010; S2900; U0002

== ENCOUNTER → 2022-09-30 | Outpatient (CLI) | payer MEDICARE, MEDICAID ==
[~2022-09-30] MED LIST changes: +IBUP-1022 PO; -LIDOCAINE 2% 100MG/5ML SDV (FOR ANES.) As Ordered ONE; -LR 1,000 ML IV ONE; -MIDAZOLAM INJ 2MG/2ML VIAL (J2250 PER 1MG) As Ordered ONE; +OXYC1TAB23 PO; -ROCURONIUM BROMIDE 50 MG/5 ML VIAL As Ordered ONE; -ceFAZolin SOD 2 GM in IV 1 EA IV ONE; -fentaNYL 250 MCG/5 ML INJECTION (J3010) As Ordered ONE; -propofoL 200 MG/20 ML VIAL As Ordered ONE
[2022-09-30 08:55] LABS: PLATELET COUNT, AUTOMATED 252 10^3/uL (150-450)
[2022-09-30 09:12] LABS: COLLAGEN EPINEPHRINE 104 SECONDS (74-162)
[2022-09-30 09:21] LABS: INR 0.96
[2022-09-30 09:22] LABS: PARTIAL THROMBOPLASTIN TIME 26.4 SECONDS (24.8-34.2)
[2022-09-30 09:24] LABS: URINE PREG TEST NEGATIVE (NEGATIVE)
== END ==
LOC: M LAB 08:20
PROVIDERS: ATTEND Physical Medicine & Rehabilitation
DX: Z01.812 Encounter for preprocedural laboratory examination (principal)

== ENCOUNTER → 2024-08-19 | Outpatient (CLI) | payer MEDICARE, MEDICAID ==
[~2024-08-19] MED LIST changes: +CYAN-1 PO; -CYAN100050 PO; +EFFE75CA2 PO
== END ==
LOC: M RAD 13:57
PROVIDERS: ATTEND Physician Assistant
DX: N20.1 Calculus of ureter (principal)

== ENCOUNTER 2024-09-23 08:00 | Day surgery (SDC) | payer MEDICARE, MEDICAID ==
[~2024-09-23] VITALS: Ht 160 cm; Wt 70.8 kg
[~2024-09-23 08:00] MED LIST changes: +AIMO70IN2 SC; +CARB200C4 PO; +CETI-24 PO; +DEXI60CA2 PO; +DULO1CAP6 PO; +FEXO-193 PO; +GABA-1490 PO; +GLYCOPYRROLATE INJ 0.2 MG/ML 2 ML VIAL As Ordered ONE; +LACO200T PO; +LAMO25TA4 PO; +LEVO50TA5 PO; +LEVOTAB10 PO; +LIDOCAINE 2% 100MG/5ML SDV (FOR ANES.) As Ordered ONE; +MIDAZOLAM INJ 2MG/2ML VIAL As Ordered ONE; +MONT10TA97 PO; +NEUR100C PO; +ONDANSETRON 4MG 2ML VIAL As Ordered ONE; +THERTAB52 PO; +TIZA2TA PO; +TRIMETHOPRIM/SULFAMETHOXAZOLE 160 MG in D5W 250 ML IV ONE; +UBRO100T PO; +VENL37.598 PO; +fentaNYL 100 MCG/2 ML INJECTION As Ordered ONE; +propofoL 200 MG/20 ML VIAL As Ordered ONE
[2024-09-23] MEDS ORDERED: LR 1,000 ML IV SCH (08:50)
[2024-09-23] MEDS ORDERED: HYDROmorphone HCL 2MG/ML 1ML VIAL As Ordered ONE (11:33)
[2024-09-23] MEDS ORDERED: ACETAMINOPHEN 1000MG/100ML IV BAG As Ordered ONE (12:09)
[2024-09-23] MEDS: ceFAZolin SOD 2 GM in IV 1 EA IV ONE (12:22)
[2024-09-23] MEDS: ISOVUE-300 61% 100ML VIAL As Ordered ONE (12:22)
[2024-09-23] MEDS ORDERED: fentaNYL 100 MCG/2 ML INJECTION IV PRN (12:30)
[2024-09-23] MEDS ORDERED: ONDANSETRON 4MG 2ML VIAL IV PRN (12:30)
[2024-09-23 13:27] VITALS: BP 116/61; TEMP 97.9; O2SAT 99
== END 2024-09-23 13:35 | disposition home or self-care (01) ==
LOC: M SDC 08:00
PROVIDERS: ATTEND Urology
DX: N20.1 Calculus of ureter (principal); E11.9 Type 2 diabetes mellitus without complications; J30.89 Other allergic rhinitis; Z88.1 Allergy status to other antibiotic agents; Z88.5 Allergy status to narcotic agent; Z88.4 Allergy status to anesthetic agent; Z88.8 Allergy status to other drugs, medicaments and biological substances; Z91.018 Allergy to other foods
CPT/HCPCS: 52351; 76000; C1769; J0131; J0690; J1100; J1171; J1596; J2250; J2405; J3010; Q9967